=== PATIENT | female | born 1965 | race Two or more races ===

== ENCOUNTER 2021-05-01 21:59 | Inpatient (IN) | payer MEDICARE, OTHER ==
[2021-05-02] MEDS ORDERED: ONDANSETRON 4 MG/2 ML VIAL IVP PRN (03:34)
[2021-05-02] MEDS ORDERED: NALOXONE 0.4 MG/ML 1 ML VIAL IV PRN (03:34)
[2021-05-02] MEDS ORDERED: MELATONIN 3 MG TABLET PO PRN (03:34)
[2021-05-02] MEDS ORDERED: TACROLIMUS 1 MG CAP PO SCH ×2 (04:00→09:00)
[2021-05-02] MEDS: ACETAMINOPHEN TAB 325 MG TAB PO PRN ×2 (04:10→20:48)
[2021-05-02 05:02] LABS: Basophils % (A) 0 %; Eosinophils % (A) 0 %; HGB 12.5 gm/dL (11.4-16.0); Hypochromasia Moderate; Lymphocytes % (A) 9 %; MCH 26.4 pg (25.0-35.0); MCHC 30.4 g/dL (31.0-37.0); MCV 86.9 fL (80.0-100.0); Mean Platelet Volume 8.5; Monocytes # (A) 0.4 k/uL (0-1.0); Monocytes % (A) 4 %; Neutrophils # (A) 9.3 k/uL (1.3-7.7); Neutrophils % (A) 85 %; Platelet Count 132 k/uL (150-450); RBC 4.72 m/uL (3.80-5.40); RDW 14.3 % (11.5-15.5); WBC 10.8 k/uL (3.8-10.6)
[2021-05-02 05:11] LABS: ALT 19 U/L (4-34); AST 31 U/L (14-36); African American GFR (CKD) 78 (>60 ml/min/1.73 sqM); Albumin 3.9 g/dL (3.5-5.0); Albumin/Globulin Ratio 1.3; Alkaline Phosphatase 87 U/L (38-126); Anion Gap 14 mmol/L; Blood Urea Nitrogen 21 mg/dL (7-17); Calcium 8.7 mg/dL (8.4-10.2); Carbon Dioxide 18 mmol/L (22-30); Chloride 104 mmol/L (98-107); Glucose 351 mg/dL (74-99); Magnesium 1.5 mg/dL (1.6-2.3); Non-African American GFR(CKD) 68 (>60 ml/min/1.73 sqM); Potassium 4.4 mmol/L (3.5-5.1); Sodium 136 mmol/L (137-145); Total Bilirubin 0.3 mg/dL (0.2-1.3); Total Protein 6.9 g/dL (6.3-8.2)
[2021-05-02 07:52] LABS: Glucose,Whole Blood 333 mg/dL (75-99)
[2021-05-02] MEDS: HEPARIN SODIUM,PORCINE/PF 5,000 UNIT/0.5 ML SYRINGE SQ SCH ×2 (08:18→20:45)
[2021-05-02] MEDS: ASCORBIC ACID 500 MG TAB PO SCH (08:19)
[2021-05-02] MEDS: LEVOTHYROXINE 75 MCG TAB PO SCH (08:19)
[2021-05-02] MEDS: MAGNESIUM OXIDE 400 MG TAB PO SCH (08:19)
[2021-05-02] MEDS: carvediloL 3.125 MG TAB PO SCH ×3 (08:19→20:49)
[2021-05-02] MEDS: ATORVASTATIN 20 MG TAB PO SCH (08:19)
[2021-05-02] MEDS: amLODIPine 5 MG TAB PO SCH (08:19)
[2021-05-02] MEDS: ZINC SULFATE 220 MG CAP PO SCH (08:19)
[2021-05-02] MEDS: INSULIN ASPART (NovoLOG) 100 UNIT/ML VIAL SQ SCH ×6 (08:19→20:49)
[2021-05-02] MEDS: FERROUS SULFATE 325 MG TAB PO SCH (08:19)
[2021-05-02] MEDS: BENZOCAINE SPRAY 1 CAN TOPICAL PRN (10:02)
--- NOTE | 2021-05-02 11:53 | XR ---
EXAMINATION TYPE: XR chest 1V DATE OF EXAM: 05/02/2021 COMPARISON: NONE HISTORY: Cough TECHNIQUE: Single frontal view of the chest is obtained. FINDINGS: Bilateral lower lobe infiltrate and small effusion. Limited inspiration. Heart size normal . Hypertrophic change of the spine. No pneumothorax. Arthropathy of the shoulders. IMPRESSION: Bilateral lower lobe pneumonia.
[2021-05-02 11:54] LABS: Glucose,Whole Blood 315 mg/dL (75-99)
[2021-05-02 12:00] LABS: Basophils % (A) 0 %; Eosinophils % (A) 0 %; HCT 37.8 % (34.0-46.0); Hypochromasia Slight; Lymphocytes # (A) 1.1 k/uL (1.0-4.8); Lymphocytes % (A) 11 %; MCHC 31.6 g/dL (31.0-37.0); MCV 85.4 fL (80.0-100.0); Mean Platelet Volume 7.8; Monocytes # (A) 0.3 k/uL (0-1.0); Monocytes % (A) 3 %; Neutrophils # (A) 8.5 k/uL (1.3-7.7); Neutrophils % (A) 84 %; Platelet Count 133 k/uL (150-450); RBC 4.43 m/uL (3.80-5.40); RDW 14.4 % (11.5-15.5)
[2021-05-02 12:15] LABS: ALT 18 U/L (4-34); AST 28 U/L (14-36); African American GFR (CKD) 78 (>60 ml/min/1.73 sqM); Albumin 3.7 g/dL (3.5-5.0); Albumin/Globulin Ratio 1.2; Alkaline Phosphatase 78 U/L (38-126); Anion Gap 10 mmol/L; Blood Urea Nitrogen 22 mg/dL (7-17); C Reactive Protein 6.1 mg/dL (<1.0); Calcium 8.6 mg/dL (8.4-10.2); Carbon Dioxide 21 mmol/L (22-30); Chloride 106 mmol/L (98-107); Glucose 332 mg/dL (74-99); LDH 641 U/L (313-618); Non-African American GFR(CKD) 68 (>60 ml/min/1.73 sqM); Sodium 137 mmol/L (137-145); Total Bilirubin 0.3 mg/dL (0.2-1.3); Total Protein 6.7 g/dL (6.3-8.2)
[2021-05-02] MEDS: INSULIN DETEMIR (LEVEMIR) 100 UNIT/ML SYR SQ SCH (12:15)
[2021-05-02] MEDS: MAGNESIUM SULFATE-D5W PMX 1 GM in DEXTROSE/WATER 1 100ML.BAG IVPB SCH ×2 (12:15→13:33)
[2021-05-02 12:42] LABS: Potassium 4.1 mmol/L (3.5-5.1)
[2021-05-02] MEDS: BENZOCAINE/MENTHOL LOZENG 1 EACH LOZENGE MUCOUS MEM PRN ×2 (13:39→20:46)
--- NOTE | 2021-05-02 14:50 | P.HPIM ---
History of Present Illness Patient is pleasant 55-year-old post renal transplant came in with comments of cough or sore throat, odynophagia secondary to sore throat and cough and fever chills. Patient is found to have positive Covid 19. Patient was subsequently transferred here patient was bit hypoxic and was requiring oxygen about 2 L. Patient is still having fevers. Patient the blood sugars are uncontrolled and significantly high because of which I didn't started the patient on any systemic steroids yet my intention is to get a chest x-ray did show significant infiltrate to start her on steroids at that time. Patient does have history of renal transplant kidney function is within normal limits patient is on tacrolimus, mycophenolate with low magnesium which will be replaced. Infectious disease was consulted as well along with nephrology. Patient was comparing of shortness of breath as well REVIEW OF SYSTEMS: CONSTITUTIONAL: No fever, no malaise, no fatigue. HEENT: No recent visual problems or hearing problems. CARDIOVASCULAR: No chest pain, orthopnea, PND, no palpitations, no syncope. PULMONARY:no hemoptysis. GASTROINTESTINAL: No diarrhea, no nausea, no vomiting, no abdominal pain. NEUROLOGICAL: No headaches, no weakness, no numbness. HEMATOLOGICAL: Denies any bleeding or petechiae. GENITOURINARY: Denies any burning micturition, frequency, or urgency. MUSCULOSKELETAL/RHEUMATOLOGICAL: Denies any joint pain, swelling, or any muscle pain. ENDOCRINE: Denies any polyuria or polydipsia. The rest of the 14-point review of systems is negative. PHYSICAL EXAMINATION: GENERAL: The patient is alert and oriented x3, not in any acute distress. Well developed, well nourished. HEENT: Pupils are round and equally reacting to light. EOMI. No scleral icterus. No conjunctival pallor. Normocephalic, atraumatic. No pharyngeal erythema. No thyromegaly. CARDIOVASCULAR: S1 and S2 present. No murmurs, rubs, or gallops. PULMONARY: Chest is clear to auscultation, no wheezing or crackles. ABDOMEN: Soft, nontender, nondistended, normoactive bowel sounds. No palpable organomegaly. MUSCULOSKELETAL: No joint swelling or deformity. EXTREMITIES: No cyanosis, clubbing, or pedal edema. NEUROLOGICAL: Gross neurological examination did not reveal any focal deficits. SKIN: No rashes. Assessment and plan -Sepsis Secondary to possible Covid 19 pneumonia: Considering her highly elevated blood sugars I will leave the decision of starting her on systemic steroids to infectious disease., Patient sore throat and a failure probably related to posterior pharyngeal inflammation. Covid 19 infection. Patient's symptom onset was 3 days ago patient is already feeling better considering her a daily of symptoms probably it's better to hold off on steroids. Continue with oxygen support --Type 2 diabetes mellitus: Uncontrolled elevated blood sugars patient was started on her home regimen titration depending on her blood sugars -Hyperlipidemia -Hypertension -Hyperthyroidism -Post renal transplant renal transplant was in 2011 continue with the immunosuppressive therapy DVT prophylaxis: Lovenox Past Medical History Past Medical History: Diabetes Mellitus, Hyperlipidemia, Hypertension, Thyroid Disorder History of Any Multi-Drug Resistant Organisms: None Reported Additional Past Surgical History / Comment(s): kidney transplant in 2011 Past Anesthesia/Blood Transfusion Reactions: No Reported Reaction Past Psychological History: No Psychological Hx Reported Smoking Status: Never smoker Past Alcohol Use History: None Reported Past Drug Use History: None Reported Medications and Allergies Home Medications Medication Instructions Recorded Confirmed Type Allopurinol [Zyloprim] 100 mg PO Q48H 05/02/21 05/02/21 History Atorvastatin [Lipitor] 20 mg PO DAILY 05/02/21 05/02/21 History Carvedilol [Coreg] 3.125 mg PO BID 05/02/21 05/02/21 History Ferrous Sulfate [Iron (65 MG 325 mg PO DAILY 05/02/21 05/02/21 History Elemental)] Furosemide [Lasix] 20 mg PO Q48H 05/02/21 05/02/21 History Insulin Aspart [NovoLOG Flexpen] 10 units SQ AC-TID 05/02/21 05/02/21 History Insulin Aspart [NovoLOG Flexpen] See Protocol SQ AC-TID 05/02/21 05/02/21 History Insulin Glargine,Hum.rec.anlog 60 units SQ DAILY 05/02/21 05/02/21 History [Toujeo Solostar] Levothyroxine Sodium [Synthroid] 75 mcg PO DAILY 05/02/21 05/02/21 History Magnesium Oxide 400 mg PO DAILY 05/02/21 05/02/21 History Mycophenolate Mofetil [Cellcept] 500 mg PO BID 05/02/21 05/02/21 History Potassium Chloride 10 meq PO DAILY 05/02/21 05/02/21 History Tacrolimus [Prograf] 2 mg PO Q12H 05/02/21 05/02/21 History amLODIPine [Norvasc] 5 mg PO DAILY 05/02/21 05/02/21 History calcitrioL [Calcitriol] 0.25 mcg PO MOWEFRSA 05/02/21 05/02/21 History Allergies Allergy/AdvReac Type Severity Reaction Status Date / Time clindamycin Allergy Rash/Hives Verified 05/02/21 07:02 Physical Exam Vitals: Vital Signs Temp Pulse Resp BP Pulse Ox 05/02/21 14:04 99.1 F 71 17 114/66 97 05/02/21 09:19 98.5 F 83 18 128/63 94 L 05/02/21 05:48 100 F H 05/02/21 03:49 94 L 05/02/21 03:36 103.1 F H 05/02/21 03:20 103.6 F H 85 19 169/84 94 L 05/02/21 02:17 103 F H 87 24 163/78 96 Intake and Output 05/01/21 05/02/21 05/02/21 22:59 06:59 14:59 Other: # Voids 2 # Bowel Movements 1 Weight 103.419 kg Results CBC & Chem 7: 05/02/21 11:38 05/02/21 11:38 Labs: Abnormal Lab Results - Last 24 Hours (Table) 05/02/21 05/02/21 05/02/21 Range/Units 04:35 04:35 07:46 WBC 10.8 H (3.8-10.6) k/uL MCHC 30.4 L (31.0-37.0) g/dL Plt Count 132 L (150-450) k/uL Neutrophils # 9.3 H (1.3-7.7) k/uL D-Dimer (<0.60) mg/L FEU Sodium 136 L (137-145) mmol/L Carbon Dioxide 18 L (22-30) mmol/L BUN 21 H (7-17) mg/dL Glucose 351 H (74-99) mg/dL POC Glucose (mg/dL) 333 H (75-99) mg/dL Magnesium 1.5 L (1.6-2.3) mg/dL Lactate Dehydrogenase (313-618) U/L C-Reactive Protein (<1.0) mg/dL 05/02/21 05/02/21 05/02/21 Range/Units 11:38 11:38 11:38 WBC (3.8-10.6) k/uL MCHC (31.0-37.0) g/dL Plt Count 133 L (150-450) k/uL Neutrophils # 8.5 H (1.3-7.7) k/uL D-Dimer 0.68 H (<0.60) mg/L FEU Sodium (137-145) mmol/L Carbon Dioxide 21 L (22-30) mmol/L BUN 22 H (7-17) mg/dL Glucose 332 H (74-99) mg/dL POC Glucose (mg/dL) (75-99) mg/dL Magnesium (1.6-2.3) mg/dL Lactate Dehydrogenase 641 H (313-618) U/L C-Reactive Protein 6.1 H (<1.0) mg/dL 05/02/21 Range/Units 11:48 WBC (3.8-10.6) k/uL MCHC (31.0-37.0) g/dL Plt Count (150-450) k/uL Neutrophils # (1.3-7.7) k/uL D-Dimer (<0.60) mg/L FEU Sodium (137-145) mmol/L Carbon Dioxide (22-30) mmol/L BUN (7-17) mg/dL Glucose (74-99) mg/dL POC Glucose (mg/dL) 315 H (75-99) mg/dL Magnesium (1.6-2.3) mg/dL Lactate Dehydrogenase (313-618) U/L C-Reactive Protein (<1.0) mg/dL Thrombosis Risk Factor Assmnt - Choose All That Apply Each Factor Represents 1 point: Obesity (BMI >25) Other Risk Factors: No Other congenital or acquired thrombophilia - If yes, enter type in comment: No Thrombosis Risk Factor Assessment Total Risk Factor Score: 1 Thrombosis Risk Factor Assessment Level: Low Risk
[2021-05-02 14:53] LABS: Hemoglobin A1C 9.1 % (4.0-6.0)
[2021-05-02 16:38] LABS: Glucose,Whole Blood 186 mg/dL (75-99)
--- NOTE | 2021-05-02 19:03 | CONS ---
CONSULTATION REASON FOR CONSULT: History of renal transplant. HISTORY OF PRESENT ILLNESS: Patient is a 55-year-old female with history of living related renal transplant from her brother in 2011 in [place]. The patient is currently maintained on CellCept and tacrolimus. Her baseline creatinine is less than 1 and at this time patient is admitted to the hospital with complaints of severe pain in her throat and upper respiratory tract symptoms. Patient tested positive for israel virus. She states that currently she has had good urine output. Patient is maintained on 2 L nasal cannula with O2 sats at about 94%. PAST MEDICAL HISTORY Type 2 DM, HTN, hyperlipidemia, hypothyroidism PAST SURGICAL HISTORY Renal transplant 2011 SOCIAL HISTORY negative for smoking, drug abuse or alcohol abuse. MEDICATIONS Prograf, cellcept, lasix, insulin, magnesium,synthroid, norvasc, calcitriol.potassium ALLERGIES Clindamycin EXAMINATION: On examination today, blood pressure 128/63, heart rate 83 per minute. She is afebrile. Examination of lower extremities shows no evidence of edema. OPTICS ENGINEER exam grossly intact. LABS: Show hemoglobin 12.5, white cell count 10.8, sodium 136, potassium 4.4, BUN 21, creatinine 0.96, CO2 is 18. ASSESSMENT: 1. Status post living-related renal transplant in 2011 in [place]. Currently maintained on CellCept and tacrolimus. I have advised the patient that I will decrease the CellCept and tacrolimus due to her underlying Covid infection, particularly given her respiratory symptoms. Chest x-ray has been ordered. We will monitor the respiratory symptoms and if her respiratory status worsens, all immunosuppressive medications will be on hold. Patient will likely be started on steroids as well. 2. Covid infection with significant sore throat and possible underlying COVID pneumonia. Chest x-ray is currently pending. 3. Mild metabolic acidosis secondary to calcineurin inhibitors. Recheck labs in a.m. 4. Secondary hyperparathyroidism, maintained on calcitriol. PLAN: Decrease Prograf to 1 mg q.12 hours. Decrease CellCept to 500 mg daily add steroids as per ID and if respiratory status worsens, I will discontinue all immunosuppressive medications. Thank you for this consultation. We will continue to follow the patient with you during her hospitalization. MMODL / IJN: [id number] / VONDA
[2021-05-02] MEDS ORDERED: AZITHROMYCIN 500 MG TAB PO STA (19:49)
[2021-05-02 20:29] LABS: Glucose,Whole Blood 97 mg/dL (75-99)
[2021-05-02] MEDS: TACROLIMUS 1 MG CAP PO SCH ×2 (20:47→20:50)
--- NOTE | 2021-05-02 22:27 | P.CONS ---
History of Present Illness - Reason for Consult Consult date: 05/02/21 COVID-19 infection Requesting physician: Liss Horton - Chief Complaint sore throat x few days - History of Present Illness Patient is a 55-year-old female with a past medical history significant for living related renal transplant in 2011 patient is currently maintained on CellCept and tacrolimus for the immunosuppression patient presented to the outside facility for evaluation of cough and sore throat the patient symptom has been going on for a day or 2 before presentation to the hospital patient was evaluated at the outside facility with the patient was noted to have rapid test positive for COVID-19 she was hypoxic for the patient was transferred to [facility] for further management patient did have a 2 shots of moderna vaccine few months ago, patient denies any sick contact did have mild headache and a sore throat been her main symptoms and odynophagia. Denies having any chest pain shortness of breath minimal cough no sputum production no nausea no vomiting no abdominal pain or any diarrhea patient on presentation to this facility did have a fever of 103 F patient was hypoxic with O2 sats of 94% currently 96% on 2 L nasal cannula patient did have mild elevated white count of 10.8 with a left shift no lymphopenia creatinine was normal liver enzymes are normal patient did have a chest x-ray completed shows bilateral lower lobe pneumonia patient was admitted to hospital for she was consulted for further management Review of Systems Positive point has been mentioned in the HPI rest of the systems are negative Past Medical History Past Medical History: Diabetes Mellitus, Hyperlipidemia, Hypertension, Thyroid Disorder History of Any Multi-Drug Resistant Organisms: None Reported Additional Past Surgical History / Comment(s): kidney transplant in 2011 Past Anesthesia/Blood Transfusion Reactions: No Reported Reaction Past Psychological History: No Psychological Hx Reported Smoking Status: Never smoker Past Alcohol Use History: None Reported Past Drug Use History: None Reported Medications and Allergies Home Medications Medication Instructions Recorded Confirmed Type Allopurinol [Zyloprim] 100 mg PO Q48H 05/02/21 05/02/21 History Atorvastatin [Lipitor] 20 mg PO DAILY 05/02/21 05/02/21 History Carvedilol [Coreg] 3.125 mg PO BID 05/02/21 05/02/21 History Ferrous Sulfate [Iron (65 MG 325 mg PO DAILY 05/02/21 05/02/21 History Elemental)] Furosemide [Lasix] 20 mg PO Q48H 05/02/21 05/02/21 History Insulin Aspart [NovoLOG Flexpen] 10 units SQ AC-TID 05/02/21 05/02/21 History Insulin Aspart [NovoLOG Flexpen] See Protocol SQ AC-TID 05/02/21 05/02/21 History Insulin Glargine,Hum.rec.anlog 60 units SQ DAILY 05/02/21 05/02/21 History [Toujeo Solostar] Levothyroxine Sodium [Synthroid] 75 mcg PO DAILY 05/02/21 05/02/21 History Magnesium Oxide 400 mg PO DAILY 05/02/21 05/02/21 History Mycophenolate Mofetil [Cellcept] 500 mg PO BID 05/02/21 05/02/21 History Potassium Chloride 10 meq PO DAILY 05/02/21 05/02/21 History Tacrolimus [Prograf] 2 mg PO Q12H 05/02/21 05/02/21 History amLODIPine [Norvasc] 5 mg PO DAILY 05/02/21 05/02/21 History calcitrioL [Calcitriol] 0.25 mcg PO MOWEFRSA 05/02/21 05/02/21 History Allergies Allergy/AdvReac Type Severity Reaction Status Date / Time clindamycin Allergy Rash/Hives Verified 05/02/21 07:02 Physical Exam Vitals: Vital Signs Temp Pulse Resp BP Pulse Ox 05/02/21 09:19 98.5 F 83 18 128/63 94 L 05/02/21 05:48 100 F H 05/02/21 03:49 94 L 05/02/21 03:36 103.1 F H 05/02/21 03:20 103.6 F H 85 19 169/84 94 L 05/02/21 02:17 103 F H 87 24 163/78 96 Intake and Output 05/01/21 05/02/21 05/02/21 22:59 06:59 14:59 Other: # Voids 2 # Bowel Movements 1 Weight 103.419 kg GENERAL DESCRIPTION: Middle-aged female lying in bed, no distress. No tachypnea or accessory muscle of respiration use. HEENT: Shows Pallor , no scleral icterus. Oral mucous membrane is dry. No pharyngeal erythema or thrush NECK: Trachea central, no thyromegaly. LUNGS: Unlabored breathing. decreased breath sounds at base. No wheeze or crackle. HEART: S1, S2, regular rate and rhythm. No loud murmur ABDOMEN: Soft, no tenderness , guarding or rigidity, no organomegaly EXTREMITIES: No edema of feet. SKIN: No rash, no masses palpable. NEUROLOGICAL: The patient is awake, alert, oriented x3, mood and affect normal. Results CBC & Chem 7: 05/02/21 11:38 05/02/21 11:38 Labs: Abnormal Lab Results - Last 24 Hours (Table) 05/02/21 05/02/21 05/02/21 Range/Units 04:35 04:35 07:46 WBC 10.8 H (3.8-10.6) k/uL MCHC 30.4 L (31.0-37.0) g/dL Plt Count 132 L (150-450) k/uL Neutrophils # 9.3 H (1.3-7.7) k/uL Sodium 136 L (137-145) mmol/L Carbon Dioxide 18 L (22-30) mmol/L BUN 21 H (7-17) mg/dL Glucose 351 H (74-99) mg/dL POC Glucose (mg/dL) 333 H (75-99) mg/dL Magnesium 1.5 L (1.6-2.3) mg/dL Assessment and Plan Assessment: patient presented to hospital with a fever sore throat in this patient who did have a cough no sputum production patient did have a 2 doses of Covid vaccine few months ago currently do not have any lymphopenia or any evidence of blood loss peripheral infiltrate which is usually pathognomonic for COVID-19 pneumonia possible community-acquired pneumonia versus COVID-19 infection (1) Pneumonia Current Visit: Yes Status: Acute Code(s): J18.9 - PNEUMONIA, UNSPECIFIED ORGANISM SNOMED Code(s): 139664075 (2) Fever Current Visit: Yes Status: Acute Code(s): R50.9 - FEVER, UNSPECIFIED SNOMED Code(s): 055309716 Plan: 1-We will obtain a CRP procalcitonin D-dimer levels , check nasopharyngeal swab for israel PCR as well as COVID-19 antibodies 2-obtain sputum for Gram stain culture 3-empirically add Rocephin and Zithromax while waiting for the work-up to finalize We will follow on clinical condition and cultures to further adjust medication if needed Thank you for this consultation we will follow the patient along with you Time with Patient: Greater than 30
[2021-05-03] MEDS: BENZOCAINE SPRAY 1 CAN TOPICAL PRN (05:37)
[2021-05-03] MEDS: LEVOTHYROXINE 75 MCG TAB PO SCH (05:38)
[2021-05-03 07:34] LABS: Glucose,Whole Blood 101 mg/dL (75-99)
[2021-05-03] MEDS: INSULIN ASPART (NovoLOG) 100 UNIT/ML VIAL SQ SCH ×7 (08:39→21:48)
[2021-05-03] MEDS: FERROUS SULFATE 325 MG TAB PO SCH (08:50)
[2021-05-03] MEDS: HEPARIN SODIUM,PORCINE/PF 5,000 UNIT/0.5 ML SYRINGE SQ SCH ×2 (08:50→19:42)
[2021-05-03] MEDS: INSULIN DETEMIR (LEVEMIR) 100 UNIT/ML SYR SQ SCH (08:50)
[2021-05-03] MEDS: carvediloL 3.125 MG TAB PO SCH ×2 (08:50→19:42)
[2021-05-03] MEDS: ATORVASTATIN 20 MG TAB PO SCH (08:50)
[2021-05-03] MEDS: ASCORBIC ACID 500 MG TAB PO SCH (08:50)
[2021-05-03] MEDS: MAGNESIUM OXIDE 400 MG TAB PO SCH (08:50)
[2021-05-03] MEDS: amLODIPine 5 MG TAB PO SCH (08:50)
[2021-05-03] MEDS: ZINC SULFATE 220 MG CAP PO SCH (08:50)
[2021-05-03] MEDS: TACROLIMUS 1 MG CAP PO SCH ×2 (08:51→19:43)
[2021-05-03] MEDS: ACETAMINOPHEN TAB 325 MG TAB PO PRN ×3 (08:53→19:39)
[2021-05-03 12:24] LABS: Glucose,Whole Blood 93 mg/dL (75-99)
[2021-05-03] MEDS: NYSTATIN 100,000 UNIT/ML SUSP 500,000 UNIT/5 ML CUP PO SCH ×3 (13:52→19:45)
--- NOTE | 2021-05-03 14:41 | PN ---
PROGRESS NOTE Patient is seen for followup, status post kidney transplant. The patient was admitted with complaints of sore throat, some shortness of breath and hypoxia. She tested positive for Covid-19. She is being followed by Infectious Disease, maintained on antibiotics. She is not yet on steroids at this point. Her blood sugars had been significantly elevated. Prograf was decreased to 1 mg twice a day and CellCept to 500 mg daily in anticipation of initiation of steroids. Overall, patient states she is feeling better. PHYSICAL EXAMINATION: On examination today, blood pressure is 116/69, heart rate 77 per minute. She is afebrile. EXAMINATION OF THE ABDOMEN: Soft, nontender. LOWER EXTREMITIES: Examination of lower extremities shows no evidence of edema. Heart and lungs are not examined. CALL CENTER SUPERVISOR EXAM: Grossly intact. LABS: Labs show sodium 137, potassium 4.1, serum creatinine 0.96 on 05/02/2021. ASSESSMENT: 1. Status post living-related renal transplant 2011 in [place], maintained on Prograf 2 mg b.i.d. at home along with CellCept 500 mg b.i.d. CellCept and Prograf are decreased slightly on this admission. As long as patient continues to improve, we can resume her usual dose of immunosuppressive medications in 2-3 days post discharge. If her Covid status worsens, patient will need the immunosuppressive medications to be held. 2. Covid-19 pneumonia, being followed by Infectious Disease. Awaiting decision regarding initiation of steroids. 3. Hyperparathyroidism, maintained on calcitriol. 4. Hypertension, currently controlled. MMODL / IJN: [id number] /
[2021-05-03 15:39] VITALS: BMI 41.7
--- NOTE | 2021-05-03 16:48 | P.PN ---
Subjective Progress Note Date: 05/03/21 Patient is pleasant 55-year-old post renal transplant came in with comments of cough or sore throat, odynophagia secondary to sore throat and cough and fever chills. Patient is found to have positive Covid 19. Patient was subsequently transferred here patient was bit hypoxic and was requiring oxygen about 2 L. Patient is still having fevers. Patient the blood sugars are uncontrolled and significantly high because of which I didn't started the patient on any systemic steroids yet my intention is to get a chest x-ray did show significant infiltrate to start her on steroids at that time. Patient does have history of renal transplant kidney function is within normal limits patient is on tacroli mus, mycophenolate with low magnesium which will be replaced. Infectious disease was consulted as well along with nephrology. Patient was comparing of shortness of breath as well 05/03/2021 Patient is seen in follow-up this morning continues to complain of extreme sore throat and irritation and patient is noted to have white patches noted on her upper palate along with tongue and will start nystatin. Hurricaine spray along with Cepacol as needed. Nephrology following and stopping immunotherapies and monitoring closely. Infectious disease is also following for Covid 19 infection prognosis possible bacterial pneumonia. Patient is maintained on IV ceftriaxone and was given a dose of Zithromax. Patient also continues on subcutaneous heparin along with vitamin and zinc supplements and will continue at this time. She and is requiring oxygen at 3-4 L via nasal cannula current oxygen saturation is 89-91%. Patient is also having an intermittent low-grade temp this afternoon of 100.4 and will continue to monitor closely. Patient denies any worsening shortness of breath and mostly complains of mouth pain and extreme sore throat. Patient denies any feelings of throat swelling. Repeat Covid PCR is positive and Covid antibody is nonreactive. Patient is fully vaccinated. Patient states her partner is also experiencing symptoms and currently being tested. Review of systems: Constitutional: reports of fatigue, reports low-grade fever, no reports of chills Cardiovascular: No reports of chest pain or palpitations Respiratory: No reports of worsening shortness of breath, reports mouth pain and sore throat GI: No reports of nausea, vomiting, or diarrhea : No reports of dysuria or retention Neurovascular: Reports generalized weakness and body aches All medications have been reviewed PHYSICAL EXAMINATION: GENERAL: The patient is alert and oriented x3, not in any acute distress. Well developed, well nourished. HEENT: Pupils are round and equally reacting to light. EOMI. No scleral icterus. No conjunctival pallor. Normocephalic, atraumatic. No pharyngeal erythema. No thyromegaly. Upper palate noted with white patches along with patches on the tongue CARDIOVASCULAR: S1 and S2 present. No murmurs, rubs, or gallops. PULMONARY: Chest is clear to auscultation, no wheezing or crackles. ABDOMEN: Soft, nontender, nondistended, normoactive bowel sounds. No palpable organomegaly. MUSCULOSKELETAL: No joint swelling or deformity. EXTREMITIES: No cyanosis, clubbing, or pedal edema. NEUROLOGICAL: Gross neurological examination did not reveal any focal deficits. SKIN: No rashes. Assessment and plan -Sepsis Secondary to possible Covid 19 pneumonia: Considering her highly elevated blood sugars I will leave the decision of starting her on systemic steroids to infectious disease., Patient sore throat and a failure probably related to posterior pharyngeal inflammation. Covid 19 infection. Patient's symptom onset was 3 days ago patient is already feeling better considering her a daily of symptoms probably it's better to hold off on steroids. Continue with oxygen support -Intermittent low-grade temps secondary to above -Odynophagia possibly secondary to fungal esophagitis, starting nystatin and will monitor for improvement in symptoms -Type 2 diabetes mellitus: Uncontrolled elevated blood sugars patient was started on her home regimen titration depending on her blood sugars, better controlled today on current regimen and will continue to monitor -Hyperlipidemia -Hypertension -Hyperthyroidism -Post renal transplant renal transplant was in 2011 continue with the immunosuppressive therapy -DVT prophylaxis: Lovenox Objective - Vital Signs Vital signs: Vital Signs Temp 98.9 F 05/03/21 05:51 Pulse 77 05/03/21 05:51 Resp 16 05/03/21 05:51 BP 116/69 05/03/21 05:51 Pulse Ox 98 05/03/21 09:10 Intake & Output 05/02/21 05/03/21 05/03/21 18:59 06:59 18:59 Output Total 4 Balance -4 Output: Urine 4 Other: Voiding Method Toilet # Voids 3 - Labs CBC & Chem 7: 05/02/21 11:38 05/02/21 11:38 Labs: Abnormal Lab Results - Last 24 Hours (Table) 05/02/21 05/02/21 05/02/21 Range/Units 04:35 11:38 11:38 Plt Count 133 L (150-450) k/uL Neutrophils # 8.5 H (1.3-7.7) k/uL D-Dimer 0.68 H (<0.60) mg/L FEU Carbon Dioxide (22-30) mmol/L BUN (7-17) mg/dL Glucose (74-99) mg/dL POC Glucose (mg/dL) (75-99) mg/dL Hemoglobin A1c 9.1 H (4.0-6.0) % Lactate Dehydrogenase (313-618) U/L C-Reactive Protein (<1.0) mg/dL Procalcitonin (0.02-0.09) ng/mL 05/02/21 05/02/21 05/02/21 Range/Units 11:38 11:38 11:48 Plt Count (150-450) k/uL Neutrophils # (1.3-7.7) k/uL D-Dimer (<0.60) mg/L FEU Carbon Dioxide 21 L (22-30) mmol/L BUN 22 H (7-17) mg/dL Glucose 332 H (74-99) mg/dL POC Glucose (mg/dL) 315 H (75-99) mg/dL Hemoglobin A1c (4.0-6.0) % Lactate Dehydrogenase 641 H (313-618) U/L C-Reactive Protein 6.1 H (<1.0) mg/dL Procalcitonin 5.03 H (0.02-0.09) ng/mL 05/02/21 05/03/21 Range/Units 16:35 07:32 Plt Count (150-450) k/uL Neutrophils # (1.3-7.7) k/uL D-Dimer (<0.60) mg/L FEU Carbon Dioxide (22-30) mmol/L BUN (7-17) mg/dL Glucose (74-99) mg/dL POC Glucose (mg/dL) 186 H 101 H (75-99) mg/dL Hemoglobin A1c (4.0-6.0) % Lactate Dehydrogenase (313-618) U/L C-Reactive Protein (<1.0) mg/dL Procalcitonin (0.02-0.09) ng/mL
[2021-05-03 17:13] LABS: Glucose,Whole Blood 94 mg/dL (75-99)
[2021-05-03] MEDS ORDERED: ENOXAPARIN 40 MG/0.4 ML SYRINGE SQ SCH (20:15)
[2021-05-03 20:51] LABS: Glucose,Whole Blood 126 mg/dL (75-99)
[2021-05-03] MEDS ORDERED: REMDESIVIR 200 MG in SODIUM CHLORIDE 0.9% 250 ML IVPB ONE (21:00)
[2021-05-03] MEDS: DEXAMETHASONE SOD PHOSPHATE 10 MG/ML 1 ML VIAL IV SCH (22:02)
--- NOTE | 2021-05-03 22:37 | PN ---
PROGRESS NOTE DATE OF SERVICE: 05/03/2021 REASON FOR FOLLOW UP: Covid-19 pneumonia. INTERVAL HISTORY: The patient has been running a fever with a temperature of 100.7 this morning. The patient has been complaining of a sore throat; slightly improved, though. No chest pain or shortness of breath. Occasional cough. No abdominal pain or diarrhea. PHYSICAL EXAMINATION: Blood pressure 105/58 with a pulse of 83, temperature . She is 90% on 4 L nasal cannula. GENERAL DESCRIPTION: General description is middle-aged female lying in bed in no distress. RESPIRATORY SYSTEM: Unlabored breathing. Decreased intensity of breath sounds. No wheeze. HEART: S1, S2. Regular rate and rhythm. ABDOMEN: Soft. No tenderness. EXTREMITIES: No edema of the feet. LABS: The [place] PCR came back positive. DIAGNOSTIC IMPRESSION AND PLAN: Patient with acute COVID-19 infection with confirmation on the PCR. has been negative. Patient also has elevated procalcitonin. Will continue Rocephin, and dexamethasone and remdesivir about 3-4 days. Continue with zinc, ascorbic acid and respiratory support and monitor clinical course closely. MMODL / IJN: [id number] /
[2021-05-04] MEDS: ACETAMINOPHEN TAB 325 MG TAB PO PRN ×3 (00:05→21:08)
[2021-05-04] MEDS: LEVOTHYROXINE 75 MCG TAB PO SCH (05:40)
[2021-05-04 07:14] LABS: Glucose,Whole Blood 133 mg/dL (75-99)
[2021-05-04] MEDS: INSULIN ASPART (NovoLOG) 100 UNIT/ML VIAL SQ SCH ×7 (08:08→21:08)
[2021-05-04] MEDS ORDERED: Magnesium Replacement Protocol 1 EACH MISC MISCELLANE PRN (08:19)
--- NOTE | 2021-05-04 10:17 | P.PN ---
Subjective Patient is seen in follow-up for kidney transplant management. Renal function is stable. Remains on 4 L nasal cannula. No chest pain or shortness of breath at this time. Good urine output. Vital signs are stable. General: The patient appeared well nourished and normally developed. HEENT: Head exam is unremarkable. On nasal cannula. LUNGS: Breath sounds decreased. HEART: Rate and Rhythm are regular. ABDOMEN: Soft, no distention. EXTREMITITES: No edema. Objective - Vital Signs Vital signs: Vital Signs Temp 99.6 F 05/04/21 07:35 Pulse 78 05/04/21 08:00 Resp 20 05/04/21 08:00 BP 162/79 05/04/21 07:35 Pulse Ox 93 L 05/04/21 07:35 Intake & Output 05/03/21 05/04/21 05/04/21 18:59 06:59 18:59 Weight 103.419 kg Other: Voiding Method Toilet # Voids 4 3 # Bowel Movements 1 4 - Labs CBC & Chem 7: 05/02/21 11:38 05/02/21 11:38 Labs: Abnormal Lab Results - Last 24 Hours (Table) 05/02/21 05/03/21 05/04/21 Range/Units 13:30 20:50 07:13 POC Glucose (mg/dL) 126 H 133 H (75-99) mg/dL Coronavirus (PCR) Detected A (Not Detected) Assessment and Plan Plan: Assessment: 1. Status post living related renal allograft in 2011. Baseline creatinine near 1. 2. Acute hypoxic respiratory failure secondary to COVID-19 infection. Currently on 4 L nasal cannula. 3. Metabolic acidosis secondary to acute kidney injury. 4. Benign hypertension. Stable. 5. Chronic kidney disease mineral bone disease maintained on calcitriol. 6. Hypomagnesemia from poor intake. Being replaced. Plan: Maintain steroids and immunosuppression medications. Dose has been decreased. If respiratory status worsens, will hold immunosuppression meds completely. Avoid nephrotoxins. Repeat labs in the morning.
--- NOTE | 2021-05-04 10:43 | P.PN ---
Subjective Patient is pleasant 55-year-old post renal transplant came in with comments of cough or sore throat, odynophagia secondary to sore throat and cough and fever chills. Patient is found to have positive Covid 19. Patient was subsequently transferred here patient was bit hypoxic and was requiring oxygen about 2 L. Patient is still having fevers. Patient the blood sugars are uncontrolled and significantly high because of which I didn't started the patient on any systemic steroids yet my intention is to get a chest x-ray did show significant in filtrate to start her on steroids at that time. Patient does have history of renal transplant kidney function is within normal limits patient is on tacrolimus, mycophenolate with low magnesium which will be replaced. Infectious disease was consulted as well along with nephrology. Patient was comparing of shortness of breath as well 05/03/2021 Patient is seen in follow-up this morning continues to complain of extreme sore throat and irritation and patient is noted to have white patches noted on her upper palate along with tongue and will start nystatin. Hurricaine spray along with Cepacol as needed. Nephrology following and stopping immunotherapies and monitoring closely. Infectious disease is also following for Covid 19 infection prognosis possible bacterial pneumonia. Patient is maintained on IV ceftriaxone and was given a dose of Zithromax. Patient also continues on subcutaneous heparin along with vitamin and zinc supplements and will continue at this time. She and is requiring oxygen at 3-4 L via nasal cannula current oxygen saturation is 89-91%. Patient is also having an intermittent low-grade temp this afternoon of 100.4 and will continue to monitor closely. Patient denies any worsening shortness of breath and mostly complains of mouth pain and extreme sore throat. Patient denies any feelings of throat swelling. Repeat Covid PCR is positive and Covid antibody is nonreactive. Patient is fully vaccinated. Patient states her partner is also experiencing symptoms and currently being tested. 05/04/2021 patient was on 4 L of oxygen. We'll continue to monitor. PHYSICAL EXAMINATION: GENERAL: The patient is alert and oriented x3, not in any acute distress. Well developed, well nourished. HEENT: Pupils are round and equally reacting to light. EOMI. No scleral icterus. No conjunctival pallor. Normocephalic, atraumatic. No pharyngeal erythema. No thyromegaly. Upper palate noted with white patches along with patches on the tongue CARDIOVASCULAR: S1 and S2 present. No murmurs, rubs, or gallops. PULMONARY: Chest is clear to auscultation, no wheezing or crackles. ABDOMEN: Soft, nontender, nondistended, normoactive bowel sounds. No palpable organomegaly. MUSCULOSKELETAL: No joint swelling or deformity. EXTREMITIES: No cyanosis, clubbing, or pedal edema. NEUROLOGICAL: Gross neurological examination did not reveal any focal deficits. SKIN: No rashes. Assessment and plan -Sepsis Secondary to possible Covid 19 pneumonia: Patient is presently on Decadron and Covid vitamins. Patient did sugars are well controlled at this time. is presently on 4 L of oxygen -Odynophagia possibly secondary to fungal esophagitis, starting nystatin and will monitor for improvement in symptoms -Type 2 diabetes mellitus: Uncontrolled elevated blood sugars patient was started on her home regimen titration depending on her blood sugars, better controlled today on current regimen and will continue to monitor -Hyperlipidemia -Hypertension -Hyperthyroidism -Post renal transplant renal transplant was in 2011 continue with the immunosuppressive therapy -DVT prophylaxis: Lovenox Objective - Vital Signs Vital signs: Vital Signs Temp 99.6 F 05/04/21 07:35 Pulse 78 05/04/21 08:00 Resp 20 05/04/21 08:00 BP 162/79 05/04/21 07:35 Pulse Ox 93 L 05/04/21 07:35 Intake & Output 05/03/21 05/04/21 05/04/21 18:59 06:59 18:59 Weight 103.419 kg Other: Voiding Method Toilet # Voids 4 3 # Bowel Movements 1 4 - Labs CBC & Chem 7: 05/02/21 11:38 05/02/21 11:38 Labs: Abnormal Lab Results - Last 24 Hours (Table) 05/02/21 05/03/21 05/04/21 Range/Units 13:30 20:50 07:13 POC Glucose (mg/dL) 126 H 133 H (75-99) mg/dL Coronavirus (PCR) Detected A (Not Detected)
[2021-05-04] MEDS: MAGNESIUM SULFATE-D5W PMX 1 GM in DEXTROSE/WATER 1 100ML.BAG IVPB SCH ×2 (10:48→13:21)
[2021-05-04] MEDS: MAGNESIUM OXIDE 400 MG TAB PO SCH (10:49)
[2021-05-04] MEDS: NYSTATIN 100,000 UNIT/ML SUSP 500,000 UNIT/5 ML CUP PO SCH ×4 (10:49→21:08)
[2021-05-04] MEDS: TACROLIMUS 1 MG CAP PO SCH ×2 (10:49→21:09)
[2021-05-04] MEDS: ASCORBIC ACID 500 MG TAB PO SCH (10:49)
[2021-05-04] MEDS: carvediloL 3.125 MG TAB PO SCH ×2 (10:49→21:08)
[2021-05-04] MEDS: FERROUS SULFATE 325 MG TAB PO SCH (10:49)
[2021-05-04] MEDS: DEXAMETHASONE SOD PHOSPHATE 10 MG/ML 1 ML VIAL IV SCH (10:49)
[2021-05-04] MEDS: ZINC SULFATE 220 MG CAP PO SCH (10:50)
[2021-05-04] MEDS: ATORVASTATIN 20 MG TAB PO SCH (10:50)
[2021-05-04] MEDS: amLODIPine 5 MG TAB PO SCH (10:50)
[2021-05-04] MEDS: INSULIN DETEMIR (LEVEMIR) 100 UNIT/ML SYR SQ SCH (10:51)
[2021-05-04] MEDS: ENOXAPARIN 40 MG/0.4 ML SYRINGE SQ SCH (10:51)
[2021-05-04 11:34] LABS: Glucose,Whole Blood 264 mg/dL (75-99)
[2021-05-04 16:55] LABS: Glucose,Whole Blood 258 mg/dL (75-99)
[2021-05-04] MEDS: BENZOCAINE SPRAY 1 CAN TOPICAL PRN (17:31)
--- NOTE | 2021-05-04 19:23 | PN ---
PROGRESS NOTE DATE OF SERVICE: 05/04/2021. REASON FOR FOLLOWUP: Covid-19 pneumonia. INTERVAL HISTORY: The patient is afebrile. The patient is feeling better today. She is breathing comfortably. Cough has decreased in intensity; however, she is bringing up some sputum, mostly yellowish green. No hemoptysis, though. No nausea, no vomiting, no abdominal pain or any worsening diarrhea. PHYSICAL EXAMINATION: On examination, her blood pressure is 108/70 with a pulse of 73, temperature 97.8. She is 91% on 4 L nasal cannula. GENERAL DESCRIPTION: General description is a middle-aged female lying in bed in no distress. RESPIRATORY SYSTEM: Unlabored breathing. Decreased intensity of breath sounds. HEART: S1, S2. Regular rate and rhythm. ABDOMEN: Soft. No tenderness. LABS: No new labs have been obtained today. DIAGNOSTIC IMPRESSION AND PLAN: Patient with acute COVID-19 pneumonia. Patient clinically responded to the dexamethasone and remdesivir; to continue along with the ascorbic acid and monitor clinical course closely. MMODL / IJN: [id number] /
[2021-05-04 20:33] LABS: Glucose,Whole Blood 209 mg/dL (75-99)
[2021-05-04] MEDS: BENZOCAINE/MENTHOL LOZENG 1 EACH LOZENGE MUCOUS MEM PRN (21:07)
[2021-05-04] MEDS: REMDESIVIR 100 MG in SODIUM CHLORIDE 0.9% 250 ML IVPB SCH (21:09)
[2021-05-05] MEDS: guaiFENesin SYRUP 100MG/5ML 200 MG/10 ML CUP PO PRN ×3 (02:58→21:04)
[2021-05-05] MEDS: ACETAMINOPHEN TAB 325 MG TAB PO PRN (05:43)
[2021-05-05] MEDS: LEVOTHYROXINE 75 MCG TAB PO SCH (05:44)
[2021-05-05 07:03] LABS: Glucose,Whole Blood 140 mg/dL (75-99)
[2021-05-05] MEDS: INSULIN ASPART (NovoLOG) 100 UNIT/ML VIAL SQ SCH ×7 (07:09→21:00)
[2021-05-05] MEDS: NYSTATIN 100,000 UNIT/ML SUSP 500,000 UNIT/5 ML CUP PO SCH ×4 (08:37→21:00)
[2021-05-05] MEDS: MAGNESIUM OXIDE 400 MG TAB PO SCH (08:38)
[2021-05-05] MEDS: ENOXAPARIN 40 MG/0.4 ML SYRINGE SQ SCH (08:38)
[2021-05-05] MEDS: DEXAMETHASONE SOD PHOSPHATE 10 MG/ML 1 ML VIAL IV SCH (08:38)
[2021-05-05] MEDS: ZINC SULFATE 220 MG CAP PO SCH (08:38)
[2021-05-05] MEDS: amLODIPine 5 MG TAB PO SCH (08:38)
[2021-05-05] MEDS: ASCORBIC ACID 500 MG TAB PO SCH (08:38)
[2021-05-05] MEDS: carvediloL 3.125 MG TAB PO SCH ×2 (08:38→21:00)
[2021-05-05] MEDS: TACROLIMUS 1 MG CAP PO SCH ×2 (08:38→20:59)
[2021-05-05] MEDS: ATORVASTATIN 20 MG TAB PO SCH (08:38)
--- NOTE | 2021-05-05 09:27 | P.PN ---
Subjective Patient is seen in follow-up for kidney transplant management. Renal function is stable - creatinine 0.96 as of May 02. Remains on 4 L nasal cannula. No chest pain or shortness of breath at this time. Good urine output. Having loose bowel movements. Hemodynamically stable. Vital signs are stable. General: The patient appeared well nourished and normally developed. HEENT: Head exam is unremarkable. On nasal cannula. LUNGS: Breath sounds decreased. HEART: Rate and Rhythm are regular. ABDOMEN: Soft, no distention. EXTREMITITES: No edema. Objective - Vital Signs Vital signs: Vital Signs Temp 100.8 F H 05/05/21 05:55 Pulse 60 05/05/21 05:55 Resp 17 05/05/21 05:55 BP 129/73 05/05/21 05:55 Pulse Ox 94 L 05/05/21 07:24 Intake & Output 05/04/21 05/05/21 05/05/21 18:59 06:59 18:59 Other: Voiding Method Toilet # Voids 3 3 # Bowel Movements 2 - Labs CBC & Chem 7: 05/02/21 11:38 05/02/21 11:38 Labs: Abnormal Lab Results - Last 24 Hours (Table) 05/04/21 05/04/21 05/04/21 Range/Units 11:33 16:54 20:31 POC Glucose (mg/dL) 264 H 258 H 209 H (75-99) mg/dL 05/05/21 Range/Units 07:01 POC Glucose (mg/dL) 140 H (75-99) mg/dL Assessment and Plan Plan: Assessment: 1. Status post living related renal allograft in 2011. Baseline creatinine near 1. 2. Acute hypoxic respiratory failure secondary to COVID-19 infection. Currently on 4 L nasal cannula. 3. Metabolic acidosis secondary to acute kidney injury. 4. Benign hypertension. Stable. 5. Chronic kidney disease mineral bone disease maintained on calcitriol. 6. Hypomagnesemia from poor intake. Replace. Plan: Maintain steroids and immunosuppression medications. Dose has been decreased. If respiratory status worsens, will hold immunosuppression meds completely. Avoid nephrotoxins. Encouraged oral intake. Follow-up morning labs.
--- NOTE | 2021-05-05 09:29 | P.PN ---
Subjective Patient is pleasant 55-year-old post renal transplant came in with comments of cough or sore throat, odynophagia secondary to sore throat and cough and fever chills. Patient is found to have positive Covid 19. Patient was subsequently transferred here patient was bit hypoxic and was requiring oxygen about 2 L. Patient is still having fevers. Patient the blood sugars are uncontrolled and significantly high because of which I didn't started the patient on any systemic steroids yet my intention is to get a chest x-ray did show significant in filtrate to start her on steroids at that time. Patient does have history of renal transplant kidney function is within normal limits patient is on tacrolimus, mycophenolate with low magnesium which will be replaced. Infectious disease was consulted as well along with nephrology. Patient was comparing of shortness of breath as well 05/03/2021 Patient is seen in follow-up this morning continues to complain of extreme sore throat and irritation and patient is noted to have white patches noted on her upper palate along with tongue and will start nystatin. Hurricaine spray along with Cepacol as needed. Nephrology following and stopping immunotherapies and monitoring closely. Infectious disease is also following for Covid 19 infection prognosis possible bacterial pneumonia. Patient is maintained on IV ceftriaxone and was given a dose of Zithromax. Patient also continues on subcutaneous heparin along with vitamin and zinc supplements and will continue at this time. She and is requiring oxygen at 3-4 L via nasal cannula current oxygen saturation is 89-91%. Patient is also having an intermittent low-grade temp this afternoon of 100.4 and will continue to monitor closely. Patient denies any worsening shortness of breath and mostly complains of mouth pain and extreme sore throat. Patient denies any feelings of throat swelling. Repeat Covid PCR is positive and Covid antibody is nonreactive. Patient is fully vaccinated. Patient states her partner is also experiencing symptoms and currently being tested. 05/04/2021 patient was on 4 L of oxygen. We'll continue to monitor. 05/05/2021 Patient is comparing of the odynophagia probably because of fungal esophagitis patient was started on for, so patient is already on Rocephin, Remdesivir, systemic steroids for Covid. 's blood sugars are well controlled will hold off on amlodipine because of low normal blood pressures will continue to monitor the blood pressure off amlodipine. Patient may need a low-dose of amlodipine. PHYSICAL EXAMINATION: GENERAL: The patient is alert and oriented x3, not in any acute distress. Well developed, well nourished. HEENT: Pupils are round and equally reacting to light. EOMI. No scleral icterus. No conjunctival pallor. Normocephalic, atraumatic. No pharyngeal erythema. No thyromegaly. Upper palate noted with white patches along with patches on the tongue CARDIOVASCULAR: S1 and S2 present. No murmurs, rubs, or gallops. PULMONARY: Chest is clear to auscultation, no wheezing or crackles. ABDOMEN: Soft, nontender, nondistended, normoactive bowel sounds. No palpable organomegaly. MUSCULOSKELETAL: No joint swelling or deformity. EXTREMITIES: No cyanosis, clubbing, or pedal edema. NEUROLOGICAL: Gross neurological examination did not reveal any focal deficits. SKIN: No rashes. Assessment and plan -Sepsis Secondary to possible Covid 19 pneumonia: Patient is presently on Decadron and Covid vitamins. Patient did sugars are well controlled at this time. is presently on 4 L of oxygen she is also being treated for secondary bacterial pneumonia -Odynophagia possibly secondary to fungal esophagitis, and will be started on flucanazole -Type 2 diabetes mellitus: Uncontrolled elevated blood sugars patient was started on her home regimen titration depending on her blood sugars, better controlled today on current regimen and will continue to monitor -Hyperlipidemia -Hypertension well and holding of amlodipine -Hyperthyroidism -Post renal transplant renal transplant was in 2011 continue with the immunosuppressive therapy -DVT prophylaxis: Lovenox Objective - Vital Signs Vital signs: Vital Signs Temp 100.8 F H 05/05/21 05:55 Pulse 60 05/05/21 05:55 Resp 17 05/05/21 05:55 BP 129/73 05/05/21 05:55 Pulse Ox 94 L 05/05/21 07:24 Intake & Output 05/04/21 05/05/21 05/05/21 18:59 06:59 18:59 Other: Voiding Method Toilet # Voids 3 3 # Bowel Movements 2 - Labs CBC & Chem 7: 05/02/21 11:38 05/02/21 11:38 Labs: Abnormal Lab Results - Last 24 Hours (Table) 08/14/21 08/14/21 08/14/21 Range/Units 11:33 16:54 20:31 POC Glucose (mg/dL) 264 H 258 H 209 H (75-99) mg/dL 05/05/21 Range/Units 07:01 POC Glucose (mg/dL) 140 H (75-99) mg/dL
[2021-05-05 11:45] LABS: Glucose,Whole Blood 207 mg/dL (75-99)
[2021-05-05 11:46] LABS: African American GFR (CKD) 59.8 (60.0-200.0); Anion Gap 10.1 mmol/L (4.00-12.00); Carbon Dioxide 20.9 mmol/L (21.6-31.8); Magnesium 2.6 mg/dL (1.5-2.4); Non-African American GFR(CKD) 51.6 (60.0-200.0); Potassium 3.5 mmol/L (3.5-5.5)
[2021-05-05] MEDS: FAMOTIDINE 20 MG TAB PO SCH ×2 (12:37→20:59)
[2021-05-05] MEDS: FLUCONAZOLE 100 MG TAB PO SCH (12:37)
[2021-05-05] MEDS: INSULIN DETEMIR (LEVEMIR) 100 UNIT/ML SYR SQ SCH (12:38)
[2021-05-05] MEDS: FERROUS SULFATE 325 MG TAB PO SCH (12:38)
[2021-05-05 16:53] LABS: Glucose,Whole Blood 216 mg/dL (75-99)
--- NOTE | 2021-05-05 18:45 | PN ---
PROGRESS NOTE DATE OF SERVICE: 05/05/2021 REASON FOR FOLLOWUP: Covid 19 infection. INTERVAL HISTORY: Patient is afebrile. The patient is feeling better. She is breathing comfortably. Denies having any chest pain or shortness of breath. Occasional cough. No abdominal pain. No diarrhea. PHYSICAL EXAMINATION: Her blood pressure is 129/73 with a pulse of 62, temperature 98.8. She is 94% on 4 L nasal cannula. General description is a middle-aged female up in the chair in no distress. Respiratory system: Unlabored breathing with diminished breath sounds. No wheeze. Heart S1, S2. Regular rate and rhythm. Abdomen: Soft, no tenderness. LABS: BUN of 36, creatinine 1.2. DIAGNOSTIC IMPRESSION AND PLAN: Patient with acute COVID-19 pneumonia in this patient who seems to have shown clinical response to the current treatment of dexamethasone, Lovenox, zinc, ascorbic acid, and Remdesivir. We will check inflammatory markers tomorrow and monitor clinical course closely. MMODL / IJN: [id number] /
[2021-05-05 20:28] LABS: Glucose,Whole Blood 199 mg/dL (75-99)
[2021-05-05] MEDS: REMDESIVIR 100 MG in SODIUM CHLORIDE 0.9% 250 ML IVPB SCH (21:00)
[2021-05-06] MEDS: LEVOTHYROXINE 75 MCG TAB PO SCH (05:47)
[2021-05-06] MEDS: REMDESIVIR 100 MG in SODIUM CHLORIDE 0.9% 250 ML IVPB SCH (06:01)
[2021-05-06 07:12] LABS: Glucose,Whole Blood 73 mg/dL (75-99)
[2021-05-06] MEDS: INSULIN ASPART (NovoLOG) 100 UNIT/ML VIAL SQ SCH ×7 (08:07→20:52)
[2021-05-06] MEDS: INSULIN DETEMIR (LEVEMIR) 100 UNIT/ML SYR SQ SCH (08:08)
[2021-05-06] MEDS: NYSTATIN 100,000 UNIT/ML SUSP 500,000 UNIT/5 ML CUP PO SCH ×4 (08:12→20:52)
[2021-05-06] MEDS: DEXAMETHASONE SOD PHOSPHATE 10 MG/ML 1 ML VIAL IV SCH (08:12)
[2021-05-06] MEDS: ENOXAPARIN 40 MG/0.4 ML SYRINGE SQ SCH (08:12)
[2021-05-06] MEDS: FLUCONAZOLE 100 MG TAB PO SCH (08:13)
[2021-05-06] MEDS: FERROUS SULFATE 325 MG TAB PO SCH (08:13)
[2021-05-06] MEDS: FAMOTIDINE 20 MG TAB PO SCH ×2 (08:13→20:15)
[2021-05-06] MEDS: MAGNESIUM OXIDE 400 MG TAB PO SCH (08:13)
[2021-05-06] MEDS: ZINC SULFATE 220 MG CAP PO SCH (08:13)
[2021-05-06] MEDS: carvediloL 3.125 MG TAB PO SCH ×2 (08:13→20:15)
[2021-05-06] MEDS: ATORVASTATIN 20 MG TAB PO SCH (08:13)
[2021-05-06] MEDS: ASCORBIC ACID 500 MG TAB PO SCH (08:13)
[2021-05-06] MEDS: TACROLIMUS 1 MG CAP PO SCH ×2 (08:13→20:15)
[2021-05-06] MEDS: guaiFENesin SYRUP 100MG/5ML 200 MG/10 ML CUP PO PRN ×2 (08:23→20:15)
--- NOTE | 2021-05-06 09:24 | P.PN ---
Subjective Patient is seen in follow-up for kidney transplant management. Renal function is fairly stable - creatinine 1.2 yesterday. Remains on 4 L nasal cannula. No chest pain or shortness of breath at this time. Good urine output. No vomiting or diarrhea. Overall feels better today. Hemodynamically stable. Vital signs are stable. General: The patient appeared well nourished and normally developed. HEENT: Head exam is unremarkable. On nasal cannula. LUNGS: Breath sounds decreased. HEART: Rate and Rhythm are regular. ABDOMEN: Soft, no distention. EXTREMITITES: No edema. Objective - Vital Signs Vital signs: Vital Signs Temp 98.2 F 05/06/21 05:36 Pulse 67 05/06/21 07:41 Resp 14 05/06/21 07:41 BP 129/70 05/06/21 05:36 Pulse Ox 94 L 05/06/21 05:36 Intake & Output 05/05/21 05/06/21 05/06/21 18:59 06:59 18:59 Output Total 5 Balance -5 Output: Urine 5 Other: Voiding Method Toilet Toilet - Labs CBC & Chem 7: 05/02/21 11:38 05/05/21 06:28 Labs: Abnormal Lab Results - Last 24 Hours (Table) 05/05/21 05/05/21 05/05/21 Range/Units 06:28 11:43 16:52 Carbon Dioxide 20.9 L (21.6-31.8) mmol/L BUN 36.0 H (9.0-27.0) mg/dL Est GFR (CKD-EPI)AfAm 59.8 L (60.0-200.0) Est GFR (CKD-EPI)NonAf 51.6 L (60.0-200.0) BUN/Creatinine Ratio 30.00 H (12.00-20.00) Ratio Glucose 127 H (70-110) mg/dL POC Glucose (mg/dL) 207 H 216 H (75-99) mg/dL Calcium 8.0 L (8.7-10.3) mg/dL Magnesium 2.6 H (1.5-2.4) mg/dL 05/05/21 05/06/21 Range/Units 20:26 07:11 Carbon Dioxide (21.6-31.8) mmol/L BUN (9.0-27.0) mg/dL Est GFR (CKD-EPI)AfAm (60.0-200.0) Est GFR (CKD-EPI)NonAf (60.0-200.0) BUN/Creatinine Ratio (12.00-20.00) Ratio Glucose (70-110) mg/dL POC Glucose (mg/dL) 199 H 73 L (75-99) mg/dL Calcium (8.7-10.3) mg/dL Magnesium (1.5-2.4) mg/dL Microbiology - Last 24 Hours (Table) 05/04/21 03:05 Gram Stain - Preliminary Sputum Sputum Culture - Preliminary Assessment and Plan Plan: Assessment: 1. Status post living related renal allograft in 2011. Baseline creatinine near 1. 2. Acute hypoxic respiratory failure secondary to COVID-19 infection. Currently on 4 L nasal cannula. 3. Metabolic acidosis secondary to acute kidney injury and GI losses. 4. Benign hypertension. Stable. 5. Chronic kidney disease mineral bone disease maintained on calcitriol. 6. Hypomagnesemia from poor intake. Replace. Plan: Maintain steroids and immunosuppression medications. Dose has been decreased. If respiratory status worsens, will hold immunosuppression meds completely. Avoid nephrotoxins. Encouraged oral intake. Follow up morning labs.
[2021-05-06 10:13] LABS: African American GFR (CKD) >90 (>60 ml/min/1.73 sqM); Anion Gap 8 mmol/L; Blood Urea Nitrogen 34 mg/dL (7-17); Calcium 8.3 mg/dL (8.4-10.2); Carbon Dioxide 20 mmol/L (22-30); Chloride 110 mmol/L (98-107); Glucose 111 mg/dL (74-99); Magnesium 2.5 mg/dL (1.6-2.3); Non-African American GFR(CKD) 87 (>60 ml/min/1.73 sqM); Potassium 3.3 mmol/L (3.5-5.1); Sodium 138 mmol/L (137-145)
[2021-05-06] MEDS ORDERED: POTASSIUM CHLORIDE ER 20 MEQ TAB.ER PO STA (10:42)
--- NOTE | 2021-05-06 15:31 | P.PN ---
Subjective Progress Note Date: 05/06/21 Patient is pleasant 55-year-old post renal transplant came in with comments of cough or sore throat, odynophagia secondary to sore throat and cough and fever chills. Patient is found to have positive Covid 19. Patient was subsequently transferred here patient was bit hypoxic and was requiring oxygen about 2 L. Patient is still having fevers. Patient the blood sugars are uncontrolled and significantly high because of which I didn't started the patient on any systemic steroids yet my intention is to get a chest x-ray did show significant infiltrate to start her on steroids at that time. Patient does have history of renal transplant kidney function is within normal limits patient is on tacroli mus, mycophenolate with low magnesium which will be replaced. Infectious disease was consulted as well along with nephrology. Patient was comparing of shortness of breath as well 05/03/2021 Patient is seen in follow-up this morning continues to complain of extreme sore throat and irritation and patient is noted to have white patches noted on her upper palate along with tongue and will start nystatin. Hurricaine spray along with Cepacol as needed. Nephrology following and stopping immunotherapies and monitoring closely. Infectious disease is also following for Covid 19 infection prognosis possible bacterial pneumonia. Patient is maintained on IV ceftriaxone and was given a dose of Zithromax. Patient also continues on subcutaneous heparin along with vitamin and zinc supplements and will continue at this time. She and is requiring oxygen at 3-4 L via nasal cannula current oxygen saturation is 89-91%. Patient is also having an intermittent low-grade temp this afternoon of 100.4 and will continue to monitor closely. Patient denies any worsening shortness of breath and mostly complains of mouth pain and extreme sore throat. Patient denies any feelings of throat swelling. Repeat Covid PCR is positive and Covid antibody is nonreactive. Patient is fully vaccinated. Patient states her partner is also experiencing symptoms and currently being tested. 05/04/2021 patient was on 4 L of oxygen. We'll continue to monitor. 05/05/2021 Patient is comparing of the odynophagia probably because of fungal esophagitis patient was started on for, so patient is already on Rocephin, Remdesivir, systemic steroids for Covid. 's blood sugars are well controlled will hold off on amlodipine because of low normal blood pressures will continue to monitor the blood pressure off amlodipine. Patient may need a low-dose of amlodipine. 05/06/2021 Patient is seen in follow-up this morning stating she is feeling much better. Assessment of oral cavity appears much improved and will continue on Diflucan along with nystatin. Patient states her sore throat has markedly improved. Patient continues on 4 L of oxygen via nasal cannula and we'll continue to wean as tolerated. Patient continues on Remdesivir along with dexamethasone and vitamin and zinc supplements and Lovenox and will continue. Infectious disease is following. Review of systems: Constitutional: reports of fatigue, reports low-grade fever, no reports of chills Cardiovascular: No reports of chest pain or palpitations Respiratory: No reports of worsening shortness of breath, reports mouth pain and sore throat GI: No reports of nausea, vomiting, or diarrhea : No reports of dysuria or retention Neurovascular: Reports generalized weakness and body aches All medications have been reviewed PHYSICAL EXAMINATION: GENERAL: The patient is alert and oriented x3, not in any acute distress. Well developed, well nourished. HEENT: Pupils are round and equally reacting to light. EOMI. No scleral icterus. No conjunctival pallor. Normocephalic, atraumatic. No pharyngeal erythema. No thyromegaly. Upper palate noted with white patches along with patches on the tongue CARDIOVASCULAR: S1 and S2 present. No murmurs, rubs, or gallops. PULMONARY: Chest is clear to auscultation, no wheezing or crackles. ABDOMEN: Soft, nontender, nondistended, normoactive bowel sounds. No palpable organomegaly. MUSCULOSKELETAL: No joint swelling or deformity. EXTREMITIES: No cyanosis, clubbing, or pedal edema. NEUROLOGICAL: Gross neurological examination did not reveal any focal deficits. SKIN: No rashes. Assessment and plan -Sepsis Secondary to possible Covid 19 pneumonia: Patient is presently on Decadron and Covid vitamins. Patient blood sugars are well controlled at this time. Patient is presently on 4 L of oxygen she is also being treated for secondary bacterial pneumonia and discussed with nursing staff about weaning FiO2 as tolerated. Will do home O2 assessment and patient may possibly need luis a e oxygen secondary to Covid 19 on discharge -Hypokalemia, currently 3.3 and will replace and repeat labs -Odynophagia possibly secondary to fungal esophagitis, improving. Patient is maintained on nystatin swish along with Diflucan and markedly improved -Type 2 diabetes mellitus: Uncontrolled elevated blood sugars patient was started on her home regimen titration depending on her blood sugars, better controlled today on current regimen and will continue to monitor -Hyperlipidemia -Hypertension, holding amlodipine for now -Hyperthyroidism -Post renal transplant renal transplant was in 2011 continue with the immunosuppressive therapy -DVT prophylaxis: Lovenox -Full code Plan: Continue with close monitoring and weaning FiO2 as tolerated. Patient is on 4 L via nasal cannula with oxygen saturations of 93-94% and will do home O2 eval and may require possible home oxygen secondary to Covid 19. Infectious disease following and patient is continuing on Remdesivir along with dexamethasone, L ovenox, and vitamin and zinc supplements and will continue. Encourage the patient increase activity as tolerated and continue to increase oral intake as well. Nephrology also following. Potassium slightly low at 3.3 and will replace per protocol and repeat labs. Objective - Vital Signs Vital signs: Vital Signs Temp 98.2 F 05/06/21 10:32 Pulse 68 05/06/21 10:32 Resp 18 05/06/21 10:32 BP 144/80 05/06/21 10:32 Pulse Ox 93 L 05/06/21 10:32 Intake & Output 05/05/21 05/06/21 05/06/21 18:59 06:59 18:59 Output Total 5 Balance -5 Output: Urine 5 Other: Voiding Method Toilet Toilet - Labs CBC & Chem 7: 05/02/21 11:38 05/06/21 09:36 Labs: Abnormal Lab Results - Last 24 Hours (Table) 05/05/21 05/05/21 05/05/21 Range/Units 06:28 11:43 16:52 Potassium (3.5-5.1) mmol/L Chloride (98-107) mmol/L Carbon Dioxide 20.9 L (21.6-31.8) mmol/L BUN 36.0 H (9.0-27.0) mg/dL Est GFR (CKD-EPI)AfAm 59.8 L (60.0-200.0) Est GFR (CKD-EPI)NonAf 51.6 L (60.0-200.0) BUN/Creatinine Ratio 30.00 H (12.00-20.00) Ratio Glucose 127 H (70-110) mg/dL POC Glucose (mg/dL) 207 H 216 H (75-99) mg/dL Calcium 8.0 L (8.7-10.3) mg/dL Magnesium 2.6 H (1.5-2.4) mg/dL 05/05/21 05/06/21 05/06/21 Range/Units 20:26 07:11 09:36 Potassium 3.3 L (3.5-5.1) mmol/L Chloride 110 H (98-107) mmol/L Carbon Dioxide 20 L (21.6-31.8) mmol/L BUN 34 H (9.0-27.0) mg/dL Est GFR (CKD-EPI)AfAm (60.0-200.0) Est GFR (CKD-EPI)NonAf (60.0-200.0) BUN/Creatinine Ratio (12.00-20.00) Ratio Glucose 111 H (70-110) mg/dL POC Glucose (mg/dL) 199 H 73 L (75-99) mg/dL Calcium 8.3 L (8.7-10.3) mg/dL Magnesium 2.5 H (1.5-2.4) mg/dL Microbiology - Last 24 Hours (Table) 05/04/21 03:05 Gram Stain - Preliminary Sputum Sputum Culture - Preliminary
[2021-05-06 15:59] LABS: Glucose,Whole Blood 136 mg/dL (75-99)
[2021-05-06 16:35] LABS: Glucose,Whole Blood 319 mg/dL (75-99)
--- NOTE | 2021-05-06 19:34 | PN ---
PROGRESS NOTE DATE OF SERVICE: 05/06/2021 REASON FOR FOLLOWUP: Covid-19 pneumonia. INTERVAL HISTORY: The patient is afebrile. The patient is feeling better. The patient's sore throat has improved. No chest pain or shortness of breath. She did have a cough, though decreased in intensity. No vomiting. No abdominal pain or diarrhea. PHYSICAL EXAMINATION: On examination, blood pressure 143/74 with a pulse of 71, temperature 97.7. She is 94% on 4 L nasal cannula. GENERAL DESCRIPTION: General description is a middle-aged female up in the bed in no distress. RESPIRATORY SYSTEM: Unlabored breathing. Decreased intensity of breath sounds. No wheeze. HEART: S1, S2. Regular rate and rhythm. ABDOMEN: Soft. No tenderness. LABS: BUN of 34, creatinine 0.79. Sputum culture is pending. DIAGNOSTIC IMPRESSION AND PLAN: 1. Patient with acute Covid-19 infection in this patient who has shown overall improvement with the dexamethasone, Lovenox and ascorbic acid and remdesivir. To finish a 5-day course of therapy. 2. Patient did have an elevated procalcitonin with concern for possible secondary bacterial pneumonia; has received about 5 days of Rocephin. Sputum culture is currently pending. Continue supportive care. MMODL / IJN: [id number] /
[2021-05-06 20:24] LABS: Glucose,Whole Blood 277 mg/dL (75-99)
[2021-05-07] MEDS: LEVOTHYROXINE 75 MCG TAB PO SCH (05:37)
[2021-05-07] MEDS: REMDESIVIR 100 MG in SODIUM CHLORIDE 0.9% 250 ML IVPB SCH (05:37)
[2021-05-07 06:54] LABS: Glucose,Whole Blood 165 mg/dL (75-99)
[2021-05-07] MEDS: INSULIN ASPART (NovoLOG) 100 UNIT/ML VIAL SQ SCH ×6 (07:45→18:02)
[2021-05-07] MEDS: FERROUS SULFATE 325 MG TAB PO SCH (07:46)
[2021-05-07] MEDS: ACETAMINOPHEN TAB 325 MG TAB PO PRN (07:46)
[2021-05-07] MEDS: carvediloL 3.125 MG TAB PO SCH (07:46)
[2021-05-07] MEDS: ENOXAPARIN 40 MG/0.4 ML SYRINGE SQ SCH (07:46)
[2021-05-07] MEDS: DEXAMETHASONE SOD PHOSPHATE 10 MG/ML 1 ML VIAL IV SCH (07:46)
[2021-05-07] MEDS: MAGNESIUM OXIDE 400 MG TAB PO SCH (07:46)
[2021-05-07] MEDS: FLUCONAZOLE 100 MG TAB PO SCH (07:46)
[2021-05-07] MEDS: ZINC SULFATE 220 MG CAP PO SCH (07:46)
[2021-05-07] MEDS: ATORVASTATIN 20 MG TAB PO SCH (07:47)
[2021-05-07] MEDS: FAMOTIDINE 20 MG TAB PO SCH (07:47)
[2021-05-07] MEDS: ASCORBIC ACID 500 MG TAB PO SCH (07:47)
[2021-05-07] MEDS: TACROLIMUS 1 MG CAP PO SCH (07:48)
[2021-05-07] MEDS: INSULIN DETEMIR (LEVEMIR) 100 UNIT/ML SYR SQ SCH (07:48)
[2021-05-07] MEDS: NYSTATIN 100,000 UNIT/ML SUSP 500,000 UNIT/5 ML CUP PO SCH ×3 (07:49→18:02)
[2021-05-07] MEDS: guaiFENesin SYRUP 100MG/5ML 200 MG/10 ML CUP PO PRN (08:01)
--- NOTE | 2021-05-07 09:33 | XR ---
EXAMINATION TYPE: XR chest 1V portable DATE OF EXAM: 05/07/2021 Comparison: 05/02/2021 Clinical History: 55-year-old female shortness of breath Findings: Low lung volumes with crowded vascular markings. Heart upper limits of normal in size. Increased bila teral interstitial opacities and left basilar opacity. Impression: 1. Continued hypoventilatory changes. 2. Increased interstitial opacities and focal left basilar opacity. Further clinical correlation need ed as to etiology such as developing CHF, atypical pneumonia, aspiration, interstitial pneumonitis, h ypersensitivity pneumonitis, etc.
--- NOTE | 2021-05-07 09:40 | P.PN ---
Subjective Patient is seen in follow-up for kidney transplant management. Renal function is at baseline. Remains on 4 L nasal cannula. No chest pain or shortness of breath at this time. Good urine output. No vomiting or diarrhea. Hemodynamically stable. No active complaints. Vital signs are stable. General: The patient appeared well nourished and normally developed. HEENT: Head exam is unremarkable. On nasal cannula. LUNGS: Breath sounds decreased. HEART: Rate and Rhythm are regular. ABDOMEN: Soft, no distention. EXTREMITITES: No edema. Objective - Vital Signs Vital signs: Vital Signs Temp 98.2 F 05/07/21 05:50 Pulse 74 05/07/21 05:50 Resp 15 05/07/21 05:50 BP 135/76 05/07/21 05:50 Pulse Ox 95 05/07/21 05:50 Intake & Output 05/06/21 05/07/21 05/07/21 18:59 06:59 18:59 Intake Total 450 890 Balance 450 890 Weight 103.419 kg Intake: Intake, IV Titration 50 250 Amount Remdesivir 100 mg In 250 Sodium Chloride 0.9% 250 ml @ 250 mls/hr IVPB DAILY@0600 WILL[facility] Rx#: [id number] cefTRIAXone 2 gm In 50 Sodium Chloride 0.9% 50 ml @ 100 mls/hr IVPB Q24HR WILL[facility] Rx#:[id number] Oral 400 640 Other: Voiding Method Toilet # Voids 3 - Labs CBC & Chem 7: 05/02/21 11:38 05/06/21 09:36 Labs: Abnormal Lab Results - Last 24 Hours (Table) 05/06/21 05/06/21 05/06/21 Range/Units 09:36 11:38 16:34 Potassium 3.3 L (3.5-5.1) mmol/L Chloride 110 H (98-107) mmol/L Carbon Dioxide 20 L (22-30) mmol/L BUN 34 H (7-17) mg/dL Glucose 111 H (74-99) mg/dL POC Glucose (mg/dL) 136 H 319 H (75-99) mg/dL Calcium 8.3 L (8.4-10.2) mg/dL Magnesium 2.5 H (1.6-2.3) mg/dL 05/06/21 05/07/21 Range/Units 20:22 06:52 Potassium (3.5-5.1) mmol/L Chloride (98-107) mmol/L Carbon Dioxide (22-30) mmol/L BUN (7-17) mg/dL Glucose (74-99) mg/dL POC Glucose (mg/dL) 277 H 165 H (75-99) mg/dL Calcium (8.4-10.2) mg/dL Magnesium (1.6-2.3) mg/dL Microbiology - Last 24 Hours (Table) 05/04/21 03:05 Gram Stain - Preliminary Sputum Sputum Culture - Preliminary Assessment and Plan Plan: Assessment: 1. Status post living related renal allograft in 2011. Baseline creatinine near 1. 2. Acute hypoxic respiratory failure secondary to COVID-19 infection. Currently on 4 L nasal cannula. 3. Metabolic acidosis secondary to acute kidney injury and GI losses. 4. Benign hypertension. Stable. 5. Chronic kidney disease mineral bone disease maintained on calcitriol. 6. Hypomagnesemia from poor intake. Replaced. Resolved. 7. Hypokalemia from poor intake. Replaced. Plan: Maintain steroids and immunosuppression medications. Dose has been decreased. If respiratory status worsens, will hold immunosuppression meds completely. Avoid nephrotoxins. Encouraged oral intake. Follow up morning labs. Decrease oxygen requirements as able to tolerate.
[2021-05-07 11:30] LABS: Glucose,Whole Blood 173 mg/dL (75-99)
[2021-05-07 12:16] LABS: African American GFR (CKD) 97.6 (60.0-200.0); Anion Gap 11.8 mmol/L (4.00-12.00); BUN/Creat Ratio 36.25 Ratio (12.00-20.00); Calcium 8.4 mg/dL (8.7-10.3); Carbon Dioxide 19.2 mmol/L (21.6-31.8); Magnesium 2.1 mg/dL (1.5-2.4); Non-African American GFR(CKD) 84.2 (60.0-200.0); Potassium 4.1 mmol/L (3.5-5.5)
[2021-05-07 17:02] LABS: Glucose,Whole Blood 168 mg/dL (75-99)
[2021-05-07] MEDS: CEFEPIME 2 GM in SODIUM CHLORIDE 0.9% 100 ML IVPB SCH (18:01)
--- NOTE | 2021-05-07 19:46 | PN ---
PROGRESS NOTE DATE OF SERVICE: 05/07/2021 REASON FOR FOLLOWUP: COVID-19 pneumonia. INTERVAL HISTORY: The patient is afebrile. The patient is feeling better. She is breathing slightly comfortably. Denies any chest pain. Cough has decreased intensity. No nausea, no vomiting. No abdominal pain, no diarrhea. PHYSICAL EXAMINATION: Blood pressure 121/60 with a pulse of 62, temperature 98. She is 96% on 2 L nasal cannula. General description is a middle-aged female lying in bed in no distress. Respiratory system: Unlabored breathing, decreased breath sounds at the base, no wheeze. Heart S1, S2. Regular rate and rhythm. Abdomen soft, no tenderness. LABS: BUN of 29, creatinine 0.8. Sputum showing gram-negative. DIAGNOSTIC IMPRESSION AND PLAN: 1. Patient with acute COVID-19 pneumonia. The patient has shown overall improvement. She is on Remdesivir, to continue for five day course of therapy. Slowly wean off her oxygen. 2. Sputum showing a Gram negative. Will wait for the ID sensitivity, cefepime has been added. Continue supportive care. MMODL / IJN: [id number] /
[2021-05-07 20:27] LABS: Glucose,Whole Blood 191 mg/dL (75-99)
[2021-05-08] MEDS: carvediloL 3.125 MG TAB PO SCH ×2 (00:10→08:09)
[2021-05-08] MEDS: FAMOTIDINE 20 MG TAB PO SCH ×2 (00:11→08:08)
[2021-05-08] MEDS: INSULIN ASPART (NovoLOG) 100 UNIT/ML VIAL SQ SCH ×5 (00:11→13:07)
[2021-05-08] MEDS: TACROLIMUS 1 MG CAP PO SCH ×2 (00:12→08:08)
[2021-05-08] MEDS: NYSTATIN 100,000 UNIT/ML SUSP 500,000 UNIT/5 ML CUP PO SCH ×3 (00:13→13:07)
[2021-05-08] MEDS: CEFEPIME 2 GM in SODIUM CHLORIDE 0.9% 100 ML IVPB SCH ×3 (00:13→17:43)
[2021-05-08] MEDS: guaiFENesin SYRUP 100MG/5ML 200 MG/10 ML CUP PO PRN ×2 (00:16→06:17)
--- NOTE | 2021-05-08 03:34 | P.PN ---
Subjective Progress Note Date: 05/07/21 Patient is pleasant 55-year-old post renal transplant came in with comments of cough or sore throat, odynophagia secondary to sore throat and cough and fever chills. Patient is found to have positive Covid 19. Patient was subsequently transferred here patient was bit hypoxic and was requiring oxygen about 2 L. Patient is still having fevers. Patient the blood sugars are uncontrolled and significantly high because of which I didn't started the patient on any systemic steroids yet my intention is to get a chest x-ray did show significant infiltrate to start her on steroids at that time. Patient does have history of renal transplant kidney function is within normal limits patient is on tacroli mus, mycophenolate with low magnesium which will be replaced. Infectious disease was consulted as well along with nephrology. Patient was comparing of shortness of breath as well 05/03/2021 Patient is seen in follow-up this morning continues to complain of extreme sore throat and irritation and patient is noted to have white patches noted on her upper palate along with tongue and will start nystatin. Hurricaine spray along with Cepacol as needed. Nephrology following and stopping immunotherapies and monitoring closely. Infectious disease is also following for Covid 19 infection prognosis possible bacterial pneumonia. Patient is maintained on IV ceftriaxone and was given a dose of Zithromax. Patient also continues on subcutaneous heparin along with vitamin and zinc supplements and will continue at this time. She and is requiring oxygen at 3-4 L via nasal cannula current oxygen saturation is 89-91%. Patient is also having an intermittent low-grade temp this afternoon of 100.4 and will continue to monitor closely. Patient denies any worsening shortness of breath and mostly complains of mouth pain and extreme sore throat. Patient denies any feelings of throat swelling. Repeat Covid PCR is positive and Covid antibody is nonreactive. Patient is fully vaccinated. Patient states her partner is also experiencing symptoms and currently being tested. 05/04/2021 patient was on 4 L of oxygen. We'll continue to monitor. 05/05/2021 Patient is comparing of the odynophagia probably because of fungal esophagitis patient was started on for, so patient is already on Rocephin, Remdesivir, systemic steroids for Covid. 's blood sugars are well controlled will hold off on amlodipine because of low normal blood pressures will continue to monitor the blood pressure off amlodipine. Patient may need a low-dose of amlodipine. 05/06/2021 Patient is seen in follow-up this morning stating she is feeling much better. Assessment of oral cavity appears much improved and will continue on Diflucan along with nystatin. Patient states her sore throat has markedly improved. Patient continues on 4 L of oxygen via nasal cannula and we'll continue to wean as tolerated. Patient continues on Remdesivir along with dexamethasone and vitamin and zinc supplements and Lovenox and will continue. Infectious disease is following. 05/07/2021 Patient is seen and examined in follow up today and continues on 4L via NC and slowly weaning as tolerated. Patient titrated down to 2L and maintaining 95% oxygen saturation. Patient has been increasing activity as tolerated. Patient also being closely monitored by infectious disease. Patient continues on Remdesivir to complete a 5 day course along with dexamethasone, lovenox, vitamin, and zinc supplements. sputum culture preliminary showing gram negative bacilli and will await finalization. Cefepime added. Patient continues with a cough with some phlegm production. Review of systems: Constitutional: reports of fatigue, no reports of fever, no reports of chills Cardiovascular: No reports of chest pain or palpitations Respiratory: No reports of worsening shortness of breath, reports mouth pain and sore throat have improved GI: No reports of nausea, vomiting, or diarrhea : No reports of dysuria or retention Neurovascular: Reports generalized weakness and body aches All medications have been reviewed Active Medications Acetaminophen (Acetaminophen Tab 325 Mg Tab) 650 mg PO Q4HR PRN PRN Reason: Mild Pain or Fever > 100.5 Last Admin: 05/07/21 07:46 Dose: 650 mg Documented by: Ascorbic Acid (Ascorbic Acid 500 Mg Tab) 1,000 mg PO DAILY [facility] Last Admin: 05/07/21 07:47 Dose: 1,000 mg Documented by: Atorvastatin Calcium (Atorvastatin 20 Mg Tab) 20 mg PO DAILY [facility] Last Admin: 05/07/21 07:47 Dose: 20 mg Documented by: Benzocaine (Benzocaine [place] 1 Can) 1 spray TOPICAL QID PRN; Protocol PRN Reason: Skin Irritation Last Admin: 05/04/21 17:31 Dose: 1 spray Documented by: Benzocaine/Menthol (Benzocaine/Menthol Lozeng 1 Each Lozenge) 1 each MUCOUS MEM Q4HR PRN PRN Reason: Sore Throat Last Admin: 05/04/21 21:07 Dose: 1 each Documented by: Calcitriol (Calcitriol 0.25 Mcg Cap) 0.25 mcg PO MOWEFRSA [facility] Last Admin: 05/06/21 08:13 Dose: 0.25 mcg Documented by: Carvedilol (Carvedilol 3.125 Mg Tab) 3.125 mg PO BID [facility] Last Admin: 05/07/21 07:46 Dose: 3.125 mg Documented by: Dexamethasone Sodium Phosphate (Dexamethasone Sod Phosphate 10 Mg/Ml 1 Ml Vial) 6 mg IV DAILY [facility] Last Admin: 05/07/21 07:46 Dose: 6 mg Documented by: Enoxaparin Sodium (Enoxaparin 40 Mg/0.4 Ml Syringe) 40 mg SQ DAILY [facility] Last Admin: 05/07/21 07:46 Dose: 40 mg Documented by: Famotidine (Famotidine 20 Mg Tab) 20 mg PO BID [facility] Last Admin: 05/07/21 07:47 Dose: 20 mg Documented by: Ferrous Sulfate (Ferrous Sulfate 325 Mg Tab) 325 mg PO DAILY [facility] Last Admin: 05/07/21 07:46 Dose: 325 mg Documented by: Fluconazole (Fluconazole 100 Mg Tab) 100 mg PO DAILY [facility] Last Admin: 05/07/21 07:46 Dose: 100 mg Documented by: Guaifenesin (Guaifenesin Syrup 100mg/5ml 200 Mg/10 Ml Cup) 200 mg PO Q6H PRN PRN Reason: Cough Last Admin: 05/07/21 08:01 Dose: 200 mg Documented by: Cefepime HCl 2 gm/ Sodium (Chloride) 100 mls @ 25 mls/hr IVPB Q8HR [facility] Insulin Aspart (Insulin Aspart (Novolog) 100 Unit/Ml Vial) 0 unit SQ ACHS [facility]; Protocol Last Admin: 05/07/21 11:56 Dose: 2 unit Documented by: Insulin Aspart (Insulin Aspart (Novolog) 100 Unit/Ml Vial) 10 unit SQ AC-TID [facility] Last Admin: 05/07/21 11:56 Dose: 10 unit Documented by: Insulin Detemir (Insulin Detemir (Levemir) 100 Unit/Ml Syr) 60 unit SQ DAILY [facility] Last Admin: 05/07/21 07:48 Dose: 60 unit Documented by: Levothyroxine Sodium (Levothyroxine 75 Mcg Tab) 75 mcg PO DAILY@0630 [facility] Last Admin: 05/07/21 05:37 Dose: 75 mcg Documented by: Magnesium Oxide (Magnesium Oxide 400 Mg Tab) 400 mg PO DAILY [facility] Last Admin: 05/07/21 07:46 Dose: 400 mg Documented by: Melatonin (Melatonin 3 Mg Tablet) 3 mg PO HS PRN PRN Reason: Insomnia Miscellaneous Information (Magnesium Replacement Protocol 1 Each Misc) 1 each MISCELLANE DAILY PRN; Protocol PRN Reason: Per Protocol Mycophenolate Mofetil (Mycophenolate Mofetil 500 Mg Tab) 500 mg PO DAILY [facility] Last Admin: 05/07/21 07:49 Dose: 500 mg Documented by: Naloxone HCl (Naloxone 0.4 Mg/Ml 1 Ml Vial) 0.2 mg IV Q2M PRN PRN Reason: Opioid Reversal Nystatin (Nystatin 100,000 Unit/Ml Susp 500,000 Unit/5 Ml Cup) 500,000 unit PO QID [facility] Last Admin: 05/07/21 11:56 Dose: 500,000 unit Documented by: Ondansetron HCl (Ondansetron 4 Mg/2 Ml Vial) 4 mg IVP Q8HR PRN PRN Reason: Nausea And Vomiting Tacrolimus (Tacrolimus 1 Mg Cap) 1 mg PO Q12HR [facility] Last Admin: 05/07/21 07:48 Dose: 1 mg Documented by: Zinc Sulfate (Zinc Sulfate 220 Mg Cap) 220 mg PO DAILY [facility] Last Admin: 05/07/21 07:46 Dose: 220 mg Documented by: PHYSICAL EXAMINATION: GENERAL: The patient is alert and oriented x3, Well developed, well nourished. Temp is 97.7F, pulse is 73, respirations are 20, blood pressure is 154/78, oxygen saturation is 91% on 2 L via nasal cannula. HEENT: Pupils are round and equally reacting to light. EOMI. No scleral icterus. No conjunctival pallor. Normocephalic, atraumatic. No pharyngeal erythema. No thyromegaly. Upper palate noted with white patches along with patches on the tongue have improved CARDIOVASCULAR: S1 and S2 muffled. PULMONARY: diminished breath sounds with some scattered rhonchi noted. cough on exam ABDOMEN: Soft, nontender, nondistended, normoactive bowel sounds. No palpable organomegaly. MUSCULOSKELETAL: No joint swelling or deformity. EXTREMITIES: No cyanosis, clubbing, or pedal edema. NEUROLOGICAL: Gross neurological examination did not reveal any focal deficits. SKIN: No rashes. Assessment and plan -Sepsis, present on admission secondary to Covid 19 pneumonia -possible secondary bacterial pneumonia with sputum cultures showing gram negative bacilli -Hypokalemia -Odynophagia possibly secondary to fungal esophagitis, improving -Type 2 diabetes mellitus: Uncontrolled elevated blood sugars -Hyperlipidemia -Hypertension -Hyperthyroidism -Post renal transplant renal transplant was in 2011 continue with the immunosuppressive therapy -DVT prophylaxis: Lovenox -Full code Plan: Continue with close monitoring and weaning FiO2 as tolerated. Patient is on 2 L via nasal cannula with oxygen saturations of 93-94% and did home O2 eval and will require home oxygen secondary to Covid 19 as oxygen saturation dropped to low 80's with minimal exertion. Infectious disease following and patient is continuing on Remdesivir along with dexamethasone, Lovenox, and vitamin and zinc supplements and will continue. Patient to complete a 5 day course of Remdesivir. Encourage the patient increase activity as tolerated and continue to increase oral intake as well. Nephrology also following. Will repeat am labs and continue to monitor closely. Sputum cultures preliminary showing gram negative bacilli and cefepime added and will await finalized cultures. Prognosis is guarded. Objective - Vital Signs Vital signs: Vital Signs Temp 98.2 F 05/07/21 05:50 Pulse 74 05/07/21 05:50 Resp 15 05/07/21 05:50 BP 135/76 05/07/21 05:50 Pulse Ox 95 05/07/21 05:50 Intake & Output 05/06/21 05/07/21 05/07/21 18:59 06:59 18:59 Intake Total 450 890 Balance 450 890 Weight 103.419 kg Intake: Intake, IV Titration 50 250 Amount Remdesivir 100 mg In 250 Sodium Chloride 0.9% 250 ml @ 250 mls/hr IVPB DAILY@0600 [facility] Rx#: [id number] cefTRIAXone 2 gm In 50 Sodium Chloride 0.9% 50 ml @ 100 mls/hr IVPB Q24HR [facility] Rx#:[id number] Oral 400 640 Other: Voiding Method Toilet # Voids 3 - Labs CBC & Chem 7: 05/02/21 11:38 05/07/21 07:55 Labs: Abnormal Lab Results - Last 24 Hours (Table) 05/06/21 05/06/21 05/06/21 Range/Units 09:36 11:38 16:34 Potassium 3.3 L (3.5-5.1) mmol/L Chloride 110 H (98-107) mmol/L Carbon Dioxide 20 L (22-30) mmol/L BUN 34 H (7-17) mg/dL Glucose 111 H (74-99) mg/dL POC Glucose (mg/dL) 136 H 319 H (75-99) mg/dL Calcium 8.3 L (8.4-10.2) mg/dL Magnesium 2.5 H (1.6-2.3) mg/dL 05/06/21 05/07/21 Range/Units 20:22 06:52 Potassium (3.5-5.1) mmol/L Chloride (98-107) mmol/L Carbon Dioxide (22-30) mmol/L BUN (7-17) mg/dL Glucose (74-99) mg/dL POC Glucose (mg/dL) 277 H 165 H (75-99) mg/dL Calcium (8.4-10.2) mg/dL Magnesium (1.6-2.3) mg/dL Microbiology - Last 24 Hours (Table) 05/04/21 03:05 Gram Stain - Preliminary Sputum Sputum Culture - Preliminary
[2021-05-08] MEDS: LEVOTHYROXINE 75 MCG TAB PO SCH (06:16)
[2021-05-08 07:03] LABS: Glucose,Whole Blood 209 mg/dL (75-99)
[2021-05-08] MEDS: FLUCONAZOLE 100 MG TAB PO SCH (08:08)
[2021-05-08] MEDS: DEXAMETHASONE SOD PHOSPHATE 10 MG/ML 1 ML VIAL IV SCH (08:08)
[2021-05-08] MEDS: ATORVASTATIN 20 MG TAB PO SCH (08:09)
[2021-05-08] MEDS: MAGNESIUM OXIDE 400 MG TAB PO SCH (08:09)
[2021-05-08] MEDS: ACETAMINOPHEN TAB 325 MG TAB PO PRN (08:09)
[2021-05-08] MEDS: ASCORBIC ACID 500 MG TAB PO SCH (08:09)
[2021-05-08] MEDS: ZINC SULFATE 220 MG CAP PO SCH (08:09)
[2021-05-08] MEDS: FERROUS SULFATE 325 MG TAB PO SCH (08:09)
[2021-05-08] MEDS: ENOXAPARIN 40 MG/0.4 ML SYRINGE SQ SCH (08:10)
[2021-05-08] MEDS: INSULIN DETEMIR (LEVEMIR) 100 UNIT/ML SYR SQ SCH (08:21)
[2021-05-08 08:46] LABS: Basophils % (A) 0 %; Eosinophils % (A) 0 %; HCT 41.8 % (34.0-46.0); Hypochromasia Slight; Lymphocytes # (A) 0.7 k/uL (1.0-4.8); Lymphocytes % (A) 10 %; MCH 26.4 pg (25.0-35.0); MCV 85.1 fL (80.0-100.0); Monocytes # (A) 0.4 k/uL (0-1.0); Monocytes % (A) 6 %; Neutrophils # (A) 5.9 k/uL (1.3-7.7); Neutrophils % (A) 81 %; Platelet Count 234 k/uL (150-450); RBC 4.92 m/uL (3.80-5.40); RDW 14.7 % (11.5-15.5); WBC 7.3 k/uL (3.8-10.6)
[2021-05-08 09:01] LABS: African American GFR (CKD) >90 (>60 ml/min/1.73 sqM); Anion Gap 10 mmol/L; Blood Urea Nitrogen 28 mg/dL (7-17); Calcium 8.4 mg/dL (8.4-10.2); Carbon Dioxide 20 mmol/L (22-30); Chloride 107 mmol/L (98-107); Glucose 229 mg/dL (74-99); Non-African American GFR(CKD) >90 (>60 ml/min/1.73 sqM); Potassium 4.1 mmol/L (3.5-5.1); Sodium 137 mmol/L (137-145)
[2021-05-08 10:29] LABS: C Reactive Protein 3.6 mg/dL (<1.0)
[2021-05-08 11:56] LABS: Glucose,Whole Blood 167 mg/dL (75-99)
[2021-05-08 15:24] VITALS: BP 156/75; PULSE 69; RESP 18; TEMP 97.9
--- NOTE | 2021-05-08 16:42 | PN ---
PROGRESS NOTE DATE OF SERVICE: 05/08/2021 REASON FOR FOLLOWUP: COVID-19 pneumonia and concern for secondary bacterial pneumonia. INTERVAL HISTORY: The patient is afebrile. The patient is breathing comfortably. The patient denies having any chest pain or shortness of breath. Cough has decreased in intensity. No abdominal pain or diarrhea. PHYSICAL EXAMINATION: On examination, blood pressure 135/74 with a pulse of 72, temperature 98.2. She is 99% on 2 L nasal cannula. GENERAL DESCRIPTION: General description is middle-aged female lying in bed in no distress. RESPIRATORY SYSTEM: Unlabored breathing. Decreased breath sounds at the bases. No wheeze. HEART: S1, S2. Regular rate and rhythm. ABDOMEN: Soft. No tenderness. LABS: Hemoglobin is , white count , BUN of 28, creatinine 0.66. DIAGNOSTIC IMPRESSION AND PLAN: 1. Patient with acute Covid-19 infection. Patient has completed her remdesivir therapy . 2. Patient bacterial pneumonia. Sputum klebsiella oral Ceftin on discharge with close outpatient followup. MMODL / IJN: [id number] /
[2021-05-08 16:50] LABS: Glucose,Whole Blood 163 mg/dL (75-99)
--- NOTE | 2021-05-09 09:26 | P.DS ---
Providers Date of admission: 05/02/21 14:22 Expected date of discharge: 05/08/21 Attending physician: Judy Manjarrez Consults: 05/02/21 03:37 Consult Physician Routine Consulting Provider: Renetta Koenig Consult Reason/Comments: renal transplant patient Do you want consulting provider notified?: Yes 05/02/21 06:39 Consult Physician Urgent Consulting Provider: Anneliese Ni Consult Reason/Comments: covid + Do you want consulting provider notified?: Yes Primary care physician: Stated None Hospital Course: Final diagnosis -Sepsis, present on admission secondary to Covid 19 pneumonia -possible secondary bacterial pneumonia with sputum cultures showing Klebsiella pneumonia and E. coli -Hypokalemia -Odynophagia possibly secondary to fungal esophagitis, improving -Type 2 diabetes mellitus: Uncontrolled elevated blood sugars -Hyperlipidemia -Hypertension -Hyperthyroidism -Post renal transplant renal transplant was in 2011 continue with the immunosuppressive therapy -DVT prophylaxis -Full code Discharge disposition Patient is being discharged in a stable condition with guarded prognosis to home. Patient will follow-up with Xenia Rich in [place] in the [facility] setting upon discharge. Patient is to also follow-up with Dr. Da Silva nephrology in one week in the outpatient setting. Total time taken is greater than 35 minutes. Hospital course This is a 55-year-old female who was recently admitted with cough, shortness of breath, sore throat along with fever and chills and is being closely monitored. and was found to be COVID-19 positive with possible bacterial pneumonia as well. Patient was given Remdesivir five-day treatment along with dexamethasone, Lovenox, vitamin and zinc supplements and will continue with dexamethasone 6 mg for the next 5 days along with vitamin and zinc supplements to complete the course. Patient's sputum culture finalized showing Klebsiella pneumonia along with E. coli and will continue on oral Ceftin 500 mg twice daily for the next one week to complete the course. Patient also being followed closely by nephrology as she is a renal transplant patient and immunotherapies have been decreased and patient will follow closely with Dr. Da Silva in the outpatient setting in 1 week. Patient requiring oxygen secondary to COVID-19 and maintained on 2 L via nasal cannula. Oxygen saturation dipped down to 86% on room air at rest and was set up with oxygen for discharge. Patient states she was seeing Dr. Almeida in [place] and then his PA Karime Stewart and is now new to [facility] in [place]. Currently no reports of chest pain, worsening shortness of breath, or palpitations. Patient is afebrile. No reports of nausea or vomiting and patient is tolerating diet. Patient will be discharged home today. On exam vital signs are stable. Cardio S1, S2 are muffled. Respiratory system shows diminished breath sounds at the bases with no wheezing or rhonchi noted. Abdomen is soft and nontender. Nervous system shows no focal deficits. Please refer to medication reconciliation sheet for a list of medications. Patient Condition at Discharge: Stable Plan - Discharge Summary Discharge Rx Participant: No New Discharge Prescriptions: New Cefuroxime Axetil [Ceftin] 500 mg PO BID 7 Days #14 tab Dexamethasone 6 mg PO DAILY 5 Days #5 tablet Fluconazole [Diflucan] 100 mg PO DAILY 5 Days #5 tab Zinc Sulfate [Orazinc] 220 mg PO DAILY #30 cap Famotidine [Pepcid] 20 mg PO BID #60 tab Acetaminophen Tab [Tylenol] 650 mg PO Q4HR PRN #30 tab PRN Reason: Mild Pain Or Fever > 100.5 Ascorbic Acid [Vitamin C] 1,000 mg PO DAILY 30 Days #60 tab Nystatin 100,000 Unit/ml Susp [Mycostatin Oral Susp] 500,000 unit PO QID 5 Days #100 ml guaiFENesin SYRUP 100MG/5ML [Robitussin] 200 mg PO Q6H PRN #100 ml PRN Reason: Cough Continue Levothyroxine Sodium [Synthroid] 75 mcg PO DAILY Ferrous Sulfate [Iron (65 MG Elemental)] 325 mg PO DAILY Allopurinol [Zyloprim] 100 mg PO Q48H calcitrioL [Calcitriol] 0.25 mcg PO MOWEFRSA Carvedilol [Coreg] 3.125 mg PO BID Magnesium Oxide 400 mg PO DAILY Insulin Glargine,Hum.rec.anlog [Toujeo Solostar] 60 units SQ DAILY Insulin Aspart [NovoLOG Flexpen] 10 units SQ AC-TID Atorvastatin [Lipitor] 20 mg PO DAILY Potassium Chloride 10 meq PO DAILY Furosemide [Lasix] 20 mg PO Q48H Insulin Aspart [NovoLOG Flexpen] See Protocol SQ AC-TID Changed Mycophenolate Mofetil [Cellcept] 500 mg PO DAILY #0 Tacrolimus [Prograf] 1 mg PO Q12H #0 Discontinued amLODIPine [Norvasc] 5 mg PO DAILY Discharge Medication List Allopurinol [Zyloprim] 100 mg PO Q48H 05/02/21 [History] Atorvastatin [Lipitor] 20 mg PO DAILY 05/02/21 [History] Carvedilol [Coreg] 3.125 mg PO BID 05/02/21 [History] Ferrous Sulfate [Iron (65 MG Elemental)] 325 mg PO DAILY 05/02/21 [History] Furosemide [Lasix] 20 mg PO Q48H 05/02/21 [History] Insulin Aspart [NovoLOG Flexpen] 10 units SQ AC-TID 05/02/21 [History] Insulin Aspart [NovoLOG Flexpen] See Protocol SQ AC-TID 05/02/21 [History] Insulin Glargine,Hum.rec.anlog [Toujeo Solostar] 60 units SQ DAILY 05/02/21 [History] Levothyroxine Sodium [Synthroid] 75 mcg PO DAILY 05/02/21 [History] Magnesium Oxide 400 mg PO DAILY 05/02/21 [History] Potassium Chloride 10 meq PO DAILY 05/02/21 [History] calcitrioL [Calcitriol] 0.25 mcg PO MOWEFRSA 05/02/21 [History] Acetaminophen Tab [Tylenol] 650 mg PO Q4HR PRN #30 tab 05/08/21 [Rx] Ascorbic Acid [Vitamin C] 1,000 mg PO DAILY 30 Days #60 tab 05/08/21 [Rx] Cefuroxime Axetil [Ceftin] 500 mg PO BID 7 Days #14 tab 05/08/21 [Rx] Dexamethasone 6 mg PO DAILY 5 Days #5 tablet 05/08/21 [Rx] Famotidine [Pepcid] 20 mg PO BID #60 tab 05/08/21 [Rx] Fluconazole [Diflucan] 100 mg PO DAILY 5 Days #5 tab 05/08/21 [Rx] Mycophenolate Mofetil [Cellcept] 500 mg PO DAILY #0 05/08/21 [Rx] Nystatin 100,000 Unit/ml Susp [Mycostatin Oral Susp] 500,000 unit PO QID 5 Days #100 ml 05/08/21 [Rx] Tacrolimus [Prograf] 1 mg PO Q12H #0 05/08/21 [Rx] Zinc Sulfate [Orazinc] 220 mg PO DAILY #30 cap 05/08/21 [Rx] guaiFENesin SYRUP 100MG/5ML [Robitussin] 200 mg PO Q6H PRN #100 ml 05/08/21 [Rx] Follow up Appointment(s)/Referral(s): [facility] [NON-STAFF] - As Needed [facility] [NON-STAFF] - As Needed (oxygen) Aaron Da Silva DO [STAFF PHYSICIAN] - 1 Week Patient Instructions/Handouts: Coronavirus Disease 2019 (COVID-19) Activity/Diet/Wound Care/Special Instructions: Activity Limited until follow-up Follow-up with primary care provider Xenia Rich in [place] Follow-up with nephrology Dr. Da Silva in one week Continue to monitor blood sugars closely and keep a diary for primary care follow-up Continue with medications as prescribed Continue antibiotics and dexamethasone until finished Continue to monitor for fever and treat with Tylenol Encourage fluids and rest Continue to wear your mask Continue to isolate 14 days from symptom onset date Continue with oxygen and wean as tolerated Continue renal diet Discharge Disposition: HOME WITH HOME HEALTH SERVICES
== END 2021-05-08 18:36 | disposition home health service (06) | DRG 871 ==
LOC: 4SSUR 05-02 02:10 → OBSVTOIN 05-02 14:22
PROVIDERS: ADMIT Hospitalist; ATTEND Hospitalist
PROC: XW033E5 Introduction of Remdesivir Anti-infective into Peripheral Vein, Percutaneous Approach, New Technology Group 5 (ICD-10-PCS; principal; 2021-05-02)
PROC: 05HA33Z Insertion of Infusion Device into Left Brachial Vein, Percutaneous Approach (ICD-10-PCS; 2021-05-02)
DX: A41.89 Other specified sepsis (principal); U07.1 COVID-19; J12.82 Pneumonia due to coronavirus disease 2019; J15.0 Pneumonia due to Klebsiella pneumoniae; J96.01 Acute respiratory failure with hypoxia; J15.5 Pneumonia due to Escherichia coli; N25.81 Secondary hyperparathyroidism of renal origin; D84.9 Immunodeficiency, unspecified; Z68.41 Body mass index [BMI] 40.0-44.9, adult; Z94.0 Kidney transplant status; E87.2 Acidosis; N17.9 Acute kidney failure, unspecified; E11.65 Type 2 diabetes mellitus with hyperglycemia; R13.10 Dysphagia, unspecified; E66.9 Obesity, unspecified; I10 Essential (primary) hypertension; E05.90 Thyrotoxicosis, unspecified without thyrotoxic crisis or storm; E11.22 Type 2 diabetes mellitus with diabetic chronic kidney disease; E83.42 Hypomagnesemia; E87.6 Hypokalemia; I12.9 Hypertensive chronic kidney disease with stage 1 through stage 4 chronic kidney disease, or unspecified chronic kidney disease; K20.80 Other esophagitis without bleeding; M89.8X9 Other specified disorders of bone, unspecified site; E78.5 Hyperlipidemia, unspecified; E03.9 Hypothyroidism, unspecified; Z88.1 Allergy status to other antibiotic agents; Z79.899 Other long term (current) drug therapy; Z79.890 Hormone replacement therapy; Z79.4 Long term (current) use of insulin
CPT/HCPCS: 36410; 71045; 76937; 80048; 80053; 83036; 83615; 83735; 84145; 85025; 85379; 86140; 86769; 87070; 87077; 87186; 87205; 93005; 94760

== ENCOUNTER 2022-09-24 12:35 | Observation (INO) | payer MEDICARE ==
[2022-09-24] MEDS ORDERED: PROCHLORPERAZINE INJ 10 MG/2 ML VIAL IVP STA (12:42)
--- NOTE | 2022-09-24 12:55 | ED ---
Abdominal Pain HPI - General Stated Complaint: acute cholecystitis Time Seen by Provider: 09/24/22 12:35 Source: patient, EMS, RN notes reviewed, old records reviewed Mode of arrival: EMS - History of Present Illness Initial Comments: 57-year-old female transferred from [facility] with the diagnosis of acute cholecystitis. Patient states she had the onset at 4 AM this morning of severe right upper quadrant pain with nausea. She was worked up at that facility including ultrasound a CAT scan but did show evidence of dilated gallbladder with evidence of calcification in the neck or proximal duct. Also evidence of stranding. White blood cell count was within normal limits she denies any fevers chills or sweats just severe pain and intractable nausea in spite of 3 rounds of Zofran. She had a similar episode approximately 3 weeks ago. This did resolve she was at that time placed on a low-fat type diet. No other current complaints. She does have a history of hypertension chronic renal insufficiency and anemia. MD Complaint: abdominal pain - Related Data Home Medications Medication Instructions Recorded Confirmed Atorvastatin [Lipitor] 20 mg PO DAILY 05/02/21 09/24/22 Furosemide [Lasix] 20 mg PO DAILY 05/02/21 09/24/22 Insulin Aspart [NovoLOG Flexpen] See Protocol SQ AC-TID 05/02/21 09/24/22 Levothyroxine Sodium [Synthroid] 75 mcg PO DAILY 05/02/21 09/24/22 Magnesium Oxide 400 mg PO DAILY 05/02/21 09/24/22 Potassium Chloride [Potassium 10 meq PO DAILY 05/02/21 09/24/22 Chloride ER] Albuterol Sulfate [Albuterol 2 puff PO RT-Q6H PRN 09/24/22 09/24/22 Sulfate Hfa] Apixaban [Eliquis] 5 mg PO BID 09/24/22 09/24/22 Aspirin EC [Ecotrin Low Dose] 81 mg PO DAILY 09/24/22 09/24/22 Insulin Detemir [Levemir Flextouch 20 units SQ HS 09/24/22 09/24/22 Pen] Ondansetron [Zofran] 4 mg PO Q8HR PRN 09/24/22 09/24/22 Tacrolimus [Prograf] 2 mg PO BID 09/24/22 09/24/22 carvediloL [Coreg] 6.25 mg PO BID 09/24/22 09/24/22 mycophenolate mofetiL [Cellcept] 1,500 mg PO BID 09/24/22 09/24/22 predniSONE 5 mg PO DAILY 09/24/22 09/24/22 Allergies Allergy/AdvReac Type Severity Reaction Status Date / Time clindamycin Allergy Rash/Hives Verified 09/24/22 15:47 Review of Systems ROS Statement: Those systems with pertinent positive or pertinent negative responses have been documented in the HPI. ROS Other: All systems not noted in ROS Statement are negative. Past Medical History Past Medical History: Diabetes Mellitus, Hyperlipidemia, Hypertension, Thyroid Disorder History of Any Multi-Drug Resistant Organisms: None Reported Additional Past Surgical History / Comment(s): kidney transplant in 2011 Past Anesthesia/Blood Transfusion Reactions: No Reported Reaction Past Psychological History: No Psychological Hx Reported Smoking Status: Never smoker Past Alcohol Use History: None Reported Past Drug Use History: None Reported General Exam - General Exam Comments Initial Comments: This is a well-developed well-nourished awake alert oriented 4 female she is actively retching General appearance: anxious, in distress Head exam: Present: atraumatic, normocephalic, normal inspection Eye exam: Present: normal appearance, PERRL, EOMI. Absent: scleral icterus, conjunctival injection, periorbital swelling ENT exam: Present: mucous membranes dry Neck exam: Present: normal inspection, full ROM. Absent: tenderness, meningismus, lymphadenopathy Respiratory exam: Present: normal lung sounds bilaterally. Absent: respiratory distress, wheezes, rales, rhonchi, stridor Cardiovascular Exam: Present: regular rate, normal rhythm, normal heart sounds. Absent: systolic murmur, diastolic murmur, rubs, gallop, clicks GI/Abdominal exam: Present: soft, tenderness, normal bowel sounds. Absent: distended, guarding, rebound, rigid, bruit Rectal exam: Present: deferred Extremities exam: Present: normal inspection, full ROM, normal capillary refill. Absent: tenderness, pedal edema, joint swelling, calf tenderness Back exam: Present: normal inspection Neurological exam: Present: alert, oriented X3, CN II-XII intact Psychiatric exam: Present: normal affect, normal mood Skin exam: Present: warm, dry, intact, normal color. Absent: rash Course Vital Signs 09/24/22 09/24/22 12:48 13:01 Temperature 98.0 F Pulse Rate 66 61 Respiratory 22 22 Rate Blood Pressure 148/100 157/69 O2 Sat by Pulse 95 95 Oximetry Medical Decision Making - Medical Decision Making I did review all the materials from the sending facility I did discuss case with Dr. Cope and with Dr. Russell patient will be admitted for medicine and surgery auscultation Was pt. sent in by a medical professional or institution? @ Patient was sent from [facility] [by , [place], ASSISTANT SCIENTIST, urgent care, hospital, or retirement] Did you speak to anyone other than the patient for history? @ Doctor at [facility]-[EMS, parent, family, police, friend?] Did you review nursing and triage notes? @ Yes I agree-[agree or disagree, why?] Were old charts reviewed? @ -Those sent from the other facility [outside hosp., previous admissions, EMS record, old EKG, old radiological studies, urgent care reports/EKGs, retirement records?] Differential Diagnosis? @ Abdominal pain cholecystitis other etiologies considered-[chest pain, altered mental status abdominal pain women, abdominal pain men, vaginal bleeding, weakness, fever, dyspnea, syncope, headache, dizziness, GI bleed, back pain, seizure] EKG interpreted by me (3pts min.)? @ Yes as above -[none] X-rays interpreted by me (1pt min.)? @ Did review the images simply other facility occluding CT -[none] CT interpreted by me (1pt min.)? @ -[none] U/S interpreted by me (1pt. min.)? @ -[none] What testing was considered but not performed? (CT, X-rays, U/S, labs)? Why? @ Already done [CT, X-rays, U/S, labs? Why?] What meds were considered but not given? Why? @ -[none] Did you discuss the management of the patient with other professionals? @ Dr. Cope and Dr. Russell-[professionals i.e. , PA, ASSISTANT SCIENTIST, Lab, RT, Psych Nurse, Computer Numerical Control Programmer, Assembler Cards And Announcements, Teacher, Puttying And Calking Supervisor, counseling case manager? Give summary] Did you reconcile home meds? @ -[none] Was smoking cessation discussed for >3mins.? @ -[none] Was critical care preformed (if so, how long)? @ -[none] Were there social determinants of health that impacted care today? How? (Homelessness, low income, unemployed, alcoholism, drug addiction, transportati on, low edu. Level, literacy, decrease access to med. care, halfway, rehab)? @ Not applicable-[Homelessness, low income, unemployed, alcoholism, drug addiction, transportation, low edu. Level, literacy, decrease access to med. care, halfway, rehab?] Was there de-escalation of care discussed even if they declined? (Discuss DNR or withdrawal of care, Hospice)? @ No-[Discuss DNR or withdrawal of care, Hospice?] What co-morbidities impacted this encounter? (DM, HTN, Smoking, COPD, CAD, Cancer, CVA, Hep., AIDS, mental health diagnosis, sleep apnea, morbid obesity)? @ -[DM, HTN, Smoking, COPD, CAD, Cancer, CVA, Hep., AIDS, mental health diagnosis, sleep apnea, morbid obesity?] Was patient admitted / discharged? @ Patient was admitted to medical service for surgical consultation-[hospital course] Undiagnosed new problem with uncertain prognosis? @ -[none] Drug Therapy requiring intensive monitoring for toxicity (Heparin, Nitro, Insulin, Cardizem)? @ -[none] Were any procedures done? @ -[none] Diagnosis/symptom? @ Acute cholecystitis, abdominal pain-[default] Acute, or Chronic, or Acute on Chronic? @ Acute-[default] Uncomplicated (without systemic symptoms) or Complicated (systemic symptoms)? @ -[default] Side effects of treatment? @ -[none] Exacerbation, Progression, or Severe Exacerbation] @ -[no] Poses a threat to life or bodily function? @ Potential of left untreated [no] - Lab Data Result diagrams: 09/24/22 16:56 09/24/22 16:56 Lab Results 09/24/22 09/24/22 09/24/22 Range/Units 13:12 16:56 16:56 WBC (3.8-10.6) k/uL RBC (3.80-5.40) m/uL Hgb (11.4-16.0) gm/dL Hct (34.0-46.0) % MCV (80.0-100.0) fL MCH (25.0-35.0) pg MCHC (31.0-37.0) g/dL RDW (11.5-15.5) % Plt Count (150-450) k/uL MPV Neutrophils % % Lymphocytes % % Monocytes % % Eosinophils % % Basophils % % Neutrophils # (1.3-7.7) k/uL Lymphocytes # (1.0-4.8) k/uL Monocytes # (0-1.0) k/uL Eosinophils # (0-0.7) k/uL Basophils # (0-0.2) k/uL Hypochromasia Microcytosis Sodium 142 (137-145) mmol/L Potassium 5.2 H (3.5-5.1) mmol/L Chloride 107 (98-107) mmol/L Carbon Dioxide 25 (22-30) mmol/L Anion Gap 10 mmol/L BUN 28 H (7-17) mg/dL Creatinine 1.04 (0.52-1.04) mg/dL Est GFR (CKD-EPI)AfAm 70 (>60 ml/min/1.73 sqM) Est GFR (CKD-EPI)NonAf 61 (>60 ml/min/1.73 sqM) Glucose 111 H (74-99) mg/dL POC Glucose (mg/dL) 101 (70-110) mg/dL POC Glu Drug Clerk ID Iman Chiang Calcium 9.1 (8.4-10.2) mg/dL Magnesium 2.0 (1.6-2.3) mg/dL Total Bilirubin 0.6 (0.2-1.3) mg/dL AST 27 (14-36) U/L ALT 16 (4-34) U/L Alkaline Phosphatase 99 (38-126) U/L Total Protein 7.4 (6.3-8.2) g/dL Albumin 4.2 (3.5-5.0) g/dL Urine Color Yellow Urine Appearance Clear (Clear) Urine pH 5.0 (5.0-8.0) Ur Specific Lorenzo 1.021 (1.001-1.035) Urine Protein Negative (Negative) Urine Glucose (UA) Negative (Negative) Urine Ketones Negative (Negative) Urine Blood Trace H (Negative) Urine Nitrite Negative (Negative) Urine Bilirubin Negative (Negative) Urine Urobilinogen <2.0 (<2.0) mg/dL Ur Leukocyte Esterase Small H (Negative) Urine RBC 3 (0-5) /hpf Urine WBC 2 (0-5) /hpf Ur Squamous Epith Cells 2 (0-4) /hpf Calcium Oxalate Crystal Occasional H (None) /hpf Urine Bacteria Moderate H (None) /hpf Urine Mucus Rare H (None) /hpf 09/24/22 09/24/22 Range/Units 16:56 17:09 WBC 10.0 (3.8-10.6) k/uL RBC 4.58 (3.80-5.40) m/uL Hgb 10.6 L (11.4-16.0) gm/dL Hct 35.9 (34.0-46.0) % MCV 78.4 L (80.0-100.0) fL MCH 23.2 L (25.0-35.0) pg MCHC 29.6 L (31.0-37.0) g/dL RDW 15.9 H (11.5-15.5) % Plt Count 218 (150-450) k/uL MPV 8.0 Neutrophils % 84 % Lymphocytes % 10 % Monocytes % 4 % Eosinophils % 1 % Basophils % 0 % Neutrophils # 8.4 H (1.3-7.7) k/uL Lymphocytes # 1.0 (1.0-4.8) k/uL Monocytes # 0.4 (0-1.0) k/uL Eosinophils # 0.1 (0-0.7) k/uL Basophils # 0.0 (0-0.2) k/uL Hypochromasia Marked Microcytosis Slight Sodium (137-145) mmol/L Potassium (3.5-5.1) mmol/L Chloride (98-107) mmol/L Carbon Dioxide (22-30) mmol/L Anion Gap mmol/L BUN (7-17) mg/dL Creatinine (0.52-1.04) mg/dL Est GFR (CKD-EPI)AfAm (>60 ml/min/1.73 sqM) Est GFR (CKD-EPI)NonAf (>60 ml/min/1.73 sqM) Glucose (74-99) mg/dL POC Glucose (mg/dL) 108 (70-110) mg/dL POC Glu Drug Clerk ID Wagester, Iman Calcium (8.4-10.2) mg/dL Magnesium (1.6-2.3) mg/dL Total Bilirubin (0.2-1.3) mg/dL AST (14-36) U/L ALT (4-34) U/L Alkaline Phosphatase (38-126) U/L Total Protein (6.3-8.2) g/dL Albumin (3.5-5.0) g/dL Urine Color Urine Appearance (Clear) Urine pH (5.0-8.0) Ur Specific Lorenzo (1.001-1.035) Urine Protein (Negative) Urine Glucose (UA) (Negative) Urine Ketones (Negative) Urine Blood (Negative) Urine Nitrite (Negative) Urine Bilirubin (Negative) Urine Urobilinogen (<2.0) mg/dL Ur Leukocyte Esterase (Negative) Urine RBC (0-5) /hpf Urine WBC (0-5) /hpf Ur Squamous Epith Cells (0-4) /hpf Calcium Oxalate Crystal (None) /hpf Urine Bacteria (None) /hpf Urine Mucus (None) /hpf - EKG Data -: EKG Interpreted by Me EKG Comments: EKG done at the time of arrival to the sinus rhythm a 65 appear interval 153 QRS duration 8070 QT since QTC 407/419 low-voltage minimal voltage criteria for LVH poor R-wave progression this correlates with EKG done at the other facility done earlier today. Disposition Clinical Impression: Acute cholecystitis, Abdominal pain, Nausea & vomiting Disposition: ADMITTED IP TO THIS [facility] Condition: Fair Referrals: Nonstaff,Physician [REFERRING] - 1-2 days Decision Date: 09/24/22 Decision Time: 16:00
[2022-09-24 13:14] LABS: Glucose,Whole Blood 101 mg/dL (70-110)
[2022-09-24] MEDS ORDERED: LEVOFLOXACIN 500MG-D5W PMX 500 MG in DEXTROSE/WATER 1 100ML.BAG IVPB STA (15:51)
[2022-09-24] MEDS ORDERED: MORPHINE SULFATE 2 MG/ML SYRINGE IVP PRN (15:57)
[2022-09-24] MEDS ORDERED: HEPARIN SODIUM 1,000 UN/ML (10ML VL) MISCELLANE ONE (16:18)
[2022-09-24] MEDS ORDERED: SODIUM CHLORIDE 0.9% 1,000 ML IV STA (16:22)
[2022-09-24] MEDS ORDERED: hydrALAZINE HCL 20 MG/ML 1 ML VIAL IVP PRN (16:24)
[2022-09-24] MEDS ORDERED: ALBUTEROL NEBULIZED 2.5 MG/3 ML INHALATION PRN (16:25)
[2022-09-24] MEDS ORDERED: DEXTROSE 50% SYRINGE 50 ML IVP PRN ×2 (16:31)
[2022-09-24] MEDS ORDERED: IPRATROPIUM-ALBUTEROL 3 ML NEB INHALATION PRN (16:32)
--- NOTE | 2022-09-24 16:54 | P.HPIM ---
History of Present Illness H&P Date: 09/24/22 Chief Complaint: Abdominal pain This is a pleasant 57-year-old female presents to [facility] with abdominal pain. Patient was transferred from the [facility] area. Patient states that she woke up this morning, around 4 AM, with intractable epigastric and right upper quadrant pain. Patient states that she felt very bloated and nauseated. Patient tried to have a bowel movement so it would improve her pain however it did not. After an hour so of unresolving pain, patient decided to go to the hospital for further assessment. At the hospital patient had a CT of the abdomen ordered and revealed cholecystitis. Patient was transferred to [facility] for surgery assessment. 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 At this time, patient continues to have abdominal pain and nausea. Patient describes the abdominal pain as a strong pressure 8 out of 10. Pain does not radiate. Patient denies chest pain short ness of breath. Patient further denies fever or chills. Review of Systems A 14 point review systems was assessed patient was only positive for those discussed HPI Past Medical History Past Medical History: Diabetes Mellitus, Hyperlipidemia, Hypertension, Thyroid Disorder History of Any Multi-Drug Resistant Organisms: None Reported Additional Past Surgical History / Comment(s): kidney transplant in 2011 Past Anesthesia/Blood Transfusion Reactions: No Reported Reaction Past Psychological History: No Psychological Hx Reported Smoking Status: Never smoker Past Alcohol Use History: None Reported Past Drug Use History: None Reported Medications and Allergies Home Medications Medication Instructions Recorded Confirmed Type Atorvastatin [Lipitor] 20 mg PO DAILY 05/02/21 09/24/22 History Furosemide [Lasix] 20 mg PO DAILY 05/02/21 09/24/22 History Insulin Aspart [NovoLOG Flexpen] See Protocol SQ AC-TID 05/02/21 09/24/22 History Levothyroxine Sodium [Synthroid] 75 mcg PO DAILY 05/02/21 09/24/22 History Magnesium Oxide 400 mg PO DAILY 05/02/21 09/24/22 History Potassium Chloride [Potassium 10 meq PO DAILY 05/02/21 09/24/22 History Chloride ER] Albuterol Sulfate [Albuterol 2 puff PO RT-Q6H PRN 09/24/22 09/24/22 History Sulfate Hfa] Apixaban [Eliquis] 5 mg PO BID 09/24/22 09/24/22 History Aspirin EC [Ecotrin Low Dose] 81 mg PO DAILY 09/24/22 09/24/22 History Insulin Detemir [Levemir Flextouch 20 units SQ HS 09/24/22 09/24/22 History Pen] Ondansetron [Zofran] 4 mg PO Q8HR PRN 09/24/22 09/24/22 History Tacrolimus [Prograf] 2 mg PO BID 09/24/22 09/24/22 History carvediloL [Coreg] 6.25 mg PO BID 09/24/22 09/24/22 History mycophenolate mofetiL [Cellcept] 1,500 mg PO BID 09/24/22 09/24/22 History predniSONE 5 mg PO DAILY 09/24/22 09/24/22 History Allergies Allergy/AdvReac Type Severity Reaction Status Date / Time clindamycin Allergy Rash/Hives Verified 09/24/22 15:47 Physical Exam Osteopathic Statement: *. No significant issues noted on an osteopathic structural exam other than those noted in the History and Physical/Consult. Vitals: Vital Signs Temp Pulse Resp BP Pulse Ox 09/24/22 13:01 61 22 157/69 95 09/24/22 12:48 98.0 F 66 22 148/100 95 Intake and Output 09/24/22 09/24/22 09/24/22 06:59 14:59 22:59 Other: Weight 102.058 kg General: [non toxic], [no distress], [appears at stated age] Derm: [warm], [dry] Head: [atraumatic], [normocephalic], [symmetric] Eyes: [EOMI], [no lid lag], [anicteric sclera] Mouth: [no lip lesion], [mucus membranes moist] Cardiovascular: [S1S2 reg], [no murmur], [positive posterior tibial pulse bilateral], Lungs: [CTA bilateral], [no rhonchi, no rales] , [no accessory muscle use] Abdominal: [soft], [ tender to palpation with rebound], [no guarding], [no appreciable organomegaly] Ext: [no gross muscle atrophy], [no edema], [no contractures] Neuro: [ CN II-XI grossly intact], [no focal neuro deficits] Psych: [Alert], [oriented], [appropriate affect] Thrombosis Risk Factor Assmnt - DVT/VTE Prophylaxis DVT/VTE Prophylaxis: Pharmacologic Prophylaxis ordered Assessment and Plan Assessment: 1. Abdominal pain secondary to cholecystitis Consult general surgery IV fluids IV antibiotics Levaquin and Flagyl Obtain cultures Pain control morphine when necessary Vitals every 4 hours antiemetic Zofran when necessary admit to telemetry 2. History of atrial fibrillation with DVT Discontinue Eliquis and add IV heparin with pharmacy to dose Patient may require surgery in the near future Resume beta driss with parameters 3. History of renal transplant due to ESRD From diabetes Resume home medications 4. Insulin-dependent diabetes mellitus Check blood sugars every 4 hours since patient is nothing by mouth Insulin sliding scale Resume home insulin 5. Hypertension, hyperlipidemia, and hypothyroid Resume home medications 6. Debility Fall precautions 7. GI DVT prophylaxis 8. A.m. labs Disposition: Patient clean need rehab versus home with home care Patient will require greater than 2 midnight hospital stay Patient is a full code Greater than 45 minutes spent coordinating care documenting and counseling patient Time with Patient: Greater than 30
[2022-09-24 17:04] LABS: Basophils % (A) 0 %; Eosinophils # (A) 0.1 k/uL (0-0.7); Eosinophils % (A) 1 %; HCT 35.9 % (34.0-46.0); HGB 10.6 gm/dL (11.4-16.0); Hypochromasia Marked; Lymphocytes % (A) 10 %; MCH 23.2 pg (25.0-35.0); MCHC 29.6 g/dL (31.0-37.0); MCV 78.4 fL (80.0-100.0); Microcytosis Slight; Monocytes # (A) 0.4 k/uL (0-1.0); Monocytes % (A) 4 %; Neutrophils # (A) 8.4 k/uL (1.3-7.7); Neutrophils % (A) 84 %; Platelet Count 218 k/uL (150-450); RBC 4.58 m/uL (3.80-5.40); RDW 15.9 % (11.5-15.5)
[2022-09-24] MEDS: INSULIN ASPART (NovoLOG) 100 UNIT/ML VIAL SQ SCH (17:09)
[2022-09-24 17:11] LABS: Glucose,Whole Blood 108 mg/dL (70-110)
[2022-09-24 17:14] LABS: Albumin 4.2 g/dL (3.5-5.0); Calcium 9.1 mg/dL (8.4-10.2); Potassium 5.2 mmol/L (3.5-5.1); Total Bilirubin 0.6 mg/dL (0.2-1.3); Total Protein 7.4 g/dL (6.3-8.2)
[2022-09-24 17:15] LABS: Appearance,Urine Clear (Clear); Bacteria,Urine Moderate /hpf; Bilirubin,Urine Negative (Negative); Blood,Urine Trace (Negative); Calcium Oxalate Crystals,Urine Occasional /hpf; Color,Urine Yellow; Glucose,Urine (UA) Negative (Negative); Ketones,Urine Negative (Negative); Leukocyte Esterase,Urine Small (Negative); Mucus,Urine Rare /hpf; Nitrite,Urine Negative (Negative); Protein,Urine Negative (Negative); RBC,Urine 3 /hpf (0-5); Specific Gravity,Urine 1.021 (1.001-1.035); Squamous Epithelial Cell,Urine 2 /hpf (0-4); Urobilinogen,Urine <2.0 mg/dL (<2.0); WBC,Urine 2 /hpf (0-5)
[2022-09-24] MEDS ORDERED: NALOXONE 0.4 MG/ML 1 ML VIAL IV PRN (17:27)
[2022-09-24] MEDS: PANTOPRAZOLE 40 MG/10 ML VIAL IVP SCH (17:33)
[2022-09-24] MEDS: carvediloL 6.25 MG TAB PO SCH (17:38)
[2022-09-24] MEDS: LEVOFLOXACIN 500MG-D5W PMX 500 MG in DEXTROSE/WATER 1 100ML.BAG IVPB SCH (17:41)
[2022-09-24] MEDS: metroNIDAZOLE-NS PMX 500 MG in SALINE 1 100ML.BAG IVPB SCH ×2 (17:49→23:05)
[2022-09-24] MEDS: INSULIN DETEMIR (LEVEMIR) 100 UNIT/ML SYR SQ SCH (20:48)
[2022-09-24] MEDS: TACROLIMUS 1 MG CAP PO SCH (20:48)
[2022-09-25 06:03] LABS: Glucose,Whole Blood 86 mg/dL (70-110)
[2022-09-25] MEDS: INSULIN ASPART (NovoLOG) 100 UNIT/ML VIAL SQ SCH ×3 (06:07→17:57)
[2022-09-25] MEDS: LEVOTHYROXINE 75 MCG TAB PO SCH (06:19)
[2022-09-25] MEDS: carvediloL 6.25 MG TAB PO SCH (06:19)
[2022-09-25] MEDS ORDERED: SODIUM POLYSTYRENE SULFONATE 15 GM/60 ML BOTTLE PO STA (07:27)
[2022-09-25] MEDS: MAGNESIUM OXIDE 400 MG TAB PO SCH (08:43)
[2022-09-25] MEDS: metroNIDAZOLE-NS PMX 500 MG in SALINE 1 100ML.BAG IVPB SCH ×3 (08:43→23:08)
[2022-09-25] MEDS: TACROLIMUS 1 MG CAP PO SCH ×2 (08:43→21:29)
[2022-09-25] MEDS: ATORVASTATIN 20 MG TAB PO SCH (08:43)
[2022-09-25] MEDS: predniSONE 5 MG TAB PO SCH (08:44)
[2022-09-25] MEDS: ACETAMINOPHEN TAB 325 MG TAB PO PRN (08:44)
[2022-09-25] MEDS: PANTOPRAZOLE 40 MG/10 ML VIAL IVP SCH (08:44)
[2022-09-25 09:44] LABS: Anisocytosis Slight; Basophils % (A) 0 %; Eosinophils # (A) 0.1 k/uL (0-0.7); Eosinophils % (A) 1 %; HCT 34.3 % (34.0-46.0); HGB 9.7 gm/dL (11.4-16.0); Hypochromasia Marked; Lymphocytes # (A) 0.9 k/uL (1.0-4.8); Lymphocytes % (A) 17 %; MCH 22.7 pg (25.0-35.0); MCHC 28.4 g/dL (31.0-37.0); MCV 79.8 fL (80.0-100.0); Mean Platelet Volume 8.1; Monocytes # (A) 0.4 k/uL (0-1.0); Monocytes % (A) 6 %; Neutrophils # (A) 4.1 k/uL (1.3-7.7); Neutrophils % (A) 73 %; Platelet Count 131 k/uL (150-450); RDW 16.1 % (11.5-15.5); WBC 5.6 k/uL (3.8-10.6)
[2022-09-25 09:52] LABS: ALT 13 U/L (4-34); African American GFR (CKD) 57 (>60 ml/min/1.73 sqM); Albumin 3.3 g/dL (3.5-5.0); Albumin/Globulin Ratio 1.1; Anion Gap 7 mmol/L; Blood Urea Nitrogen 24 mg/dL (7-17); Calcium 8.3 mg/dL (8.4-10.2); Carbon Dioxide 20 mmol/L (22-30); Chloride 112 mmol/L (98-107); Globulin 2.9 g/dL; Glucose 73 mg/dL (74-99); Non-African American GFR(CKD) 50 (>60 ml/min/1.73 sqM); Sodium 139 mmol/L (137-145); Total Bilirubin 0.6 mg/dL (0.2-1.3); Total Protein 6.2 g/dL (6.3-8.2)
[2022-09-25 09:59] LABS: AST 24 U/L (14-36); Alkaline Phosphatase 62 U/L (38-126); Potassium 5.2 mmol/L (3.5-5.1)
--- NOTE | 2022-09-25 10:44 | P.CRDCN ---
History of Present Illness History of present illness: HISTORY OF PRESENT ILLNESS: This is a 57-year-old female with a past medical history significant for DVT on Eliquis, kidney transplant approximately 10 years ago, diabetes, and congestive heart failure. The patient also believe she may have cardiomyopathy. She den ies ever having a heart attack or stents in the heart. Patient follows with a printed circuit boards inspector in [place]. We have been asked to see the patient in consultation for cardiac risk assessment. Patient examined at the bedside. Patient presented to the hospital with abdominal pain. Patient was diagnosed with acute cholecystitis and is scheduled for surgical intervention tomorrow. The patient currently denies any chest pain or pressure. She denies shortness of breath. She is able to lay flat in bed without any shortness of breath. She believes that she would be able to walk up a flight of stairs without feeling short of breath. However she does report using a cane to help her ambulate. She reports having a stress test about 2 years ago which she states was normal to her knowledge. * EKG reveals sinus mechanism with no signs of acute ischemia * Laboratory data: WBC 5.6. Hemoglobin 9.7. Platelet count 131. Sodium 139. Potassium 5.2. BUN 24. Creatinine 1.23. TSH 1.510. * Current home cardiac medications include Lipitor 20 mg daily, Coreg 6.25 mg twice a day, Lasix 20 mg daily, aspirin 81 mg daily, and Eliquis 5mg BID REVIEW OF SYSTEMS: At the time of my exam: CONSTITUTIONAL: Denies fever or chills. HEENT: Denies blurred vision, vision changes, or eye pain. Denies hemoptysis CARDIOVASCULAR: Denies chest pain. Denies orthopnea. Denies PND. Denies palpitations RESPIRATORY: Denies shortness of breath. GASTROINTESTINAL: Denies abdominal pain. Denies nausea or vomiting. HEMATOLOGIC: Denies bleeding disorders. GENITOURINARY: Denies any blood in urine. SKIN: Denies pruitis. Denies rash. PHYSICAL EXAM: VITAL SIGNS: Reviewed. GENERAL: Well-developed in no acute distress. HEENT: Head is normocephalic. Pupils are equal, round. Sclerae anicteric. Mucous membranes of the mouth are moist. Neck supple. No JVD or thyromegaly LUNGS: Respirations even and unlabored. Lungs essentially clear to auscultation bilaterally. HEART: Regular rate and rhythm. S1 and S2 heard. ABDOMEN: Soft. Nondistended. Nontender. EXTREMITIES: Normal range of motion. No clubbing or cyanosis. Peripheral pulses intact. Trace lower extremity edema NEUROLOGIC: Awake and alert. Oriented x 3. ASSESSMENT: Acute cholecystitis, surgery following History of DVT on Eliquis, patient denies hx of atrial fibrillation History of kidney transplant Hypertension Hyperlipidemia Diabetes Chronic congestive heart failure, type unknown, echo pending Questionable history of cardiomyopathy, patient unsure PLAN: Obtain 2D echo to assess cardiac structure and function Resume home cardiac medications Hold Eliquis for surgical intervention Patient is high risk for surgery from a cardiac standpoint. However, no absolute contraindications. Further recommendations pending patient's course Nurse practitioner note has been reviewed by physician. Signing provider agrees with the documented findings, assessment, and plan of care. Past Medical History Past Medical History: Diabetes Mellitus, Hyperlipidemia, Hypertension, Thyroid Disorder History of Any Multi-Drug Resistant Organisms: None Reported Additional Past Surgical History / Comment(s): kidney transplant in 2011 Past Anesthesia/Blood Transfusion Reactions: No Reported Reaction Past Psychological History: No Psychological Hx Reported Smoking Status: Never smoker Past Alcohol Use History: None Reported Past Drug Use History: None Reported Medications and Allergies Home Medications Medication Instructions Recorded Confirmed Type Atorvastatin [Lipitor] 20 mg PO DAILY 05/02/21 09/24/22 History Furosemide [Lasix] 20 mg PO DAILY 05/02/21 09/24/22 History Insulin Aspart [NovoLOG Flexpen] See Protocol SQ AC-TID 05/02/21 09/24/22 History Levothyroxine Sodium [Synthroid] 75 mcg PO DAILY 05/02/21 09/24/22 History Magnesium Oxide 400 mg PO DAILY 05/02/21 09/24/22 History Potassium Chloride [Potassium 10 meq PO DAILY 05/02/21 09/24/22 History Chloride ER] Albuterol Sulfate [Albuterol 2 puff PO RT-Q6H PRN 09/24/22 09/24/22 History Sulfate Hfa] Apixaban [Eliquis] 5 mg PO BID 09/24/22 09/24/22 History Aspirin EC [Ecotrin Low Dose] 81 mg PO DAILY 09/24/22 09/24/22 History Insulin Detemir [Levemir Flextouch 20 units SQ HS 09/24/22 09/24/22 History Pen] Ondansetron [Zofran] 4 mg PO Q8HR PRN 09/24/22 09/24/22 History Tacrolimus [Prograf] 2 mg PO BID 09/24/22 09/24/22 History carvediloL [Coreg] 6.25 mg PO BID 09/24/22 09/24/22 History mycophenolate mofetiL [Cellcept] 1,500 mg PO BID 09/24/22 09/24/22 History predniSONE 5 mg PO DAILY 09/24/22 09/24/22 History Allergies Allergy/AdvReac Type Severity Reaction Status Date / Time clindamycin Allergy Rash/Hives Verified 09/24/22 15:47 Physical Exam Vitals: Vital Signs Temp Pulse Pulse Resp BP BP Pulse Ox 09/25/22 03:37 98.7 F 66 17 136/69 93 L 09/24/22 21:57 98.8 F 74 17 166/67 96 09/24/22 20:00 64 16 127/72 09/24/22 19:25 64 16 104/55 98 09/24/22 18:00 65 20 156/71 96 09/24/22 17:00 68 20 128/80 96 09/24/22 16:00 65 18 141/87 09/24/22 15:00 65 18 144/80 96 09/24/22 14:00 62 18 157/80 95 09/24/22 13:01 61 22 157/69 95 09/24/22 12:48 98.0 F 66 22 148/100 95 Intake and Output 09/24/22 09/25/22 09/25/22 22:59 06:59 14:59 Other: Voiding Method Toilet Toilet # Voids 1 Weight 102.058 kg Results 09/25/22 09:17 09/25/22 09:17 Cardiac Enzymes 09/24/22 Range/Units 16:56 AST 27 (14-36) U/L CBC 09/24/22 Range/Units 16:56 WBC 10.0 (3.8-10.6) k/uL RBC 4.58 (3.80-5.40) m/uL Hgb 10.6 L (11.4-16.0) gm/dL Hct 35.9 (34.0-46.0) % Plt Count 218 (150-450) k/uL Comprehensive Metabolic Panel 09/24/22 Range/Units 16:56 Sodium 142 (137-145) mmol/L Potassium 5.2 H (3.5-5.1) mmol/L Chloride 107 (98-107) mmol/L Carbon Dioxide 25 (22-30) mmol/L BUN 28 H (7-17) mg/dL Creatinine 1.04 (0.52-1.04) mg/dL Glucose 111 H (74-99) mg/dL Calcium 9.1 (8.4-10.2) mg/dL AST 27 (14-36) U/L ALT 16 (4-34) U/L Alkaline Phosphatase 99 (38-126) U/L Total Protein 7.4 (6.3-8.2) g/dL Albumin 4.2 (3.5-5.0) g/dL Current Medications Generic Name Dose Route Start Last Admin Trade Name Freq PRN Reason Stop Dose Admin Albuterol/Ipratropium 3 ml 09/24/22 16:32 Ipratropium-Albuterol 3 Ml Neb INHALATION Q4H PRN Shortness Of Breath Atorvastatin Calcium 20 mg 09/25/22 09:00 Atorvastatin 20 Mg Tab PO DAILY WILLIAM Carvedilol 6.25 mg 09/24/22 17:30 09/25/22 06:19 Carvedilol 6.25 Mg Tab PO 6.25 mg AC-BID WILLIAM Administration Dextrose/Water 25 ml 09/24/22 16:31 Dextrose 50% Syringe 50 Ml IVP PER PROTOCOL PRN Hypoglycemia Protocol Dextrose/Water 50 ml 09/24/22 16:31 Dextrose 50% Syringe 50 Ml IVP PER PROTOCOL PRN Hypoglycemia Protocol Hydralazine HCl 10 mg 09/24/22 16:24 Hydralazine Hcl 20 Mg/Ml 1 Ml Vial IVP Q6H PRN Hypertension Metronidazole 500 mg/ IV 100 mls @ 100 mls/hr 09/24/22 16:00 09/24/22 23:05 Solution IVPB 100 mls/hr Q8H WILLIAM Administration Protocol Levofloxacin 500 mg/ IV 100 mls @ 100 mls/hr 09/24/22 16:00 09/24/22 17:41 Solution IVPB 100 mls/hr DAILY WILLIAM Administration Protocol Insulin Aspart 0 unit 09/24/22 17:30 09/25/22 06:07 Insulin Aspart (Novolog) 100 Unit/Ml Vial SQ Not Given AC-TID [facility] Protocol Insulin Detemir 20 unit 09/24/22 21:00 09/24/22 20:48 Insulin Detemir (Levemir) 100 Unit/Ml Syr SQ 20 unit HS WILLIAM Administration Levothyroxine Sodium 75 mcg 09/25/22 06:30 09/25/22 06:19 Levothyroxine 75 Mcg Tab PO 75 mcg DAILY@0630 WILLIAM Administration Magnesium Oxide 400 mg 09/25/22 09:00 Magnesium Oxide 400 Mg Tab PO DAILY WILLIAM Morphine Sulfate 2 mg 09/24/22 15:57 Morphine Sulfate 2 Mg/Ml Syringe IVP Q6HR PRN Pain/Discomfort Mycophenolate Mofetil 1,500 mg 09/24/22 21:00 09/24/22 20:48 Mycophenolate Mofetil 500 Mg Tab PO 1,500 mg BID WILLIAM Administration Naloxone HCl 0.2 mg 09/24/22 17:27 Naloxone 0.4 Mg/Ml 1 Ml Vial IV Q2M PRN Opioid Reversal Ondansetron HCl 4 mg 09/24/22 15:56 Ondansetron 4 Mg/2 Ml Vial IVP Q4H PRN Nausea Pantoprazole Sodium 40 mg 09/24/22 16:00 09/24/22 17:33 Pantoprazole 40 Mg/10 Ml Vial IVP 40 mg DAILY WILLIAM Administration Prednisone 5 mg 09/25/22 09:00 Prednisone 5 Mg Tab PO DAILY WILLIAM Tacrolimus 2 mg 09/24/22 21:00 09/24/22 20:48 Tacrolimus 1 Mg Cap PO 2 mg BID WILLIAM Administration Intake and Output 09/24/22 09/25/22 09/25/22 22:59 06:59 14:59 Other: Voiding Method Toilet Toilet # Voids 1 Weight 102.058 kg 09/24/22 16:56 09/24/22 16:56
[2022-09-25] MEDS: LEVOFLOXACIN 500MG-D5W PMX 500 MG in DEXTROSE/WATER 1 100ML.BAG IVPB SCH (10:57)
[2022-09-25 11:36] VITALS: BMI 41.1
[2022-09-25 12:17] LABS: Glucose,Whole Blood 123 mg/dL (70-110)
--- NOTE | 2022-09-25 13:05 | P.GSCN ---
History of Present Illness Consult date: 09/25/22 History of present illness: CHIEF COMPLAINT: Right upper quadrant abdominal pain HISTORY OF PRESENT ILLNESS: This is a 57-year-old female who presented to the hospital for complaints of right upper quadrant abdominal pain that started at 4 AM. Patient reports that she woke up due to this pain. She has been having nausea and vomiting. She reports that pain and nausea increase after eating greasy or fatty foods. She had similar symptoms that occurred 3 weeks ago. She did have a low-grade temp on admission. Patient initially presented to [facility] where she had a computed tomography scan of the abdomen and an ultrasound the abdomen with concerns of acute cholecystitis. She was then transferred to [facility] for surgical evaluation. Patient has a history of DVT and she is on Eliquis for anticoagulation. Her last dose of Eliquis was Thursday morning. She does have a surgical history of kidney transplant. Patient does have cardiac history with CHF. Surgical service consulted in regards to acute cholecystitis. Patient is on antibiotics. Patient reports that her pain is better this morning PAST MEDICAL HISTORY: See list. PAST SURGICAL HISTORY: See list. MEDICATIONS: See list. ALLERGIES: See list. SOCIAL HISTORY: No illicit drug use. REVIEW OF SYSTEMS: CONSTITUTIONAL: Denies fever or chills. HEENT: Denies blurred vision, vision changes, or eye pain. Denies hemoptysis ENDOCRINE: Denies heat or cold intolerance. CARDIOVASCULAR: Denies chest pain or pressure. RESPIRATORY: No shortness of breath. GASTROINTESTINAL: Denies abdominal pain. Denies nausea or vomiting. NEURO: Denies history of seizures. PSYCH: No depression or suicidal ideation HEMATOLOGIC: Denies bleeding disorders. LYMPHATIC: The patient denies any lumps and bumps around the neck. GENITOURINARY: Denies any blood in urine or increased urinary frequency. MUSCULOSKELETAL: Denies myalgias. Denies joint swelling. Denies decreased range of motion beyond patients baseline. SKIN: Denies pruitis. Denies rash. PHYSICAL EXAM: VITAL SIGNS: Reviewed GENERAL: Well-developed in no acute distress. HEENT: No sclera icterus. Extraocular movements grossly intact. Moist buccal mucosa. Head is atraumatic, normocephalic. Hears conversational speech. No nasal drainage. NECK: Supple without lymphadenopathy. CHEST: Non-labored respirations and equal bilateral excursions. CARDIOVASCULAR: Palpable 2+ radial pulses. ABDOMEN: Soft. Nondistended. Nontender MUSCULOSKELETAL: No clubbing or cyanosis. NEUROLOGIC: No focal or lateralizing signs. Cranial nerves II through XII grossly intact. PSYCH: Appropriate affect. Alert and oriented to person, place and time. SKIN: Well perfused. Good skin turgor. LABORATORY DATA: WBC 5.6 Hgb 9.7 platelets 131 Sodium is 139 potassium is 5.2 creatinine 1.23 Hemoglobin A1c 9.0 AST 24 ALT 13 alk phos 62 IMAGING: Computed tomography scan abdomen and pelvis shows distended gallbladder contains calculi in the neck or proximal cystic duct. There is mild stranding of the pericholecystic fat. Acute cholecystitis is suspected. Abdominal ultrasound distended gallbladder without other specific signs of acute cholecystitis. Steatosis. ASSESSMENT: 1. Acute cholecystitis 2. History of DVT left leg on Eliquis 3. History of kidney transplant 4. Diabetes mellitus 5. Hyperlipidemia 6. Hypertension 7. Chronic congestive heart failure 8. Hyperkalemia being corrected PLAN: -Patient scheduled for Robotic Cholecystectomy with Dr. Foreman -Continue antibiotics -Continue IV fluid -Cardiology consulted for cardiac risk assessment -Echo ordered -Continue supportive care Thank you for this consultation Physician Manufacturing Software Engineer note has been reviewed by physician. Signing provider agrees with the documented findings, assessment, and plan of care. Past Medical History Past Medical History: Diabetes Mellitus, Hyperlipidemia, Hypertension, Thyroid D isorder History of Any Multi-Drug Resistant Organisms: None Reported Additional Past Surgical History / Comment(s): kidney transplant in 2011 Past Anesthesia/Blood Transfusion Reactions: No Reported Reaction Past Psychological History: No Psychological Hx Reported Smoking Status: Never smoker Past Alcohol Use History: None Reported Past Drug Use History: None Reported Medications and Allergies Home Medications Medication Instructions Recorded Confirmed Type Atorvastatin [Lipitor] 20 mg PO DAILY 05/02/21 09/24/22 History Furosemide [Lasix] 20 mg PO DAILY 05/02/21 09/24/22 History Insulin Aspart [NovoLOG Flexpen] See Protocol SQ AC-TID 05/02/21 09/24/22 History Levothyroxine Sodium [Synthroid] 75 mcg PO DAILY 05/02/21 09/24/22 History Magnesium Oxide 400 mg PO DAILY 05/02/21 09/24/22 History Potassium Chloride [Potassium 10 meq PO DAILY 05/02/21 09/24/22 History Chloride ER] Albuterol Sulfate [Albuterol 2 puff PO RT-Q6H PRN 09/24/22 09/24/22 History Sulfate Hfa] Apixaban [Eliquis] 5 mg PO BID 09/24/22 09/24/22 History Aspirin EC [Ecotrin Low Dose] 81 mg PO DAILY 09/24/22 09/24/22 History Insulin Detemir [Levemir Flextouch 20 units SQ HS 09/24/22 09/24/22 History Pen] Ondansetron [Zofran] 4 mg PO Q8HR PRN 09/24/22 09/24/22 History Tacrolimus [Prograf] 2 mg PO BID 09/24/22 09/24/22 History carvediloL [Coreg] 6.25 mg PO BID 09/24/22 09/24/22 History mycophenolate mofetiL [Cellcept] 1,500 mg PO BID 09/24/22 09/24/22 History predniSONE 5 mg PO DAILY 09/24/22 09/24/22 History Allergies Allergy/AdvReac Type Severity Reaction Status Date / Time clindamycin Allergy Rash/Hives Verified 09/24/22 15:47 Surgical - Exam Vital Signs Temp Pulse Resp BP Pulse Ox 98.0 F 66 22 148/100 95 09/24/22 12:48 09/24/22 12:48 09/24/22 12:48 09/24/22 12:48 09/24/22 12:48 Results - Labs 09/25/22 09:17 09/25/22 09:17 Abnormal Lab Results - Last 24 Hours (Table) 09/24/22 09/24/22 09/24/22 Range/Units 16:56 16:56 16:56 Hgb 10.6 L (11.4-16.0) gm/dL MCV 78.4 L (80.0-100.0) fL MCH 23.2 L (25.0-35.0) pg MCHC 29.6 L (31.0-37.0) g/dL RDW 15.9 H (11.5-15.5) % Neutrophils # 8.4 H (1.3-7.7) k/uL Potassium 5.2 H (3.5-5.1) mmol/L BUN 28 H (7-17) mg/dL Glucose 111 H (74-99) mg/dL Hemoglobin A1c (0.0-6.0) % Urine Blood Trace H (Negative) Ur Leukocyte Esterase Small H (Negative) Calcium Oxalate Crystal Occasional H (None) /hpf Urine Bacteria Moderate H (None) /hpf Urine Mucus Rare H (None) /hpf 09/24/22 Range/Units 16:56 Hgb (11.4-16.0) gm/dL MCV (80.0-100.0) fL MCH (25.0-35.0) pg MCHC (31.0-37.0) g/dL RDW (11.5-15.5) % Neutrophils # (1.3-7.7) k/uL Potassium (3.5-5.1) mmol/L BUN (7-17) mg/dL Glucose (74-99) mg/dL Hemoglobin A1c 9.0 H (0.0-6.0) % Urine Blood (Negative) Ur Leukocyte Esterase (Negative) Calcium Oxalate Crystal (None) /hpf Urine Bacteria (None) /hpf Urine Mucus (None) /hpf Diabetes panel 09/24/22 09/24/22 Range/Units 16:56 16:56 Sodium 142 (137-145) mmol/L Potassium 5.2 H (3.5-5.1) mmol/L Chloride 107 (98-107) mmol/L Carbon Dioxide 25 (22-30) mmol/L BUN 28 H (7-17) mg/dL Creatinine 1.04 (0.52-1.04) mg/dL Glucose 111 H (74-99) mg/dL Hemoglobin A1c 9.0 H (0.0-6.0) % Calcium 9.1 (8.4-10.2) mg/dL AST 27 (14-36) U/L ALT 16 (4-34) U/L Alkaline Phosphatase 99 (38-126) U/L Total Protein 7.4 (6.3-8.2) g/dL Albumin 4.2 (3.5-5.0) g/dL Calcium panel 09/24/22 Range/Units 16:56 Calcium 9.1 (8.4-10.2) mg/dL Albumin 4.2 (3.5-5.0) g/dL Pituitary panel 09/24/22 Range/Units 16:56 Sodium 142 (137-145) mmol/L Potassium 5.2 H (3.5-5.1) mmol/L Chloride 107 (98-107) mmol/L Carbon Dioxide 25 (22-30) mmol/L BUN 28 H (7-17) mg/dL Creatinine 1.04 (0.52-1.04) mg/dL Glucose 111 H (74-99) mg/dL Calcium 9.1 (8.4-10.2) mg/dL Adrenal panel 09/24/22 Range/Units 16:56 Sodium 142 (137-145) mmol/L Potassium 5.2 H (3.5-5.1) mmol/L Chloride 107 (98-107) mmol/L Carbon Dioxide 25 (22-30) mmol/L BUN 28 H (7-17) mg/dL Creatinine 1.04 (0.52-1.04) mg/dL Glucose 111 H (74-99) mg/dL Calcium 9.1 (8.4-10.2) mg/dL Total Bilirubin 0.6 (0.2-1.3) mg/dL AST 27 (14-36) U/L ALT 16 (4-34) U/L Alkaline Phosphatase 99 (38-126) U/L Total Protein 7.4 (6.3-8.2) g/dL Albumin 4.2 (3.5-5.0) g/dL
--- NOTE | 2022-09-25 14:58 | P.PN ---
Subjective Progress Note Date: 09/25/22 Patient seen and examined at bedside. Patient states her abdominal pain has improved. Patient states that her chest feels full. Patient denies fever chills nausea vomiting diarrhea or constipation. Objective - Vital Signs Vital signs: Vital Signs Temp 98.2 F 09/25/22 10:39 Pulse 66 09/25/22 10:39 Resp 16 09/25/22 10:39 BP 93/57 09/25/22 10:39 Pulse Ox 93 L 09/25/22 10:39 FiO2 Intake & Output 09/24/22 09/25/22 09/25/22 18:59 06:59 18:59 Weight 102.058 kg 102.058 kg Other: Voiding Method Toilet # Voids 1 2 - Exam General: [non toxic], [no distress], [appears at stated age] Derm: [warm], [dry] Head: [atraumatic], [normocephalic], [symmetric] Eyes: [EOMI], [no lid lag], [anicteric sclera] Mouth: [no lip lesion], [mucus membranes moist] Cardiovascular: [S1S2 reg], [no murmur], [positive posterior tibial pulse bilateral], Lungs: [CTA bilateral], [no rhonchi, no rales] , [no accessory muscle use] Abdominal: [soft], [ epigastric tenderness to palpation], [no guarding], [no appreciable organomegaly] Ext: [no gross muscle atrophy], [no edema], [no contractures] Neuro: [ CN II-XI grossly intact], [no focal neuro deficits] Psych: [Alert], [oriented], [appropriate affect] - Labs CBC & Chem 7: 09/25/22 09:17 09/25/22 09:17 Labs: Abnormal Lab Results - Last 24 Hours (Table) 09/24/22 09/24/22 09/24/22 Range/Units 16:56 16:56 16:56 Hgb 10.6 L (11.4-16.0) gm/dL MCV 78.4 L (80.0-100.0) fL MCH 23.2 L (25.0-35.0) pg MCHC 29.6 L (31.0-37.0) g/dL RDW 15.9 H (11.5-15.5) % Plt Count (150-450) k/uL Neutrophils # 8.4 H (1.3-7.7) k/uL Lymphocytes # (1.0-4.8) k/uL Potassium 5.2 H (3.5-5.1) mmol/L Chloride (98-107) mmol/L Carbon Dioxide (22-30) mmol/L BUN 28 H (7-17) mg/dL Creatinine (0.52-1.04) mg/dL Glucose 111 H (74-99) mg/dL POC Glucose (mg/dL) (70-110) mg/dL Hemoglobin A1c (0.0-6.0) % Calcium (8.4-10.2) mg/dL Total Protein (6.3-8.2) g/dL Albumin (3.5-5.0) g/dL Urine Blood Trace H (Negative) Ur Leukocyte Esterase Small H (Negative) Calcium Oxalate Crystal Occasional H (None) /hpf Urine Bacteria Moderate H (None) /hpf Urine Mucus Rare H (None) /hpf 09/24/22 09/25/22 09/25/22 Range/Units 16:56 09:17 09:17 Hgb 9.7 L (11.4-16.0) gm/dL MCV 79.8 L (80.0-100.0) fL MCH 22.7 L (25.0-35.0) pg MCHC 28.4 L (31.0-37.0) g/dL RDW 16.1 H (11.5-15.5) % Plt Count 131 L (150-450) k/uL Neutrophils # (1.3-7.7) k/uL Lymphocytes # 0.9 L (1.0-4.8) k/uL Potassium 5.2 H (3.5-5.1) mmol/L Chloride 112 H (98-107) mmol/L Carbon Dioxide 20 L (22-30) mmol/L BUN 24 H (7-17) mg/dL Creatinine 1.23 H (0.52-1.04) mg/dL Glucose 73 L (74-99) mg/dL POC Glucose (mg/dL) (70-110) mg/dL Hemoglobin A1c 9.0 H (0.0-6.0) % Calcium 8.3 L (8.4-10.2) mg/dL Total Protein 6.2 L (6.3-8.2) g/dL Albumin 3.3 L (3.5-5.0) g/dL Urine Blood (Negative) Ur Leukocyte Esterase (Negative) Calcium Oxalate Crystal (None) /hpf Urine Bacteria (None) /hpf Urine Mucus (None) /hpf 09/25/22 Range/Units 12:15 Hgb (11.4-16.0) gm/dL MCV (80.0-100.0) fL MCH (25.0-35.0) pg MCHC (31.0-37.0) g/dL RDW (11.5-15.5) % Plt Count (150-450) k/uL Neutrophils # (1.3-7.7) k/uL Lymphocytes # (1.0-4.8) k/uL Potassium (3.5-5.1) mmol/L Chloride (98-107) mmol/L Carbon Dioxide (22-30) mmol/L BUN (7-17) mg/dL Creatinine (0.52-1.04) mg/dL Glucose (74-99) mg/dL POC Glucose (mg/dL) 123 H (70-110) mg/dL Hemoglobin A1c (0.0-6.0) % Calcium (8.4-10.2) mg/dL Total Protein (6.3-8.2) g/dL Albumin (3.5-5.0) g/dL Urine Blood (Negative) Ur Leukocyte Esterase (Negative) Calcium Oxalate Crystal (None) /hpf Urine Bacteria (None) /hpf Urine Mucus (None) /hpf Assessment and Plan Assessment: 1. Abdominal pain secondary to cholecystitis Patient was scheduled for robotic cholecystectomy General surgery recommendations appreciated Continue IV fluids Continue IV antibiotics Levaquin and Flagyl Obtain cultures Pain control morphine when necessary Vitals every 4 hours antiemetic Zofran when necessary admit to telemetry 2. History of DVT due to Covid with questionable history of A. fib due to Covid Cardiology recommendations appreciated Eliquis held Resume beta driss with parameters 3. History of renal transplant due to ESRD From diabetes Resume home medications 4. Insulin-dependent diabetes mellitus Check blood sugars every 4 hours since patient is nothing by mouth Insulin sliding scale Resume home insulin 5. Hypertension, hyperlipidemia, and hypothyroid Resume home medications 6. Debility Fall precautions 7. GI DVT prophylaxis 8. A.m. labs Disposition: Patient needs rehab versus home with home care Patient will require greater than 2 midnight hospital stay Patient is a full code
[2022-09-25 17:34] LABS: Glucose,Whole Blood 186 mg/dL (70-110)
[2022-09-25] MEDS: carvediloL 3.125 MG TAB PO SCH (17:57)
[2022-09-25 21:07] LABS: Glucose,Whole Blood 209 mg/dL (70-110)
[2022-09-25] MEDS: INSULIN DETEMIR (LEVEMIR) 100 UNIT/ML SYR SQ SCH (21:29)
--- NOTE | 2022-09-25 21:46 | P.PN ---
Progress Note - Text Progress Note Date: 09/25/22 Patient has complicated medical history including renal allograft transplant, recent DVT in his thrombosis with thrombectomy, current anticoagulant to use, multiple comorbidities. EKG changes noted in the past 2 years hence cardiology consultation was requested. Patient does report improvement of her abdominal pain since admission while on antibiotics. This patient is extremely high surgical risk for surgical morbidity and mortality from recent thrombosis and procedures, we'll recommend HIDA scan. Otherwise do recommend conservative management due to multiple comorbidities and recent anticoagulant use with Eliquis.
[2022-09-26] MEDS: ACETAMINOPHEN TAB 325 MG TAB PO PRN (02:12)
[2022-09-26 06:32] LABS: Glucose,Whole Blood 181 mg/dL (70-110)
[2022-09-26] MEDS: LEVOTHYROXINE 75 MCG TAB PO SCH (06:36)
[2022-09-26] MEDS: carvediloL 3.125 MG TAB PO SCH ×3 (06:36→18:05)
[2022-09-26] MEDS: INSULIN ASPART (NovoLOG) 100 UNIT/ML VIAL SQ SCH ×3 (06:36→18:01)
[2022-09-26 08:00] LABS: ALT 99 U/L (4-34); AST 349 U/L (14-36); African American GFR (CKD) 48 (>60 ml/min/1.73 sqM); Albumin 2.8 g/dL (3.5-5.0); Albumin/Globulin Ratio 1.1; Alkaline Phosphatase 350 U/L (38-126); Anion Gap 5 mmol/L; Blood Urea Nitrogen 25 mg/dL (7-17); Calcium 8.1 mg/dL (8.4-10.2); Carbon Dioxide 22 mmol/L (22-30); Chloride 112 mmol/L (98-107); Globulin 2.5 g/dL; Glucose 169 mg/dL (74-99); Non-African American GFR(CKD) 41 (>60 ml/min/1.73 sqM); Potassium 4.5 mmol/L (3.5-5.1); Sodium 139 mmol/L (137-145); Total Protein 5.3 g/dL (6.3-8.2)
[2022-09-26 08:11] LABS: Basophils % (A) 0 %; Eosinophils # (A) 0.1 k/uL (0-0.7); Eosinophils % (A) 1 %; HCT 29.1 % (34.0-46.0); HGB 8.3 gm/dL (11.4-16.0); Hypochromasia Marked; Lymphocytes # (A) 0.7 k/uL (1.0-4.8); Lymphocytes % (A) 12 %; MCH 22.4 pg (25.0-35.0); MCHC 28.4 g/dL (31.0-37.0); MCV 78.8 fL (80.0-100.0); Mean Platelet Volume 8.4; Microcytosis Slight; Monocytes # (A) 0.3 k/uL (0-1.0); Monocytes % (A) 6 %; Neutrophils # (A) 4.6 k/uL (1.3-7.7); Neutrophils % (A) 79 %; Platelet Count 158 k/uL (150-450); RDW 15.9 % (11.5-15.5); WBC 5.8 k/uL (3.8-10.6)
[2022-09-26] MEDS: metroNIDAZOLE-NS PMX 500 MG in SALINE 1 100ML.BAG IVPB SCH ×2 (10:14→16:40)
[2022-09-26] MEDS: ATORVASTATIN 20 MG TAB PO SCH (10:16)
[2022-09-26] MEDS: PANTOPRAZOLE 40 MG/10 ML VIAL IVP SCH (10:17)
[2022-09-26] MEDS: MAGNESIUM OXIDE 400 MG TAB PO SCH (10:17)
[2022-09-26] MEDS: predniSONE 5 MG TAB PO SCH (10:17)
[2022-09-26] MEDS: TACROLIMUS 1 MG CAP PO SCH ×2 (10:17→20:10)
[2022-09-26 10:34] LABS: Glucose,Whole Blood 126 mg/dL (70-110)
[2022-09-26] MEDS: LEVOFLOXACIN 500MG-D5W PMX 500 MG in DEXTROSE/WATER 1 100ML.BAG IVPB SCH (11:32)
--- NOTE | 2022-09-26 12:06 | P.PN ---
Subjective Progress Note Date: 09/26/22 HISTORY OF PRESENT ILLNESS: This is a 57-year-old female with a past medical history significant for DVT on Eliquis, kidney transplant approximately 10 years ago, diabetes, and congestive heart failure. The patient also believe she may have cardiomyopathy. She denies ever having a heart attack or stents in the heart. Patient follows with a licensed optical dispenser in [place]. We have been asked to see the patient in consultation for cardiac risk assessment. Patient examined at the bedside. Patient presented to the hospital with abdominal pain. Patient was diagnosed with acute cholecystitis and is scheduled for surgical intervention tomorrow. The patient currently denies any chest pain or pressure. She denies shortness of breath. She is able to lay flat in bed without any shortness of breath. She believes that she would be able to walk up a flight of stairs without feeling short of breath. However she does report using a cane to help her ambulate. She reports having a stress test about 2 years ago which she states was normal to her knowledge. * EKG reveals sinus mechanism with no signs of acute ischemia * Laboratory data: WBC 5.6. Hemoglobin 9.7. Platelet count 131. Sodium 139. Potassium 5.2. BUN 24. Creatinine 1.23. TSH 1.510. * Current home cardiac medications include Lipitor 20 mg daily, Coreg 6.25 mg twice a day, Lasix 20 mg daily, aspirin 81 mg daily, and Eliquis 5mg BID 09/26/2022 Patient examined at the bedside. Patient denies chest pain or pressure. Denies SOB. Reports improvement in abdominal pain. Echo reviewed by Dr. Jennings revealing preserved LV systolic function. PHYSICAL EXAM: VITAL SIGNS: Reviewed. GENERAL: Well-developed in no acute distress. HEENT: Head is normocephalic. Pupils are equal, round. Sclerae anicteric. Mucous membranes of the mouth are moist. Neck supple. No JVD or thyromegaly LUNGS: Respirations even and unlabored. Lungs essentially clear to auscultation bilaterally. HEART: Regular rate and rhythm. S1 and S2 heard. ABDOMEN: Soft. Nondistended. Nontender. EXTREMITIES: Normal range of motion. No clubbing or cyanosis. Peripheral pulses intact. Trace lower extremity edema NEUROLOGIC: Awake and alert. Oriented x 3. ASSESSMENT: Acute cholecystitis, surgery following History of DVT on Eliquis, patient denies hx of atrial fibrillation History of kidney transplant Hypertension Hyperlipidemia Diabetes Chronic congestive heart failure, type unknown, echo pending Questionable history of cardiomyopathy, patient unsure, echo reveals preserved e jection fraction PLAN: Continue current cardiac medications Patient underwent HIDA scan this morning. Await further recommendations from general surgery. If conservative management is recommended, resume Eliquis Patient is high risk for surgery from a cardiac standpoint. However, no absolute contraindications. We will sign off. Please reconsult if needed. Nurse practitioner note has been reviewed by physician. Signing provider agrees with the documented findings, assessment, and plan of care. Objective - Vital Signs Vital signs: Vital Signs Temp 97.9 F 09/26/22 10:39 Pulse 67 09/26/22 10:39 Resp 16 09/26/22 10:39 BP 131/72 09/26/22 10:39 Pulse Ox 98 09/26/22 10:39 FiO2 Intake & Output 09/25/22 09/26/22 09/26/22 18:59 06:59 18:59 Intake Total 240 Balance 240 Weight 102.058 kg Intake: Oral 240 Other: Voiding Method Toilet # Voids 2 1 - Labs CBC & Chem 7: 09/26/22 07:08 09/26/22 07:08 Labs: Abnormal Lab Results - Last 24 Hours (Table) 09/25/22 09/25/22 09/25/22 Range/Units 12:15 17:32 21:06 RBC (3.80-5.40) m/uL Hgb (11.4-16.0) gm/dL Hct (34.0-46.0) % MCV (80.0-100.0) fL MCH (25.0-35.0) pg MCHC (31.0-37.0) g/dL RDW (11.5-15.5) % Lymphocytes # (1.0-4.8) k/uL Chloride (98-107) mmol/L BUN (7-17) mg/dL Creatinine (0.52-1.04) mg/dL Glucose (74-99) mg/dL POC Glucose (mg/dL) 123 H 186 H 209 H (70-110) mg/dL Calcium (8.4-10.2) mg/dL AST (14-36) U/L ALT (4-34) U/L Alkaline Phosphatase (38-126) U/L Total Protein (6.3-8.2) g/dL Albumin (3.5-5.0) g/dL 09/26/22 09/26/22 09/26/22 Range/Units 06:31 07:08 07:08 RBC 3.70 L (3.80-5.40) m/uL Hgb 8.3 L (11.4-16.0) gm/dL Hct 29.1 L (34.0-46.0) % MCV 78.8 L (80.0-100.0) fL MCH 22.4 L (25.0-35.0) pg MCHC 28.4 L (31.0-37.0) g/dL RDW 15.9 H (11.5-15.5) % Lymphocytes # 0.7 L (1.0-4.8) k/uL Chloride 112 H (98-107) mmol/L BUN 25 H (7-17) mg/dL Creatinine 1.43 H (0.52-1.04) mg/dL Glucose 169 H (74-99) mg/dL POC Glucose (mg/dL) 181 H (70-110) mg/dL Calcium 8.1 L (8.4-10.2) mg/dL AST 349 H (14-36) U/L ALT 99 H (4-34) U/L Alkaline Phosphatase 350 H (38-126) U/L Total Protein 5.3 L (6.3-8.2) g/dL Albumin 2.8 L (3.5-5.0) g/dL 09/26/22 Range/Units 10:32 RBC (3.80-5.40) m/uL Hgb (11.4-16.0) gm/dL Hct (34.0-46.0) % MCV (80.0-100.0) fL MCH (25.0-35.0) pg MCHC (31.0-37.0) g/dL RDW (11.5-15.5) % Lymphocytes # (1.0-4.8) k/uL Chloride (98-107) mmol/L BUN (7-17) mg/dL Creatinine (0.52-1.04) mg/dL Glucose (74-99) mg/dL POC Glucose (mg/dL) 126 H (70-110) mg/dL Calcium (8.4-10.2) mg/dL AST (14-36) U/L ALT (4-34) U/L Alkaline Phosphatase (38-126) U/L Total Protein (6.3-8.2) g/dL Albumin (3.5-5.0) g/dL Microbiology - Last 24 Hours (Table) 09/24/22 16:56 Blood Culture - Preliminary Blood No Growth after 24 hours 09/24/22 16:56 Blood Culture - Preliminary Blood No Growth after 24 hours
--- NOTE | 2022-09-26 12:07 | P.PN ---
Subjective Progress Note Date: 09/26/22 CHIEF COMPLAINT: Abdominal pain HISTORY OF PRESENT ILLNESS: Patient reports that her right upper quadrant abdominal pain has resolved. She tolerated lunch and dinner last night with no pain. She is undergoing a HIDA scan this morning. She denies any nausea or vomiting. Afebrile. WBC is 5.8 Hgb is down from 9.7 8.3 platelets 150 [id number] potassium 4.5 creatinine is up at 1.43 total bilirubin is 1 LFTs are elevated compared to yesterday. AST is 349 ALT 99 alk phos 350. Echo pending PHYSICAL EXAM: VITAL SIGNS: Reviewed GENERAL: Well-developed in no acute distress. HEENT: No sclera icterus. Extraocular movements grossly intact. Moist buccal mucosa. Head is atraumatic, normocephalic. Hears conversational speech. No nasal drainage. NECK: Supple without lymphadenopathy. CHEST: Non-labored respirations and equal bilateral excursions. CARDIOVASCULAR: Palpable 2+ radial pulses. ABDOMEN: Soft. Nondistended. Nontender. MUSCULOSKELETAL: No clubbing or cyanosis. NEUROLOGIC: No focal or lateralizing signs. Cranial nerves II through XII grossly intact. PSYCH: Appropriate affect. Alert and oriented to person, place and time. SKIN: Well perfused. Good skin turgor. ASSESSMENT: 1. Right upper quadrant abdominal pain with imaging showing evidence of a distended gallbladder and gallstone 2. History of DVT left leg on Eliquis 3. History of kidney transplant 4. Diabetes mellitus 5. Hyperlipidemia 6. Hypertension 7. Chronic congestive heart failure 8. Hyperkalemia resolved 9. Acute kidney injury PLAN: -Follow up on HIDA scan results -Continue antibiotics -Appreciate information services consultant recommendations -Patient is extremely high surgical risk -Recommend conservative management Physician Salon Manager note has been reviewed by physician. Signing provider agrees with the documented findings, assessment, and plan of care. Objective - Vital Signs Vital signs: Vital Signs Temp 97.9 F 09/26/22 10:39 Pulse 67 09/26/22 10:39 Resp 16 09/26/22 10:39 BP 131/72 09/26/22 10:39 Pulse Ox 98 09/26/22 10:39 FiO2 Intake & Output 09/25/22 09/26/22 09/26/22 18:59 06:59 18:59 Intake Total 240 Balance 240 Weight 102.058 kg Intake: Oral 240 Other: Voiding Method Toilet # Voids 2 1 - Labs CBC & Chem 7: 09/26/22 07:08 09/26/22 07:08 Labs: Abnormal Lab Results - Last 24 Hours (Table) 09/25/22 09/25/22 09/25/22 Range/Units 12:15 17:32 21:06 RBC (3.80-5.40) m/uL Hgb (11.4-16.0) gm/dL Hct (34.0-46.0) % MCV (80.0-100.0) fL MCH (25.0-35.0) pg MCHC (31.0-37.0) g/dL RDW (11.5-15.5) % Lymphocytes # (1.0-4.8) k/uL Chloride (98-107) mmol/L BUN (7-17) mg/dL Creatinine (0.52-1.04) mg/dL Glucose (74-99) mg/dL POC Glucose (mg/dL) 123 H 186 H 209 H (70-110) mg/dL Calcium (8.4-10.2) mg/dL AST (14-36) U/L ALT (4-34) U/L Alkaline Phosphatase (38-126) U/L Total Protein (6.3-8.2) g/dL Albumin (3.5-5.0) g/dL 09/26/22 09/26/22 09/26/22 Range/Units 06:31 07:08 07:08 RBC 3.70 L (3.80-5.40) m/uL Hgb 8.3 L (11.4-16.0) gm/dL Hct 29.1 L (34.0-46.0) % MCV 78.8 L (80.0-100.0) fL MCH 22.4 L (25.0-35.0) pg MCHC 28.4 L (31.0-37.0) g/dL RDW 15.9 H (11.5-15.5) % Lymphocytes # 0.7 L (1.0-4.8) k/uL Chloride 112 H (98-107) mmol/L BUN 25 H (7-17) mg/dL Creatinine 1.43 H (0.52-1.04) mg/dL Glucose 169 H (74-99) mg/dL POC Glucose (mg/dL) 181 H (70-110) mg/dL Calcium 8.1 L (8.4-10.2) mg/dL AST 349 H (14-36) U/L ALT 99 H (4-34) U/L Alkaline Phosphatase 350 H (38-126) U/L Total Protein 5.3 L (6.3-8.2) g/dL Albumin 2.8 L (3.5-5.0) g/dL 09/26/22 Range/Units 10:32 RBC (3.80-5.40) m/uL Hgb (11.4-16.0) gm/dL Hct (34.0-46.0) % MCV (80.0-100.0) fL MCH (25.0-35.0) pg MCHC (31.0-37.0) g/dL RDW (11.5-15.5) % Lymphocytes # (1.0-4.8) k/uL Chloride (98-107) mmol/L BUN (7-17) mg/dL Creatinine (0.52-1.04) mg/dL Glucose (74-99) mg/dL POC Glucose (mg/dL) 126 H (70-110) mg/dL Calcium (8.4-10.2) mg/dL AST (14-36) U/L ALT (4-34) U/L Alkaline Phosphatase (38-126) U/L Total Protein (6.3-8.2) g/dL Albumin (3.5-5.0) g/dL Microbiology - Last 24 Hours (Table) 09/24/22 16:56 Blood Culture - Preliminary Blood No Growth after 24 hours 09/24/22 16:56 Blood Culture - Preliminary Blood No Growth after 24 hours
[2022-09-26 12:24] LABS: Glucose,Whole Blood 126 mg/dL (70-110)
--- NOTE | 2022-09-26 12:28 | CA ---
Transthoracic Echo Report Name: Ratna Yang Age: 57 Gender: F : 1965 Exam Date: 09/25/2022 11:35 Exam Location: [facility] Ht (in): 62 Wt (lb): 225 Ordering Physician: Natalia Foreman MD Attending/Referring Phys: Kellen WHITMAN Editor Managing Director Yana Ortiz RDCS Procedure CPT: Indications: abnormal ekg, chest pain Cardiac Hx: Technical Quality: Contrast 1: Total Dose (mL): Contrast 2: Total Dose (mL): MEASUREMENTS (Male / Female) Normal Values 2D ECHO LV Diastolic Diameter PLAX 3.6 cm 4.2 - 5.9 / 3.9 - 5.3 cm LV Systolic Diameter PLAX 1.4 cm IVS Diastolic Thickness 1.5 cm 0.6 - 1.0 / 0.6 - 0.9 cm LVPW Diastolic Thickness 1.1 cm 0.6 - 1.0 / 0.6 - 0.9 cm LV Relative Wall Thickness 0.7 RV Internal Dim ED PLAX 3.1 cm LA Volume 48.2 cm??? 18 - 58 / 22 - 52 cm??? M-MODE Aortic Root Diameter MM 2.9 cm LA Systolic Diameter MM 3.5 cm LA Ao Ratio MM 1.2 AV Cusp Separation MM 1.9 cm DOPPLER AV Peak Velocity 149.2 cm/s AV Peak Gradient 8.9 mmHg AV Mean Velocity 107.0 cm/s AV Mean Gradient 5.1 mmHg AV Velocity Time Integral 33.8 cm LVOT Peak Velocity 104.4 cm/s LVOT Peak Gradient 4.4 mmHg MV Area PHT 3.5 cm??? Mitral E Point Velocity 119.5 cm/s Mitral A Point Velocity 88.7 cm/s Mitral E to A Ratio 1.3 MV Deceleration Time 217.4 ms MV E' Velocity 5.9 cm/s Mitral E to MV E' Ratio 20.3 TR Peak Velocity 286.2 cm/s TR Peak Gradient 32.8 mmHg Right Ventricular Systolic Press 37.8 mmHg FINDINGS Left Ventricle Mild increased left ventricular wall thickness. Left ventricular ejection fraction 55-60%. Right Ventricle Normal right ventricular function and size. Right Atrium Normal right atrial size. Left Atrium Mildly dilated left atrium. Mitral Valve Mild mitral annular calcification mainly of the posterior annulus. No mitral regurgitation. Aortic Valve Mild aortic sclerosis. No aortic stenosis. Tricuspid Valve Trace tricuspid regurgitation. RVSP 37. Pulmonic Valve Trace pulmonic regurgitation. Pericardium No pericardial effusion. Aorta CONCLUSIONS Mild increased left ventricular wall thickness. Left ventricular ejection fraction 55-60% Mildly dilated left atrium Mild mitral calcification Mild aortic sclerosis without aortic stenosis Trace tricuspid regurgitation RVSP 37 Previewed by: Dr. Arvind Jennings DO (Electronically Signed) Final Date: 26 September 2022 12:28
--- NOTE | 2022-09-26 12:36 | NM ---
Nuclear medicine hepatobiliary scan. HISTORY: Pain. DOSAGE: The patient received 4.6 mCi of Technetium 99m Choletec. FINDINGS: There is venous hepatic extraction. The gallbladder is not seen at 4 hour delayed images. The biliary tree also not identified. IMPRESSION: 1. Absence of gallbladder filling at 4 hours suggests cholecystitis. 2. Heterogeneous pattern of the liver correlate with liver function studies.
[2022-09-26] MEDS: SODIUM CHLORIDE 0.9% 1,000 ML IV SCH ×2 (12:50→18:01)
[2022-09-26] MEDS: LEVOFLOXACIN 750MG-D5W PMX 750 MG in DEXTROSE/WATER 1 150ML.BAG IVPB SCH (12:50)
--- NOTE | 2022-09-26 14:11 | P.PN ---
Progress Note - Text Progress Note Date: 09/26/22 HIDA scan independent review confirming cystic duct obstruction, acute cholecystitis. Echocardiogram report reviewed demonstrating ejection fraction over 55% without wall motion abnormality. Patient very high surgical risk due to pre-existing heart disease, thrombosis, renal transplant status. Robotic cholecystectomy described
--- NOTE | 2022-09-26 14:41 | P.HPADDEND ---
H&P Addendum H&P Addendum Date: 09/26/22 Notified that patient had lunch immediately after HIDA scan. Surgery canceled today due to diet. Patient to be rescheduled with another provider when nothing by mouth
--- NOTE | 2022-09-26 15:38 | P.PN ---
Subjective Progress Note Date: 09/26/22 Patient seen and examined at bedside. Patient just returned from having her HIDA scan. Patient denied chest pain shortness breath nausea vomiting fevers and chills. Patient states that her abdominal pain has improved. Per documentation surgery has been canceled because patient ate after her HIDA scan. Patient will be rescheduled with another provider for surgery. Objective - Vital Signs Vital signs: Vital Signs Temp 97.9 F 09/26/22 10:39 Pulse 67 09/26/22 10:39 Resp 16 09/26/22 10:39 BP 131/72 09/26/22 10:39 Pulse Ox 98 09/26/22 10:39 FiO2 Intake & Output 09/25/22 09/26/22 09/26/22 18:59 06:59 18:59 Intake Total 240 480 Balance 240 480 Weight 102.058 kg Intake: Oral 240 480 Other: Voiding Method Toilet # Voids 2 1 - Exam General: [non toxic], [no distress], [appears at stated age] Derm: [warm], [dry] Head: [atraumatic], [normocephalic], [symmetric] Eyes: [EOMI], [no lid lag], [anicteric sclera] Mouth: [no lip lesion], [mucus membranes moist] Cardiovascular: [S1S2 reg], [no murmur], [positive posterior tibial pulse bilateral], Lungs: [CTA bilateral], [no rhonchi, no rales] , [no accessory muscle use] Abdominal: [soft], [ tender to palpation], [no guarding], [no appreciable organomegaly] Ext: [no gross muscle atrophy], [no edema], [no contractures] Neuro: [ CN II-XI grossly intact], [no focal neuro deficits] Psych: [Alert], [oriented], [appropriate affect] - Labs CBC & Chem 7: 09/26/22 07:08 09/26/22 07:08 Labs: Abnormal Lab Results - Last 24 Hours (Table) 09/25/22 09/25/22 09/26/22 Range/Units 17:32 21:06 06:31 RBC (3.80-5.40) m/uL Hgb (11.4-16.0) gm/dL Hct (34.0-46.0) % MCV (80.0-100.0) fL MCH (25.0-35.0) pg MCHC (31.0-37.0) g/dL RDW (11.5-15.5) % Lymphocytes # (1.0-4.8) k/uL Chloride (98-107) mmol/L BUN (7-17) mg/dL Creatinine (0.52-1.04) mg/dL Glucose (74-99) mg/dL POC Glucose (mg/dL) 186 H 209 H 181 H (70-110) mg/dL Calcium (8.4-10.2) mg/dL AST (14-36) U/L ALT (4-34) U/L Alkaline Phosphatase (38-126) U/L Total Protein (6.3-8.2) g/dL Albumin (3.5-5.0) g/dL 09/26/22 09/26/22 09/26/22 Range/Units 07:08 07:08 10:32 RBC 3.70 L (3.80-5.40) m/uL Hgb 8.3 L (11.4-16.0) gm/dL Hct 29.1 L (34.0-46.0) % MCV 78.8 L (80.0-100.0) fL MCH 22.4 L (25.0-35.0) pg MCHC 28.4 L (31.0-37.0) g/dL RDW 15.9 H (11.5-15.5) % Lymphocytes # 0.7 L (1.0-4.8) k/uL Chloride 112 H (98-107) mmol/L BUN 25 H (7-17) mg/dL Creatinine 1.43 H (0.52-1.04) mg/dL Glucose 169 H (74-99) mg/dL POC Glucose (mg/dL) 126 H (70-110) mg/dL Calcium 8.1 L (8.4-10.2) mg/dL AST 349 H (14-36) U/L ALT 99 H (4-34) U/L Alkaline Phosphatase 350 H (38-126) U/L Total Protein 5.3 L (6.3-8.2) g/dL Albumin 2.8 L (3.5-5.0) g/dL 09/26/22 Range/Units 12:23 RBC (3.80-5.40) m/uL Hgb (11.4-16.0) gm/dL Hct (34.0-46.0) % MCV (80.0-100.0) fL MCH (25.0-35.0) pg MCHC (31.0-37.0) g/dL RDW (11.5-15.5) % Lymphocytes # (1.0-4.8) k/uL Chloride (98-107) mmol/L BUN (7-17) mg/dL Creatinine (0.52-1.04) mg/dL Glucose (74-99) mg/dL POC Glucose (mg/dL) 126 H (70-110) mg/dL Calcium (8.4-10.2) mg/dL AST (14-36) U/L ALT (4-34) U/L Alkaline Phosphatase (38-126) U/L Total Protein (6.3-8.2) g/dL Albumin (3.5-5.0) g/dL Microbiology - Last 24 Hours (Table) 09/24/22 16:56 Blood Culture - Preliminary Blood No Growth after 24 hours 09/24/22 16:56 Blood Culture - Preliminary Blood No Growth after 24 hours Assessment and Plan Assessment: 1. Abdominal pain secondary to cholecystitis Patient will be scheduled for robotic cholecystectomy General surgery recommendations appreciated HIDA scan showed absence of gallbladder filling at 4 hours suggesting cholecystitis with a heterogeneous pattern of the liver Continue IV fluids Continue IV antibiotics Levaquin and Flagyl Pain control morphine when necessary Vitals every 4 hours antiemetic Zofran when necessary admit to telemetry 2. History of DVT due to Covid with questionable history of A. fib due to Covid Cardiology recommendations appreciated Eliquis held Resume beta driss with parameters 3. History of renal transplant due to ESRD From diabetes Resume home medications 4. Insulin-dependent diabetes mellitus Check blood sugars every 4 hours since patient is nothing by mouth Insulin sliding scale Resume home insulin 5. Hypertension, hyperlipidemia, and hypothyroid Resume home medications 6. Debility Fall precautions 7. GI DVT prophylaxis 8. A.m. labs Disposition: Patient needs rehab versus home with home care Patient will require greater than 2 midnight hospital stay Patient is a full code
--- NOTE | 2022-09-26 16:02 | P.CONS ---
History of Present Illness - Reason for Consult Consult date: 09/26/22 Possible choledocholithiasis Requesting physician: Lorraine Herbert - Chief Complaint Abdominal pain - History of Present Illness This a pleasant 57-year-old female with a past medical history of ABDs mellitus, hyperlipidemia, hypertension and thyroid disorder as well as kidney transplant in 2011 who was a transfer from [facility] for right upper quadrant pain on 09/24/2022. She was admitted for acute cholecystitis. Patient had imaging done at [facility] including a abdominal ultrasound and CT of the abdomen and pelvis. CT abdomen and pelvis without contrast reported a distended gallbladder containing calculi in the neck or proximal cystic duct. Mild stranding of pericholecystic fat. Acute cholecystitis suspected. Gallbladder ultrasound reported as a limited exam with a distended gallbladder without other specific signs of acute cholecystitis. Steatosis. He is currently reporting no pain. States the pain was only for 1 day when she initially went into the emergency department at [facility] but by the time she was transferred here she was starting to feel better. She states she has not had similar pain in the past but has had some upper abdominal discomfort which she felt was just acid reflux. She was started on Levaquin and Flagyl. Gastroenterology was consulted for possible choledochal lithiasis as her LFTs have been rising. HIDA scan performed today reporting cholecystitis, heterogeneous pattern of the liver correlate with liver function studies. Current labs WBC 5.8 hemoglobin 8.3 hematocrit 29 platelet count 158,000 sodium 139 potassium 4.5 BUN 25 creatinine 1.4 glucose 169 total bilirubin 1.0 AST 349 ALT 99 a lkaline phosphatase 350 Review of Systems REVIEW OF SYSTEMS: CARDIOPULMONARY: No chest pain or shortness of breath. Gastrointestinal: patient had reported right upper quadrant pain 2-3 days ago now resolved. No nausea or vomiting. No hematemesis, coffee-ground emesis. No rectal bleeding, or melena. GENITOURINARY: No dysuria or hematuria. MUSCULOSKELETAL: Reports normal range of motion. SKIN: No rashes. No jaundice. ENDOCRINE: No chills, fevers. No excessive weight gain or loss. No polydipsia or polyuria. PSYCHIATRIC: Unremarkable. NEUROLOGY: No change in mental status. Denies dizziness, headache. ENT: Vision unremarkable. CONSTITUTIONAL: No recent weight loss. No fever, chills, night sweats. Past Medical History Past Medical History: Diabetes Mellitus, Hyperlipidemia, Hypertension, Thyroid Disorder History of Any Multi-Drug Resistant Organisms: None Reported Additional Past Surgical History / Comment(s): kidney transplant in 2011 Past Anesthesia/Blood Transfusion Reactions: No Reported Reaction Past Psychological History: No Psychological Hx Reported Smoking Status: Never smoker Past Alcohol Use History: None Reported Past Drug Use History: None Reported Medications and Allergies Home Medications Medication Instructions Recorded Confirmed Type Atorvastatin [Lipitor] 20 mg PO DAILY 05/02/21 09/24/22 History Furosemide [Lasix] 20 mg PO DAILY 05/02/21 09/24/22 History Insulin Aspart [NovoLOG Flexpen] See Protocol SQ AC-TID 05/02/21 09/24/22 History Levothyroxine Sodium [Synthroid] 75 mcg PO DAILY 05/02/21 09/24/22 History Magnesium Oxide 400 mg PO DAILY 05/02/21 09/24/22 History Potassium Chloride [Potassium 10 meq PO DAILY 05/02/21 09/24/22 History Chloride ER] Albuterol Sulfate [Albuterol 2 puff PO RT-Q6H PRN 09/24/22 09/24/22 History Sulfate Hfa] Apixaban [Eliquis] 5 mg PO BID 09/24/22 09/24/22 History Aspirin EC [Ecotrin Low Dose] 81 mg PO DAILY 09/24/22 09/24/22 History Insulin Detemir [Levemir Flextouch 20 units SQ HS 09/24/22 09/24/22 History Pen] Ondansetron [Zofran] 4 mg PO Q8HR PRN 09/24/22 09/24/22 History Tacrolimus [Prograf] 2 mg PO BID 09/24/22 09/24/22 History carvediloL [Coreg] 6.25 mg PO BID 09/24/22 09/24/22 History mycophenolate mofetiL [Cellcept] 1,500 mg PO BID 09/24/22 09/24/22 History predniSONE 5 mg PO DAILY 09/24/22 09/24/22 History Allergies Allergy/AdvReac Type Severity Reaction Status Date / Time clindamycin Allergy Rash/Hives Verified 09/24/22 15:47 Physical Exam Vitals: Vital Signs Temp Pulse Resp BP Pulse Ox 09/26/22 10:39 97.9 F 67 16 131/72 98 09/26/22 00:19 99.0 F 75 17 153/93 95 09/25/22 21:04 98.8 F 79 16 172/76 98 09/25/22 15:00 98.1 F 68 16 148/79 96 Intake and Output 09/25/22 09/26/22 09/26/22 22:59 06:59 14:59 Intake Total 240 480 Balance 240 480 Intake: Oral 240 480 Other: Voiding Method Toilet Toilet # Voids 1 1 General appearance: The patient is alert, oriented, appears in no acute distress. Morbidly obese. HET: Head is normocephalic and atraumatic. Conjunctiva pink. Sclera anicteric. Neck: Supple without lymphadenopathy. Trachea midline. Heart: S1 S2. Regular rate and rhythm. Lungs: Clear to auscultation. Abdomen: Soft, nontender, nondistended with bowel sounds. No guarding or rigidity. Skin: No rashes. No jaundice. Extremities: Normal skin color and turgor. No pedal edema. Neurological: No focal deficits. Alert and oriented x3. Results CBC & Chem 7: 09/26/22 07:08 09/26/22 07:08 Labs: Abnormal Lab Results - Last 24 Hours (Table) 09/25/22 09/25/22 09/26/22 Range/Units 17:32 21:06 06:31 RBC (3.80-5.40) m/uL Hgb (11.4-16.0) gm/dL Hct (34.0-46.0) % MCV (80.0-100.0) fL MCH (25.0-35.0) pg MCHC (31.0-37.0) g/dL RDW (11.5-15.5) % Lymphocytes # (1.0-4.8) k/uL Chloride (98-107) mmol/L BUN (7-17) mg/dL Creatinine (0.52-1.04) mg/dL Glucose (74-99) mg/dL POC Glucose (mg/dL) 186 H 209 H 181 H (70-110) mg/dL Calcium (8.4-10.2) mg/dL AST (14-36) U/L ALT (4-34) U/L Alkaline Phosphatase (38-126) U/L Total Protein (6.3-8.2) g/dL Albumin (3.5-5.0) g/dL 09/26/22 09/26/22 09/26/22 Range/Units 07:08 07:08 10:32 RBC 3.70 L (3.80-5.40) m/uL Hgb 8.3 L (11.4-16.0) gm/dL Hct 29.1 L (34.0-46.0) % MCV 78.8 L (80.0-100.0) fL MCH 22.4 L (25.0-35.0) pg MCHC 28.4 L (31.0-37.0) g/dL RDW 15.9 H (11.5-15.5) % Lymphocytes # 0.7 L (1.0-4.8) k/uL Chloride 112 H (98-107) mmol/L BUN 25 H (7-17) mg/dL Creatinine 1.43 H (0.52-1.04) mg/dL Glucose 169 H (74-99) mg/dL POC Glucose (mg/dL) 126 H (70-110) mg/dL Calcium 8.1 L (8.4-10.2) mg/dL AST 349 H (14-36) U/L ALT 99 H (4-34) U/L Alkaline Phosphatase 350 H (38-126) U/L Total Protein 5.3 L (6.3-8.2) g/dL Albumin 2.8 L (3.5-5.0) g/dL 09/26/22 Range/Units 12:23 RBC (3.80-5.40) m/uL Hgb (11.4-16.0) gm/dL Hct (34.0-46.0) % MCV (80.0-100.0) fL MCH (25.0-35.0) pg MCHC (31.0-37.0) g/dL RDW (11.5-15.5) % Lymphocytes # (1.0-4.8) k/uL Chloride (98-107) mmol/L BUN (7-17) mg/dL Creatinine (0.52-1.04) mg/dL Glucose (74-99) mg/dL POC Glucose (mg/dL) 126 H (70-110) mg/dL Calcium (8.4-10.2) mg/dL AST (14-36) U/L ALT (4-34) U/L Alkaline Phosphatase (38-126) U/L Total Protein (6.3-8.2) g/dL Albumin (3.5-5.0) g/dL Microbiology - Last 24 Hours (Table) 09/24/22 16:56 Blood Culture - Preliminary Blood No Growth after 24 hours 09/24/22 16:56 Blood Culture - Preliminary Blood No Growth after 24 hours Assessment and Plan (1) Elevated LFTs Narrative/Plan: 57-year-old female who is transferred to this hospital from an outside facility concerning for acute cholecystitis. Patient has had trending elevation in her LFTs and a general surgery was concern for possible choledochal lithiasis. Patient's pain has completely resolved. She underwent HIDA scan today that shows acute cholecystitis and underlying hepatic steatosis. Likely elevation in LFTs is reactive to cholecystitis and possible cystic duct stone. No plans on ERCP. Continue with recommendations from general surgery. Current Visit: Yes Status: Acute Code(s): R79.89 - OTHER SPECIFIED ABNORMAL FINDINGS OF BLOOD CHEMISTRY SNOMED Code(s): 314883381 (2) Acute cholecystitis Narrative/Plan: Gen. surgery following closely Current Visit: Yes Status: Acute Code(s): K81.0 - ACUTE CHOLECYSTITIS SNOMED Code(s): 90208077 Plan: 1. Continue symptomatic and supportive care 2. Diet per recommendations from general surgery 3. Repeat CMP in the morning 4. Outside imaging reports reviewed, HIDA scan reviewed 5. Elevated LFTs likely reactive to cholecystitis and possible cystic duct stone. No plans for ERCP Thank you for this consultation, we will sign off at this time. Thank you for allowing us to participate in the care of the patient, the GI service will sign off, gastroenterology will not be available at the hospital this weekend and through next week. If further evaluation by gastroenterology is required the patient will need transfer as per the primary team's discretion. Dr. Oxana Wynn I agree with the dictator's note, documented as a scribe by Elizabeth Rosales.
[2022-09-26 17:44] LABS: Glucose,Whole Blood 292 mg/dL (70-110)
[2022-09-26] MEDS: polyethylene glycoL 3350 17 GM POWD.PACK PO SCH (18:00)
[2022-09-26 20:10] LABS: Glucose,Whole Blood 252 mg/dL (70-110)
[2022-09-26] MEDS: INSULIN DETEMIR (LEVEMIR) 100 UNIT/ML SYR SQ SCH (20:10)
[2022-09-27] MEDS: SODIUM CHLORIDE 0.9% 1,000 ML IV SCH ×2 (00:37→21:34)
[2022-09-27] MEDS: metroNIDAZOLE-NS PMX 500 MG in SALINE 1 100ML.BAG IVPB SCH ×3 (00:37→17:50)
[2022-09-27 05:12] LABS: HCT 30.8 % (34.0-46.0); HGB 8.6 gm/dL (11.4-16.0); Hypochromasia Marked; MCH 22.3 pg (25.0-35.0); MCV 79.9 fL (80.0-100.0); Mean Platelet Volume 8.3; Platelet Count 182 k/uL (150-450); RBC 3.85 m/uL (3.80-5.40); RDW 15.9 % (11.5-15.5); WBC 5.5 k/uL (3.8-10.6)
[2022-09-27 05:26] LABS: ALT 110 U/L (4-34); AST 173 U/L (14-36); African American GFR (CKD) 62 (>60 ml/min/1.73 sqM); Albumin 3.1 g/dL (3.5-5.0); Albumin/Globulin Ratio 1.2; Alkaline Phosphatase 343 U/L (38-126); Anion Gap 6 mmol/L; Blood Urea Nitrogen 22 mg/dL (7-17); Calcium 8.5 mg/dL (8.4-10.2); Carbon Dioxide 20 mmol/L (22-30); Chloride 114 mmol/L (98-107); Globulin 2.6 g/dL; Glucose 158 mg/dL (74-99); Non-African American GFR(CKD) 53 (>60 ml/min/1.73 sqM); Potassium 4.5 mmol/L (3.5-5.1); Sodium 140 mmol/L (137-145); Total Bilirubin 0.8 mg/dL (0.2-1.3); Total Protein 5.7 g/dL (6.3-8.2)
[2022-09-27 06:31] LABS: Glucose,Whole Blood 173 mg/dL (70-110)
[2022-09-27] MEDS: LEVOTHYROXINE 75 MCG TAB PO SCH (06:33)
[2022-09-27] MEDS: ONDANSETRON 4 MG/2 ML VIAL IVP PRN ×2 (06:33→16:56)
[2022-09-27] MEDS: carvediloL 3.125 MG TAB PO SCH ×2 (06:33→17:50)
[2022-09-27] MEDS: INSULIN ASPART (NovoLOG) 100 UNIT/ML VIAL SQ SCH ×4 (06:42→21:28)
[2022-09-27] MEDS: ATORVASTATIN 20 MG TAB PO SCH (08:16)
[2022-09-27] MEDS: PANTOPRAZOLE 40 MG/10 ML VIAL IVP SCH (08:16)
[2022-09-27] MEDS: MAGNESIUM OXIDE 400 MG TAB PO SCH (08:16)
[2022-09-27] MEDS: TACROLIMUS 1 MG CAP PO SCH ×2 (08:17→21:33)
[2022-09-27] MEDS: predniSONE 5 MG TAB PO SCH ×2 (08:18→14:19)
[2022-09-27] MEDS: polyethylene glycoL 3350 17 GM POWD.PACK PO SCH (08:20)
--- NOTE | 2022-09-27 08:50 | P.NPCON ---
History of Present Illness - Reason for Consult acute renal failure, chronic renal failure - History of Present Illness Reason for consultation: Acute allograft dysfunction and renal transplant status History of present illness: Patient is a 57-year-old female seen in renal consultation for acute allograft dysfunction and renal transplant management. Patient received living related renal allograft in 2011 at [facility]. Patient is maintained on tacrolimus, CellCept as well as prednisone outpatient. Patient has chronic kidney disease stage IIIa with baseline creatinine 1.1-1.2. Creatinine on admission was 1.04 and peaked at 1.43. It is down to 1.16 today. She is currently receiving normal saline at 100 mL an hour. Patient presented to the hospital due to abdominal pain. She initially went to [facility] and subsequently transferred here. She was having severe right upper quadrant pain along with nausea. Patient states the pain is currently resolved. She underwent imaging studies which showed dilated gallbladder with evidence of calcification in the neck or proximal duct. She's being followed by surgery and is scheduled for lumbar scopic cholecystectomy today. HIDA scan was also done which was suggestive of cholecystitis. She denies hematuria or dysuria. No vomiting. No chest pain or shortness of breath. Hemodynamically stable. Vital signs are stable. General: No acute distress. HEENT: Head exam is unremarkable. LUNGS: Breath sounds decreased. HEART: Rate and Rhythm are regular. ABDOMEN: Soft, obese. No distention. EXTREMITITES: 1+ edema left lower. Trace edema right lower extremity. Past Medical History Past Medical History: Diabetes Mellitus, Hyperlipidemia, Hypertension, Thyroid Disorder History of Any Multi-Drug Resistant Organisms: None Reported Additional Past Surgical History / Comment(s): kidney transplant in 2011 Past Anesthesia/Blood Transfusion Reactions: No Reported Reaction Past Psychological History: No Psychological Hx Reported Smoking Status: Never smoker Past Alcohol Use History: None Reported Past Drug Use History: None Reported Medications and Allergies Home Medications Medication Instructions Recorded Confirmed Type RX: Atorvastatin [Lipitor] 20 mg PO DAILY 05/02/21 09/24/22 History RX: Furosemide [Lasix] 20 mg PO DAILY 05/02/21 09/24/22 History RX: Insulin Aspart [NovoLOG See Protocol SQ AC-TID 05/02/21 09/24/22 History Flexpen] RX: Levothyroxine Sodium 75 mcg PO DAILY 05/02/21 09/24/22 History [Synthroid] RX: Magnesium Oxide 400 mg PO DAILY 05/02/21 09/24/22 History RX: Potassium Chloride [Potassium 10 meq PO DAILY 05/02/21 09/24/22 History Chloride ER] Albuterol Sulfate [Albuterol 2 puff PO RT-Q6H PRN 09/24/22 09/24/22 History Sulfate Hfa] Apixaban [Eliquis] 5 mg PO BID 09/24/22 09/24/22 History Aspirin EC [Ecotrin Low Dose] 81 mg PO DAILY 09/24/22 09/24/22 History Insulin Detemir [Levemir Flextouch 20 units SQ HS 09/24/22 09/24/22 History Pen] Ondansetron [Zofran] 4 mg PO Q8HR PRN 09/24/22 09/24/22 History RX: Tacrolimus [Prograf] 2 mg PO BID 09/24/22 09/24/22 History RX: predniSONE 5 mg PO DAILY 09/24/22 09/24/22 History carvediloL [Coreg] 6.25 mg PO BID 09/24/22 09/24/22 History mycophenolate mofetiL [Cellcept] 1,500 mg PO BID 09/24/22 09/24/22 History Allergies Allergy/AdvReac Type Severity Reaction Status Date / Time clindamycin Allergy Rash/Hives Verified 09/24/22 15:47 Physical Exam Vitals: Vital Signs Temp Pulse Resp BP Pulse Ox 09/27/22 06:27 98.4 F 76 16 146/73 96 09/27/22 02:22 98.1 F 72 18 169/68 98 09/26/22 20:00 18 09/26/22 19:15 98.3 F 69 18 158/68 98 09/26/22 18:05 98.2 F 68 18 110/73 98 09/26/22 15:00 98.2 F 69 16 117/67 95 09/26/22 10:39 97.9 F 67 16 131/72 98 Intake and Output 09/26/22 09/27/22 09/27/22 22:59 06:59 14:59 Intake Total 0 Balance 0 Intake: Oral 0 Other: Voiding Method Toilet # Voids 1 2 # Bowel Movements 2 Results - Lab Results Most recent lab results Calcium 8.5 mg/dL (8.4-10.2) 09/27/22 04:53 Magnesium 2.0 mg/dL (1.6-2.3) 09/24/22 16:56 09/27/22 04:53 09/27/22 04:53 Assessment and Plan Plan: Assessment: 1. Acute allograft dysfunction most to prerenal improved with IV hydration. Creatinine peaked at 1.4 this admission and is 1.16 today. 2. Status post living related renal allograft in 2011 at [facility]. 3. Chronic kidney disease stage IIIa, baseline creatinine 1.1-1.2. 4. Acute cholecystitis. Scheduled for laparoscopic cholecystectomy today. 5. Anemia. Rule out iron deficiency. 6. Non-gap metabolic acidosis secondary to IV fluids. 7. Hypertension with chronic any disease. Stable. 8. Diabetes mellitus. Plan: Decrease rate of normal saline to 50 mL an hour. Maintain antirejection medications. Check a Prograf level. Avoid nephrotoxins. Check iron studies. Continue to monitor renal function and urine output. Thank you for the consultation. I will continue to follow the patient with you during her hospital stay.
[2022-09-27] MEDS ORDERED: HEPARIN SODIUM,PORCINE/PF 5,000 UNIT/0.5 ML SYRINGE SQ STA (08:55)
[2022-09-27] MEDS ORDERED: polyethylene glycoL 3350 17 GM POWD.PACK PO SCH (09:00)
[2022-09-27] MEDS ORDERED: HEPARIN SODIUM,PORCINE 5,000 UNIT/ML 1 ML VIAL SQ ONE (09:05)
[2022-09-27] MEDS ORDERED: MIDAZOLAM 2 MG/2 ML VIAL IV ONE (09:18)
[2022-09-27] MEDS ORDERED: fentaNYL (PF) 50 MCG/ML 2 ML AMP ONE (09:53)
[2022-09-27] MEDS ORDERED: PROPOFOL 10 MG/ML 20 ML VIAL IV ONE (09:53)
[2022-09-27] MEDS ORDERED: ONDANSETRON 4 MG/2 ML VIAL ONE (09:53)
[2022-09-27] MEDS ORDERED: KETOROLAC 15 MG/ML 1 ML VIAL ONE (09:53)
[2022-09-27] MEDS ORDERED: SODIUM CHLORIDE 0.9% 50 ML with ceFAZolin 2,000 MG IV ONE ×2 (09:53)
[2022-09-27] MEDS ORDERED: LACTATED RINGERS 300 ML IV ONE (09:53)
[2022-09-27] MEDS ORDERED: SUCCINYLCHOLINE CHLORIDE 200 MG/10 ML VIAL IV ONE (09:53)
[2022-09-27] MEDS ORDERED: SUGAMMADEX SODIUM 200 MG/2 ML SDV IV ONE (09:53)
[2022-09-27] MEDS ORDERED: BUPIVACAIN-EPI 0.25%-1:200,000 30 ML VIAL SQ ONE (10:10)
[2022-09-27] MEDS ORDERED: LACTATED RINGERS 1,000 ML IV ONE (10:14)
[2022-09-27] MEDS ORDERED: HYDROcodone/APAP 5-325MG 1 EACH TAB PO PRN (10:52)
[2022-09-27] MEDS ORDERED: HYDROmorphone 1 MG/ML 1 ML SYRINGE IVP PRN (10:52)
--- NOTE | 2022-09-27 10:56 | P.OP ---
Date of Procedure: 09/27/22 Procedure(s) Performed: PREOPERATIVE DIAGNOSIS: Acute cholecystitis POSTOPERATIVE DIAGNOSIS: Same PROCEDURE: Laparoscopic cholecystectomy SURGEON: [place] EBL: Minimal see anesthesia record ANESTHESIA: Gen. COMPLICATIONS: None OPERATIVE PROCEDURE: The patient was brought and placed on the operating room table in the supine position. The patient was placed under general anesthesia at that time. The abdomen was prepped and draped in the usual sterile fashion. A small vertical infraumbilical incision was made. The fascia was grasped with the Ervin forceps. The fascia was retracted anteriorly. The Veress needle was advanced into the peritoneal cavity. The saline drop test was normal. Insufflation took place up to 15 mmHg. A 5 mm optical trocar was advanced and the peritoneal cavity. 2 additional 5 mm trochars were placed in the right upper quadrant under direct visualization. A 12 mm trocar was advanced into the epigastric incision site. The gallbladder was acutely inflamed with edematous erythematous wall. Dissection between the pericolonic fat and the gallbladder was dissected using blunt dissection and LigaSure. The gallbladder was retracted superiorly and laterally. The peritoneum overlying the infundibulum was bluntly dissected. The patient's cystic duct was visualized. The junction between the cystic duct common and hepatic duct was identified. The critical view of safety was achieved after blunt dissection. The cystic duct was then divided after placement of 2-0 Ethibond stitch to ligate the duct on the patient's side. Following that a clip was placed on both the specimen and the patient's side. The cystic duct was divided. The cystic artery was identified and clipped as well. A small vessel was seen along the gallbladder fossa and clipped as well. The gallbladder was then removed from the liver bed using electrocautery and the LigaSure device. The gallbladder was then removed from the epigastric trocar site with an Endo Catch bag. The gallbladder fossa was irrigated with saline. There was no evidence of any bleeding or biliary drainage seen. The fascia at the 12 millimeter site was closed using a Kb- [place]da[place] 0 Vicryl stitch. The trochars were then removed. The skin at all 4 sites was closed using a 4-0 Monocryl stitch. Skin glue was utilized on the incision sites. At the end of this procedure the sponge and needle counts were correct. DISPOSITION: Stable to the recovery room
[2022-09-27 11:19] LABS: Glucose,Whole Blood 107 mg/dL (70-110)
[2022-09-27 12:03] LABS: Glucose,Whole Blood 102 mg/dL (70-110)
--- NOTE | 2022-09-27 14:42 | P.PN ---
Subjective Progress Note Date: 09/27/22 seen and examined at bedside. Patient states that she feels a little loopy after surgery. She tolerated procedure well complications. Patient states that she has some postsurgical abdominal pain. Patient denies chest pain or shortness of breath. Objective - Vital Signs Vital signs: Vital Signs Temp 97 F L 09/27/22 11:05 Pulse 65 09/27/22 11:19 Resp 17 09/27/22 11:19 BP 163/69 09/27/22 11:19 Pulse Ox 95 09/27/22 11:19 FiO2 Intake & Output 09/26/22 09/27/22 09/27/22 18:59 06:59 18:59 Intake Total 480 0 940 Output Total 5 Balance 480 0 935 Intake: IV 850 Oral 480 0 90 Output: Estimated Blood Loss 5 Other: Voiding Method Toilet Toilet # Voids 4 2 0 # Bowel Movements 2 - Exam General: [non toxic], [no distress], [appears at stated age] Derm: [warm], [dry] Head: [atraumatic], [normocephalic], [symmetric] Eyes: [EOMI], [no lid lag], [anicteric sclera] Mouth: [no lip lesion], [mucus membranes moist] Cardiovascular: [S1S2 reg], [no murmur], [positive posterior tibial pulse klever ateral], Lungs: [CTA bilateral], [no rhonchi, no rales] , [no accessory muscle use] Abdominal: [soft], [ tender to palpation], [no guarding], [no appreciable organomegaly] Ext: [no gross muscle atrophy], [no edema], [no contractures] Neuro: [ CN II-XI grossly intact], [no focal neuro deficits] Psych: [Alert], [oriented], [appropriate affect]. - Labs CBC & Chem 7: 09/27/22 04:53 09/27/22 04:53 Labs: Abnormal Lab Results - Last 24 Hours (Table) 09/26/22 09/26/22 09/27/22 Range/Units 17:43 20:09 04:53 Hgb 8.6 L (11.4-16.0) gm/dL Hct 30.8 L (34.0-46.0) % MCV 79.9 L (80.0-100.0) fL MCH 22.3 L (25.0-35.0) pg MCHC 28.0 L (31.0-37.0) g/dL RDW 15.9 H (11.5-15.5) % Chloride (98-107) mmol/L Carbon Dioxide (22-30) mmol/L BUN (7-17) mg/dL Creatinine (0.52-1.04) mg/dL Glucose (74-99) mg/dL POC Glucose (mg/dL) 292 H 252 H (70-110) mg/dL AST (14-36) U/L ALT (4-34) U/L Alkaline Phosphatase (38-126) U/L Total Protein (6.3-8.2) g/dL Albumin (3.5-5.0) g/dL 09/27/22 09/27/22 Range/Units 04:53 06:30 Hgb (11.4-16.0) gm/dL Hct (34.0-46.0) % MCV (80.0-100.0) fL MCH (25.0-35.0) pg MCHC (31.0-37.0) g/dL RDW (11.5-15.5) % Chloride 114 H (98-107) mmol/L Carbon Dioxide 20 L (22-30) mmol/L BUN 22 H (7-17) mg/dL Creatinine 1.16 H (0.52-1.04) mg/dL Glucose 158 H (74-99) mg/dL POC Glucose (mg/dL) 173 H (70-110) mg/dL AST 173 H (14-36) U/L ALT 110 H (4-34) U/L Alkaline Phosphatase 343 H (38-126) U/L Total Protein 5.7 L (6.3-8.2) g/dL Albumin 3.1 L (3.5-5.0) g/dL Microbiology - Last 24 Hours (Table) 09/24/22 16:56 Blood Culture - Preliminary Blood No Growth after 48 hours 09/24/22 16:56 Blood Culture - Preliminary Blood No Growth after 48 hours Assessment and Plan Assessment: 1. Postop day 0 for lap ayad cystectomy Pain control IV fluids Recommendations appreciated Restart Eliquis in 24-48 hours once cleared by surgery 2. Abdominal pain secondary to cholecystitis General surgery recommendations appreciated HIDA scan showed absence of gallbladder filling at 4 hours suggesting cholec ystitis with a heterogeneous pattern of the liver Continue IV fluids Continue IV antibiotics Levaquin and Flagyl Pain control morphine when necessary Vitals every 4 hours antiemetic Zofran when necessary telemetry 2. History of DVT due to Covid with questionable history of A. fib due to Covid Cardiology recommendations appreciated Eliquis held Resume beta driss with parameters Restart Eliquis in 24-48 hours once cleared by surgery 3. History of renal transplant due to ESRD From diabetes Resume home medications 4. Insulin-dependent diabetes mellitus Check blood sugars every 4 hours since patient is nothing by mouth Insulin sliding scale Resume home insulin 5. Hypertension, hyperlipidemia, and hypothyroid Resume home medications 6. Debility Fall precautions 7. GI DVT prophylaxis 8. A.m. labs Disposition: Patient needs rehab versus home with home care Patient will require greater than 2 midnight hospital stay Patient is a full code
[2022-09-27 17:08] LABS: % Iron Saturation 10.99 (12.00-45.00)
[2022-09-27 17:12] LABS: Glucose,Whole Blood 120 mg/dL (70-110)
[2022-09-27] MEDS ORDERED: METOCLOPRAMIDE 5 MG/ML 2 ML VIAL IVP PRN (17:59)
[2022-09-27 21:28] LABS: Glucose,Whole Blood 124 mg/dL (70-110)
[2022-09-27] MEDS: INSULIN DETEMIR (LEVEMIR) 100 UNIT/ML SYR SQ SCH (21:33)
[2022-09-28] MEDS: metroNIDAZOLE-NS PMX 500 MG in SALINE 1 100ML.BAG IVPB SCH ×3 (00:31→17:56)
[2022-09-28] MEDS: INSULIN ASPART (NovoLOG) 100 UNIT/ML VIAL SQ SCH ×4 (06:07→21:42)
[2022-09-28 06:08] LABS: Glucose,Whole Blood 118 mg/dL (70-110)
[2022-09-28] MEDS: carvediloL 3.125 MG TAB PO SCH ×2 (06:08→17:56)
[2022-09-28] MEDS: LEVOTHYROXINE 75 MCG TAB PO SCH (06:08)
[2022-09-28 06:52] LABS: Basophils % (A) 0 %; Eosinophils # (A) 0.1 k/uL (0-0.7); Eosinophils % (A) 1 %; HCT 32.1 % (34.0-46.0); HGB 9.2 gm/dL (11.4-16.0); Hypochromasia Marked; Lymphocytes # (A) 0.8 k/uL (1.0-4.8); Lymphocytes % (A) 15 %; MCH 22.6 pg (25.0-35.0); MCHC 28.6 g/dL (31.0-37.0); MCV 79.2 fL (80.0-100.0); Mean Platelet Volume 8.1; Monocytes # (A) 0.2 k/uL (0-1.0); Monocytes % (A) 4 %; Neutrophils # (A) 4.4 k/uL (1.3-7.7); Neutrophils % (A) 78 %; Platelet Count 221 k/uL (150-450); RBC 4.05 m/uL (3.80-5.40); RDW 15.7 % (11.5-15.5); WBC 5.6 k/uL (3.8-10.6)
[2022-09-28 07:04] LABS: ALT 75 U/L (4-34); AST 79 U/L (14-36); African American GFR (CKD) 59 (>60 ml/min/1.73 sqM); Albumin 3.2 g/dL (3.5-5.0); Albumin/Globulin Ratio 1.2; Alkaline Phosphatase 282 U/L (38-126); Anion Gap 7 mmol/L; Blood Urea Nitrogen 20 mg/dL (7-17); Calcium 8.6 mg/dL (8.4-10.2); Carbon Dioxide 22 mmol/L (22-30); Chloride 112 mmol/L (98-107); Globulin 2.7 g/dL; Glucose 112 mg/dL (74-99); Non-African American GFR(CKD) 51 (>60 ml/min/1.73 sqM); Potassium 4.3 mmol/L (3.5-5.1); Sodium 141 mmol/L (137-145); Total Bilirubin 0.5 mg/dL (0.2-1.3); Total Protein 5.9 g/dL (6.3-8.2)
[2022-09-28] MEDS: predniSONE 5 MG TAB PO SCH (08:34)
[2022-09-28] MEDS: TACROLIMUS 1 MG CAP PO SCH ×2 (08:34→21:43)
[2022-09-28] MEDS: ATORVASTATIN 20 MG TAB PO SCH (08:34)
[2022-09-28] MEDS: MAGNESIUM OXIDE 400 MG TAB PO SCH (08:34)
[2022-09-28] MEDS: PANTOPRAZOLE 40 MG/10 ML VIAL IVP SCH (08:35)
[2022-09-28] MEDS: polyethylene glycoL 3350 17 GM POWD.PACK PO SCH (08:38)
--- NOTE | 2022-09-28 11:23 | P.PN ---
Subjective Patient is seen in follow-up for renal transplant management. Renal allograft function stable. Tolerating oral intake. Has been voiding. Blood pressure stable. No active complaints. Vital signs are stable. General: No acute distress. HEENT: Head exam is unremarkable. LUNGS: Breath sounds decreased. HEART: Rate and Rhythm are regular. ABDOMEN: Soft, no distention. EXTREMITITES: 1+ edema. Objective - Vital Signs Vital signs: Vital Signs Temp 98.5 F 09/28/22 07:00 Pulse 79 09/28/22 07:00 Resp 18 09/28/22 07:00 BP 148/72 09/28/22 07:00 Pulse Ox 95 09/28/22 07:00 FiO2 Intake & Output 09/27/22 09/28/22 09/28/22 18:59 06:59 18:59 Intake Total 940 118 Output Total 6 Balance 934 118 Intake: IV 850 Oral 90 118 Output: Emesis 1 Estimated Blood Loss 5 Other: Voiding Method Toilet Toilet # Voids 1 2 - Labs CBC & Chem 7: 09/28/22 06:34 09/28/22 06:34 Labs: Abnormal Lab Results - Last 24 Hours (Table) 09/27/22 09/27/22 09/27/22 Range/Units 04:53 17:10 21:26 Hgb (11.4-16.0) gm/dL Hct (34.0-46.0) % MCV (80.0-100.0) fL MCH (25.0-35.0) pg MCHC (31.0-37.0) g/dL RDW (11.5-15.5) % Lymphocytes # (1.0-4.8) k/uL Chloride (98-107) mmol/L BUN (7-17) mg/dL Creatinine (0.52-1.04) mg/dL Glucose (74-99) mg/dL POC Glucose (mg/dL) 120 H 124 H (70-110) mg/dL Iron 34 L (50-170) ug/dL % Saturation 10.99 L (12.00-45.00) AST (14-36) U/L ALT (4-34) U/L Alkaline Phosphatase (38-126) U/L Total Protein (6.3-8.2) g/dL Albumin (3.5-5.0) g/dL 09/28/22 09/28/22 09/28/22 Range/Units 06:07 06:34 06:34 Hgb 9.2 L (11.4-16.0) gm/dL Hct 32.1 L (34.0-46.0) % MCV 79.2 L (80.0-100.0) fL MCH 22.6 L (25.0-35.0) pg MCHC 28.6 L (31.0-37.0) g/dL RDW 15.7 H (11.5-15.5) % Lymphocytes # 0.8 L (1.0-4.8) k/uL Chloride 112 H (98-107) mmol/L BUN 20 H (7-17) mg/dL Creatinine 1.20 H (0.52-1.04) mg/dL Glucose 112 H (74-99) mg/dL POC Glucose (mg/dL) 118 H (70-110) mg/dL Iron (50-170) ug/dL % Saturation (12.00-45.00) AST 79 H (14-36) U/L ALT 75 H (4-34) U/L Alkaline Phosphatase 282 H (38-126) U/L Total Protein 5.9 L (6.3-8.2) g/dL Albumin 3.2 L (3.5-5.0) g/dL Microbiology - Last 24 Hours (Table) 09/24/22 16:56 Blood Culture - Preliminary Blood No Growth after 72 hours 09/24/22 16:56 Blood Culture - Preliminary Blood No Growth after 72 hours Assessment and Plan Plan: Assessment: 1. Acute allograft dysfunction most to prerenal improved with IV hydration. Creatinine peaked at 1.4 this admission and is 1.2 today. 2. Status post living related renal allograft in 2011 at [facility]. 3. Chronic kidney disease stage IIIa, baseline creatinine 1.1-1.2. 4. Acute cholecystitis. Scheduled for laparoscopic cholecystectomy 09/27/2022. 5. Anemia. Iron deficiency noted. 6. Non-gap metabolic acidosis secondary to IV fluids. Better. 7. Hypertension with chronic any disease. Stable. 8. Diabetes mellitus. 9. Lower extremity edema. Plan: Hep-Lock IV fluids. Resume oral Lasix 20 mg once daily. Maintain antirejection medications. Follow-up Prograf level. Avoid nephrotoxins. Add IV iron. Continue to monitor renal function and urine output. Follow-up outpatient in 1-2 weeks post discharge.
[2022-09-28 11:37] LABS: Glucose,Whole Blood 152 mg/dL (70-110)
[2022-09-28] MEDS: SODIUM FERRIC GLUCONAT-SUCROSE 125 MG in SODIUM CHLORIDE 0.9% 100 ML IVPB SCH (12:48)
[2022-09-28] MEDS: LEVOFLOXACIN 750MG-D5W PMX 750 MG in DEXTROSE/WATER 1 150ML.BAG IVPB SCH (12:49)
[2022-09-28] MEDS: FUROSEMIDE 20 MG TAB PO SCH (12:49)
--- NOTE | 2022-09-28 14:15 | P.PN ---
Subjective Progress Note Date: 09/28/22 Patient seen and examined at bedside. Diet has been advanced. Patient's Eliquis will be started tomorrow. Post surgical abdominal pain has improved. Patient denies chest pain or shortness breath. Objective - Vital Signs Vital signs: Vital Signs Temp 98.5 F 09/28/22 07:00 Pulse 79 09/28/22 07:00 Resp 18 09/28/22 07:00 BP 148/72 09/28/22 07:00 Pulse Ox 95 09/28/22 07:00 FiO2 Intake & Output 09/27/22 09/28/22 09/28/22 18:59 06:59 18:59 Intake Total 940 118 Output Total 6 Balance 934 118 Intake: IV 850 Oral 90 118 Output: Emesis 1 Estimated Blood Loss 5 Other: Voiding Method Toilet Toilet # Voids 1 2 - Exam General: [non toxic], [no distress], [appears at stated age] Derm: [warm], [dry] Head: [atraumatic], [normocephalic], [symmetric] Eyes: [EOMI], [no lid lag], [anicteric sclera] Mouth: [no lip lesion], [mucus membranes moist] Cardiovascular: [S1S2 reg], [no murmur], [positive posterior tibial pulse bilateral], Lungs: [CTA bilateral], [no rhonchi, no rales] , [no accessory muscle use] Abdominal: [soft], [ tender to palpation], [no guarding], [no appreciable organomegaly] Ext: [no gross muscle atrophy], [no edema], [no contractures] Neuro: [ CN II-XI grossly intact], [no focal neuro deficits] Psych: [Alert], [oriented], [appropriate affect] - Labs CBC & Chem 7: 09/28/22 06:34 09/28/22 06:34 Labs: Abnormal Lab Results - Last 24 Hours (Table) 09/27/22 09/27/22 09/27/22 Range/Units 04:53 17:10 21:26 Hgb (11.4-16.0) gm/dL Hct (34.0-46.0) % MCV (80.0-100.0) fL MCH (25.0-35.0) pg MCHC (31.0-37.0) g/dL RDW (11.5-15.5) % Lymphocytes # (1.0-4.8) k/uL Chloride (98-107) mmol/L BUN (7-17) mg/dL Creatinine (0.52-1.04) mg/dL Glucose (74-99) mg/dL POC Glucose (mg/dL) 120 H 124 H (70-110) mg/dL Iron 34 L (50-170) ug/dL % Saturation 10.99 L (12.00-45.00) AST (14-36) U/L ALT (4-34) U/L Alkaline Phosphatase (38-126) U/L Total Protein (6.3-8.2) g/dL Albumin (3.5-5.0) g/dL 09/28/22 09/28/22 09/28/22 Range/Units 06:07 06:34 06:34 Hgb 9.2 L (11.4-16.0) gm/dL Hct 32.1 L (34.0-46.0) % MCV 79.2 L (80.0-100.0) fL MCH 22.6 L (25.0-35.0) pg MCHC 28.6 L (31.0-37.0) g/dL RDW 15.7 H (11.5-15.5) % Lymphocytes # 0.8 L (1.0-4.8) k/uL Chloride 112 H (98-107) mmol/L BUN 20 H (7-17) mg/dL Creatinine 1.20 H (0.52-1.04) mg/dL Glucose 112 H (74-99) mg/dL POC Glucose (mg/dL) 118 H (70-110) mg/dL Iron (50-170) ug/dL % Saturation (12.00-45.00) AST 79 H (14-36) U/L ALT 75 H (4-34) U/L Alkaline Phosphatase 282 H (38-126) U/L Total Protein 5.9 L (6.3-8.2) g/dL Albumin 3.2 L (3.5-5.0) g/dL 09/28/22 Range/Units 11:26 Hgb (11.4-16.0) gm/dL Hct (34.0-46.0) % MCV (80.0-100.0) fL MCH (25.0-35.0) pg MCHC (31.0-37.0) g/dL RDW (11.5-15.5) % Lymphocytes # (1.0-4.8) k/uL Chloride (98-107) mmol/L BUN (7-17) mg/dL Creatinine (0.52-1.04) mg/dL Glucose (74-99) mg/dL POC Glucose (mg/dL) 152 H (70-110) mg/dL Iron (50-170) ug/dL % Saturation (12.00-45.00) AST (14-36) U/L ALT (4-34) U/L Alkaline Phosphatase (38-126) U/L Total Protein (6.3-8.2) g/dL Albumin (3.5-5.0) g/dL Microbiology - Last 24 Hours (Table) 09/24/22 16:56 Blood Culture - Preliminary Blood No Growth after 72 hours 09/24/22 16:56 Blood Culture - Preliminary Blood No Growth after 72 hours Assessment and Plan Assessment: 1. Postop day one for lap ayad cystectomy Pain control IV fluids Recommendations appreciated Restart Eliquis in 24 once cleared by surgery 2. Abdominal pain secondary to cholecystitis improved POD #1 lap cholecystectomy General surgery recommendations appreciated HIDA scan showed absence of gallbladder filling at 4 hours suggesting c holecystitis with a heterogeneous pattern of the liver Continue IV fluids Continue IV antibiotics Levaquin and Flagyl Pain control morphine when necessary Vitals every 4 hours antiemetic Zofran when necessary telemetry 2. History of DVT due to Covid with questionable history of A. fib due to Covid Cardiology recommendations appreciated Eliquis held Resume beta driss with parameters Restart Eliquis in 24-48 hours once cleared by surgery 3. History of renal transplant due to ESRD From diabetes Resume home medications 4. Insulin-dependent diabetes mellitus Check blood sugars every 4 hours since patient is nothing by mouth Insulin sliding scale Resume home insulin 5. Hypertension, hyperlipidemia, and hypothyroid Resume home medications 6. Debility Fall precautions 7. GI DVT prophylaxis 8. A.m. labs Disposition: Patient needs rehab versus home with home care DC in the AM Patient will require greater than 2 midnight hospital stay Patient is a full code
--- NOTE | 2022-09-28 15:01 | P.PN ---
Subjective Progress Note Date: 09/28/22 Principal diagnosis: Acute cholecystitis Patient feels better today. The pain she was having preoperatively as improved. No nausea or vomiting. She is not taking any pain medications. Tolerating full liquids. Labs noted. Objective - Vital Signs Vital signs: Vital Signs Temp 98.5 F 09/28/22 07:00 Pulse 79 09/28/22 07:00 Resp 18 09/28/22 07:00 BP 148/72 09/28/22 07:00 Pulse Ox 95 09/28/22 07:00 FiO2 Intake & Output 09/27/22 09/28/22 09/28/22 18:59 06:59 18:59 Intake Total 940 118 Output Total 6 Balance 934 118 Intake: IV 850 Oral 90 118 Output: Emesis 1 Estimated Blood Loss 5 Other: Voiding Method Toilet Toilet # Voids 1 2 - Exam Abdomen: Soft, nondistended, incisions clean and dry, mild tenderness - Labs CBC & Chem 7: 09/28/22 06:34 09/28/22 06:34 Labs: Abnormal Lab Results - Last 24 Hours (Table) 09/27/22 09/27/22 09/27/22 Range/Units 04:53 17:10 21:26 Hgb (11.4-16.0) gm/dL Hct (34.0-46.0) % MCV (80.0-100.0) fL MCH (25.0-35.0) pg MCHC (31.0-37.0) g/dL RDW (11.5-15.5) % Lymphocytes # (1.0-4.8) k/uL Chloride (98-107) mmol/L BUN (7-17) mg/dL Creatinine (0.52-1.04) mg/dL Glucose (74-99) mg/dL POC Glucose (mg/dL) 120 H 124 H (70-110) mg/dL Iron 34 L (50-170) ug/dL % Saturation 10.99 L (12.00-45.00) AST (14-36) U/L ALT (4-34) U/L Alkaline Phosphatase (38-126) U/L Total Protein (6.3-8.2) g/dL Albumin (3.5-5.0) g/dL 09/28/22 09/28/22 09/28/22 Range/Units 06:07 06:34 06:34 Hgb 9.2 L (11.4-16.0) gm/dL Hct 32.1 L (34.0-46.0) % MCV 79.2 L (80.0-100.0) fL MCH 22.6 L (25.0-35.0) pg MCHC 28.6 L (31.0-37.0) g/dL RDW 15.7 H (11.5-15.5) % Lymphocytes # 0.8 L (1.0-4.8) k/uL Chloride 112 H (98-107) mmol/L BUN 20 H (7-17) mg/dL Creatinine 1.20 H (0.52-1.04) mg/dL Glucose 112 H (74-99) mg/dL POC Glucose (mg/dL) 118 H (70-110) mg/dL Iron (50-170) ug/dL % Saturation (12.00-45.00) AST 79 H (14-36) U/L ALT 75 H (4-34) U/L Alkaline Phosphatase 282 H (38-126) U/L Total Protein 5.9 L (6.3-8.2) g/dL Albumin 3.2 L (3.5-5.0) g/dL 09/28/22 Range/Units 11:26 Hgb (11.4-16.0) gm/dL Hct (34.0-46.0) % MCV (80.0-100.0) fL MCH (25.0-35.0) pg MCHC (31.0-37.0) g/dL RDW (11.5-15.5) % Lymphocytes # (1.0-4.8) k/uL Chloride (98-107) mmol/L BUN (7-17) mg/dL Creatinine (0.52-1.04) mg/dL Glucose (74-99) mg/dL POC Glucose (mg/dL) 152 H (70-110) mg/dL Iron (50-170) ug/dL % Saturation (12.00-45.00) AST (14-36) U/L ALT (4-34) U/L Alkaline Phosphatase (38-126) U/L Total Protein (6.3-8.2) g/dL Albumin (3.5-5.0) g/dL Microbiology - Last 24 Hours (Table) 09/24/22 16:56 Blood Culture - Preliminary Blood No Growth after 72 hours 09/24/22 16:56 Blood Culture - Preliminary Blood No Growth after 72 hours Assessment and Plan (1) Acute cholecystitis Narrative/Plan: Patient doing well after cholecystectomy yesterday. Continue advancing diet. Hold anticoagulation until tomorrow. If doing well tomorrow would be stable for discharge from our point of view. Current Visit: Yes Status: Acute Code(s): K81.0 - ACUTE CHOLECYSTITIS SNOMED Code(s): 87484536
[2022-09-28] MEDS: APIXABAN 5 MG TAB PO SCH ×2 (15:11→21:45)
[2022-09-28 17:18] LABS: Glucose,Whole Blood 190 mg/dL (70-110)
[2022-09-28 20:12] LABS: Glucose,Whole Blood 174 mg/dL (70-110)
[2022-09-28] MEDS: INSULIN DETEMIR (LEVEMIR) 100 UNIT/ML SYR SQ SCH (21:42)
[2022-09-29] MEDS: metroNIDAZOLE-NS PMX 500 MG in SALINE 1 100ML.BAG IVPB SCH ×2 (00:29→08:06)
[2022-09-29 00:47] VITALS: TEMP 98.3
[2022-09-29] MEDS: INSULIN ASPART (NovoLOG) 100 UNIT/ML VIAL SQ SCH ×2 (06:12→12:46)
[2022-09-29 06:13] LABS: Glucose,Whole Blood 137 mg/dL (70-110)
[2022-09-29] MEDS: carvediloL 3.125 MG TAB PO SCH (06:15)
[2022-09-29] MEDS: LEVOTHYROXINE 75 MCG TAB PO SCH (06:15)
[2022-09-29] MEDS: SODIUM FERRIC GLUCONAT-SUCROSE 125 MG in SODIUM CHLORIDE 0.9% 100 ML IVPB SCH (08:06)
[2022-09-29] MEDS: APIXABAN 5 MG TAB PO SCH (08:07)
[2022-09-29] MEDS: PANTOPRAZOLE 40 MG/10 ML VIAL IVP SCH (08:07)
[2022-09-29] MEDS: ATORVASTATIN 20 MG TAB PO SCH (08:07)
[2022-09-29] MEDS: MAGNESIUM OXIDE 400 MG TAB PO SCH (08:07)
[2022-09-29] MEDS: FUROSEMIDE 20 MG TAB PO SCH (08:08)
[2022-09-29] MEDS: predniSONE 5 MG TAB PO SCH (08:08)
[2022-09-29] MEDS: TACROLIMUS 1 MG CAP PO SCH (08:08)
[2022-09-29] MEDS: polyethylene glycoL 3350 17 GM POWD.PACK PO SCH (08:24)
[2022-09-29 08:38] VITALS: BP 137/68; PULSE 71; RESP 16
[2022-09-29 09:03] LABS: African American GFR (CKD) 65.5 (60.0-200.0); Anion Gap 4.2 mmol/L (10.00-18.00); Blood Urea Nitrogen 16.5 mg/dL (9.0-27.0); Calcium 8.7 mg/dL (8.7-10.3); Carbon Dioxide 24.8 mmol/L (20.0-27.5); Magnesium 1.5 mg/dL (1.5-2.4); Non-African American GFR(CKD) 56.5 (60.0-200.0)
--- NOTE | 2022-09-29 11:20 | P.DS ---
Providers Date of admission: 09/24/22 17:27 Expected date of discharge: 09/29/22 Attending physician: Mira Russell MD Consults: 09/24/22 16:50 Consult Physician Routine Consulting Provider: Natalia Foreman Consult Reason/Comments: cholecystitis Do you want consulting provider notified?: Yes 09/25/22 15:22 Consult Physician Routine Consulting Provider: Renetta Koenig Consult Reason/Comments: history of kidney transplant Do you want consulting provider notified?: Yes 09/26/22 09:50 Consult Physician Routine Consulting Provider: Sofi Wynn Consult Reason/Comments: elevated LFTs, possible choledocholithiasis Do you want consulting provider notified?: Yes Primary care physician: Stated None Hospital Course: Admitting diagnoses: Abdominal pain Cholecystitis Discharge diagnoses: Status post cholecystectomy Cholecystitis resolved Abdominal pain resolved History of DVT History of renal transplant due to ESRD from diabetes Insulin-dependent diabetes mellitus Hypertension Hyperlipidemia Hypothyroid Debility Hospital course: This is a pleasant 57-year-old female presents to [facility] with abdominal pain. Patient was transferred from the [facility] area. Patient states that she woke up this morning, around 4 AM, with intractable epigastric and right upper quadrant pain. Patient states that she felt very bloated and nauseated. Patient tried to have a bowel movement so it would improve her pain however it did not. After an hour so of unresolving pain, patient decided to go to the hospital for further assessment. At the hospital patient had a CT of the abdomen ordered and revealed cholecystitis. Patient was transferred to [facility] for surgery assessment. 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 At this time, patient continues to have abdominal pain and nausea. Patient describes the abdominal pain as a strong pressure 8 out of 10. Pain does not radiate. Patient denies chest pain shortness of breath. Patient further denies fever or chills. Physical exam: General: [non toxic], [no distress], [appears at stated age] Derm: [warm], [dry] Head: [atraumatic], [normocephalic], [symmetric] Eyes: [EOMI], [no lid lag], [anicteric sclera] Mouth: [no lip lesion], [mucus membranes moist] Cardiovascular: [S1S2 reg], [no murmur], [positive posterior tibial pulse bilateral], Lungs: [CTA bilateral], [no rhonchi, no rales] , [no accessory muscle use] Abdominal: [soft], [ nontender to palpation], [no guarding], [no appreciable organomegaly] Ext: [no gross muscle atrophy], [no edema], [no contractures] Neuro: [ CN II-XI grossly intact], [no focal neuro deficits] Psych: [Alert], [oriented], [appropriate affect] Assessment and plan: 1. Postop day two for lap ayad cystectomy HIDA scan showed absence of gallbladder filling at 4 hours suggesting cholecystitis with a heterogeneous pattern of the liver hemce juan j need for surgery Patient is doing well and is ready for discharge Patient will have a 5 day course of Augmentin due to hx of immunosupression Restart Eliquis 2. Abdominal pain secondary to cholecystitis improved POD #2 lap cholecystectomy Follow-up with general surgery in 1-2 weeks 2. History of DVT due to Covid with questionable history of A. fib due to Covid Cardiology followed during hospital stay Eliquis held Resume beta driss with parameters Restart Eliquis 3. History of renal transplant due to ESRD From diabetes Resume home medications CR improved to 1.1 today 4. Insulin-dependent diabetes mellitus Check blood sugars every 4 hours since patient is nothing by mouth Insulin sliding scale Resume home insulin 5. Hypertension, hyperlipidemia, and hypothyroid Resume home medications 6. Debility Fall precautions Disposition: Home with home care Condition: Stable Activity: As tolerated Diet: Diabetic Follow-up with PCP in 2-7 days Follow-up with surgery in 1-2 weeks Patient Condition at Discharge: Fair Plan - Discharge Summary Discharge Rx Participant: Yes New Discharge Prescriptions: New INSULIN ASPART (NovoLOG) [NovoLOG (formulary)] 0 unit SQ ACHS each Furosemide [Lasix] 20 mg PO DAILY tab Continue Levothyroxine Sodium [Synthroid] 75 mcg PO DAILY Magnesium Oxide 400 mg PO DAILY predniSONE 5 mg PO DAILY Tacrolimus [Prograf] 2 mg PO BID Aspirin EC [Ecotrin Low Dose] 81 mg PO DAILY mycophenolate mofetiL [Cellcept] 1,500 mg PO BID Ondansetron [Zofran] 4 mg PO Q8HR PRN PRN Reason: Nausea And Vomiting carvediloL [Coreg] 6.25 mg PO BID Atorvastatin [Lipitor] 20 mg PO DAILY Potassium Chloride [Potassium Chloride ER] 10 meq PO DAILY Furosemide [Lasix] 20 mg PO DAILY Insulin Aspart [NovoLOG Flexpen] See Protocol SQ AC-TID Insulin Detemir [Levemir Flextouch Pen] 20 units SQ HS Apixaban [Eliquis] 5 mg PO BID Albuterol Sulfate [Albuterol Sulfate Hfa] 2 puff PO RT-Q6H PRN PRN Reason: Shortness Of Breath Discharge Medication List Atorvastatin [Lipitor] 20 mg PO DAILY 05/02/21 [History] Furosemide [Lasix] 20 mg PO DAILY 05/02/21 [History] Insulin Aspart [NovoLOG Flexpen] See Protocol SQ AC-TID 05/02/21 [History] Levothyroxine Sodium [Synthroid] 75 mcg PO DAILY 05/02/21 [History] Magnesium Oxide 400 mg PO DAILY 05/02/21 [History] Potassium Chloride [Potassium Chloride ER] 10 meq PO DAILY 05/02/21 [History] Albuterol Sulfate [Albuterol Sulfate Hfa] 2 puff PO RT-Q6H PRN 09/24/22 [History] Apixaban [Eliquis] 5 mg PO BID 09/24/22 [History] Aspirin EC [Ecotrin Low Dose] 81 mg PO DAILY 09/24/22 [History] Insulin Detemir [Levemir Flextouch Pen] 20 units SQ HS 09/24/22 [History] Ondansetron [Zofran] 4 mg PO Q8HR PRN 09/24/22 [History] Tacrolimus [Prograf] 2 mg PO BID 09/24/22 [History] carvediloL [Coreg] 6.25 mg PO BID 09/24/22 [History] mycophenolate mofetiL [Cellcept] 1,500 mg PO BID 09/24/22 [History] predniSONE 5 mg PO DAILY 09/24/22 [History] Furosemide [Lasix] 20 mg PO DAILY tab 09/29/22 [Rx] INSULIN ASPART (NovoLOG) [NovoLOG (formulary)] 0 unit SQ ACHS each 09/29/22 [Rx] Follow up Appointment(s)/Referral(s): Nonstaff,Physician [REFERRING] - 1-2 days Pedro Fragoso MD [Medical Doctor] - 1 Week Discharge Disposition: HOME WITH HOME HEALTH SERVICES
--- NOTE | 2022-09-29 11:28 | P.PN ---
Subjective Patient is seen in follow-up for renal transplant management. Renal allograft function better. Tolerating oral intake. Has been voiding. Blood pressure stable. No active complaints. Good urine output. Vital signs are stable. General: No acute distress. HEENT: Head exam is unremarkable. LUNGS: Breath sounds decreased. HEART: Rate and Rhythm are regular. ABDOMEN: Soft, no distention. EXTREMITITES: 1+ edema. Objective - Vital Signs Vital signs: Vital Signs Temp 98.3 F 09/29/22 07:00 Pulse 71 09/29/22 07:00 Resp 16 09/29/22 07:00 BP 137/68 09/29/22 07:00 Pulse Ox 97 09/29/22 07:00 FiO2 Intake & Output 09/28/22 09/29/22 09/29/22 18:59 06:59 18:59 Intake Total 358 Balance 358 Intake: Oral 358 Other: Voiding Method Toilet # Voids 1 2 - Labs CBC & Chem 7: 09/28/22 06:34 09/29/22 05:53 Labs: Abnormal Lab Results - Last 24 Hours (Table) 09/28/22 09/28/22 09/28/22 Range/Units 11:26 17:11 20:11 Chloride (96-109) mmol/L Anion Gap (10.00-18.00) mmol/L Est GFR (CKD-EPI)NonAf (60.0-200.0) Glucose (70-110) mg/dL POC Glucose (mg/dL) 152 H 190 H 174 H (70-110) mg/dL 09/29/22 09/29/22 Range/Units 05:53 06:10 Chloride 111 H (96-109) mmol/L Anion Gap 4.20 L (10.00-18.00) mmol/L Est GFR (CKD-EPI)NonAf 56.5 L (60.0-200.0) Glucose 128 H (70-110) mg/dL POC Glucose (mg/dL) 137 H (70-110) mg/dL Microbiology - Last 24 Hours (Table) 09/24/22 16:56 Blood Culture - Preliminary Blood No Growth after 96 hours 09/24/22 16:56 Blood Culture - Preliminary Blood No Growth after 96 hours Assessment and Plan Plan: Assessment: 1. Acute allograft dysfunction most to prerenal improved with IV hydration. Creatinine peaked at 1.4 this admission and is 1.1 today. 2. Status post living related renal allograft in 2011 at [facility]. 3. Chronic kidney disease stage IIIa, baseline creatinine 1.1-1.2. 4. Acute cholecystitis. Scheduled for laparoscopic cholecystectomy 09/27/2022. 5. Anemia. Iron deficiency noted. 6. Non-gap metabolic acidosis secondary to IV fluids. Better. 7. Hypertension with chronic any disease. Stable. 8. Diabetes mellitus. 9. Lower extremity edema. 10. Hypomagnesemia from diuresis and Prograf induced renal losses. Plan: Maintain oral Lasix 20 mg once daily. Additional 20 mg IV Lasix once today. Maintain antirejection medications. Follow-up Prograf level. Avoid nephrotoxins. Maintain IV iron. Replace magnesium. Continue to monitor renal function and urine output. Follow-up outpatient in 1-2 weeks post discharge.
--- NOTE | 2022-09-29 11:52 | P.PN ---
Subjective Progress Note Date: 09/30/22 CHIEF COMPLAINT: Abdominal pain HISTORY OF PRESENT ILLNESS: Patient is postop day 2 status post laparoscopic cholecystectomy. Her pain is controlled. She denies any nausea vomiting. Tolerating Diet. She is having flatus. And loose bowel movements. She had multiple loose bowel movements last night. They seemed to have slowed down this morning. Afebrile. PHYSICAL EXAM: VITAL SIGNS: Reviewed GENERAL: Well-developed in no acute distress. HEENT: No sclera icterus. Extraocular movements grossly intact. Moist buccal mucosa. Head is atraumatic, normocephalic. Hears conversational speech. No nasal drainage. NECK: Supple without lymphadenopathy. CHEST: Non-labored respirations and equal bilateral excursions. CARDIOVASCULAR: Palpable 2+ radial pulses. ABDOMEN: Soft. Nondistended. Nontender. Incision sites clean dry and intact MUSCULOSKELETAL: No clubbing or cyanosis. NEUROLOGIC: No focal or lateralizing signs. Cranial nerves II through XII grossly intact. PSYCH: Appropriate affect. Alert and oriented to person, place and time. SKIN: Well perfused. Good skin turgor. ASSESSMENT: 1. Acute cholecystitis status post laparoscopic cholecystectomy 2. History of DVT left leg on Eliquis 3. History of kidney transplant 4. Diabetes mellitus 5. Hyperlipidemia 6. Hypertension 7. Chronic congestive heart failure 8. Hyperkalemia resolved 9. Acute kidney injury PLAN: -Patient can be discharged from surgical standpoint -Okay to resume Eliquis -Recommend low-fat diet Physician Director Of Security note has been reviewed by physician. Signing provider agrees with the documented findings, assessment, and plan of care. Objective - Vital Signs Vital signs: Vital Signs Temp 98.3 F 09/29/22 07:00 Pulse 71 09/29/22 07:00 Resp 16 09/29/22 07:00 BP 137/68 09/29/22 07:00 Pulse Ox 97 09/29/22 07:00 FiO2 Intake & Output 09/28/22 09/29/22 09/29/22 18:59 06:59 18:59 Intake Total 358 Balance 358 Intake: Oral 358 Other: Voiding Method Toilet # Voids 1 2 - Labs CBC & Chem 7: 09/28/22 06:34 09/29/22 05:53 Labs: Abnormal Lab Results - Last 24 Hours (Table) 09/28/22 09/28/22 09/29/22 Range/Units 17:11 20:11 05:53 Chloride 111 H (96-109) mmol/L Anion Gap 4.20 L (10.00-18.00) mmol/L Est GFR (CKD-EPI)NonAf 56.5 L (60.0-200.0) Glucose 128 H (70-110) mg/dL POC Glucose (mg/dL) 190 H 174 H (70-110) mg/dL 09/29/22 Range/Units 06:10 Chloride (96-109) mmol/L Anion Gap (10.00-18.00) mmol/L Est GFR (CKD-EPI)NonAf (60.0-200.0) Glucose (70-110) mg/dL POC Glucose (mg/dL) 137 H (70-110) mg/dL Microbiology - Last 24 Hours (Table) 09/24/22 16:56 Blood Culture - Preliminary Blood No Growth after 96 hours 09/24/22 16:56 Blood Culture - Preliminary Blood No Growth after 96 hours
[2022-09-29 12:25] LABS: Glucose,Whole Blood 194 mg/dL (70-110)
[2022-09-29] MEDS: MAGNESIUM SULFATE-D5W PMX 1 GM in DEXTROSE/WATER 1 100ML.BAG IVPB SCH ×2 (12:45→13:48)
[2022-09-29] MEDS ORDERED: MAGNESIUM OXIDE 400 MG TAB PO STA (13:31)
[2022-09-29] MEDS ORDERED: FUROSEMIDE 10 MG/ML 2 ML VIAL IV ONE (15:00)
[2022-09-29] MEDS ORDERED: MAGNESIUM OXIDE 400 MG TAB PO SCH (21:00)
== END 2022-09-29 16:02 | disposition home health service (06) ==
LOC: EC 12:35 → 6NMEDSUR 17:27
PROVIDERS: ADMIT Family Medicine; ATTEND Family Medicine
DX: K81.2 Acute cholecystitis with chronic cholecystitis (principal); I13.2 Hypertensive heart and chronic kidney disease with heart failure and with stage 5 chronic kidney disease, or end stage renal disease; N18.6 End stage renal disease; I50.9 Heart failure, unspecified; D63.1 Anemia in chronic kidney disease; E78.5 Hyperlipidemia, unspecified; E11.22 Type 2 diabetes mellitus with diabetic chronic kidney disease; E87.5 Hyperkalemia; R79.89 Other specified abnormal findings of blood chemistry; E87.20 Acidosis, unspecified; I48.91 Unspecified atrial fibrillation; E03.9 Hypothyroidism, unspecified; R53.81 Other malaise; Z86.718 Personal history of other venous thrombosis and embolism; Z94.0 Kidney transplant status; Z79.899 Other long term (current) drug therapy; Z79.890 Hormone replacement therapy; Z79.4 Long term (current) use of insulin; Z79.01 Long term (current) use of anticoagulants; Z79.82 Long term (current) use of aspirin; Z79.624 Long term (current) use of inhibitors of nucleotide synthesis; Z79.52 Long term (current) use of systemic steroids; Z88.1 Allergy status to other antibiotic agents
CPT/HCPCS: 96361 ×3; 96366 ×4; 96372 ×3; 96375 ×2; 96376 ×3; 96368; 96365; 99285; 36415; 93005; 93306; 97162; 97166; 88304; 80053 ×5; 80048; 80197; 84443; 82728; 83540; 83550; 83735 ×3; 85025 ×4; 85027; 81001; 87040; 83036; 84145; 78226; 47562; G0378 ×6; A9537; J2250; J0330; J0780; J1644 ×2; J2765; J2405; J0690; J1956 ×4; J7507 ×6; J3010; J7517 ×6; J2916 ×2; J1170; J3475; J1885; J2704; J7512 ×5; C9113 ×6

== ENCOUNTER → 2024-03-17 | Day surgery (SDC) | payer MEDICARE, OTHER ==
[2024-03-14 12:21] VITALS: BMI 37.3
== END ==
LOC: ORWHC2ENDO 06:38
PROVIDERS: ATTEND Internal Medicine Gastroenterology
DX: D50.9 Iron deficiency anemia, unspecified (principal)
CPT/HCPCS: 91110

== ENCOUNTER 2024-05-22 17:12 | Inpatient (IN) | payer MEDICARE, OTHER ==
[2024-05-22] MEDS: ONDANSETRON 4 MG/2 ML VIAL IVP STA (19:04)
[2024-05-22] MEDS: SODIUM CHLORIDE 0.9% 1,000 ML IV STA (19:04)
[2024-05-22] MEDS: MORPHINE SULFATE 4 MG/ML SYRINGE IVP STA (19:04)
[2024-05-22 19:07] LABS: Anisocytosis Slight; Basophils % (A) 0 %; Eosinophils # (A) 0.1 k/uL (0-0.7); Eosinophils % (A) 3 %; HCT 26.8 % (34.0-46.0); Hypochromasia Marked; Lymphocytes # (A) 0.3 k/uL (1.0-4.8); Lymphocytes % (A) 10 %; MCH 25.7 pg (25.0-35.0); MCHC 29.9 g/dL (31.0-37.0); MCV 85.9 fL (80.0-100.0); Mean Platelet Volume 8.7; Monocytes # (A) 0.1 k/uL (0-1.0); Monocytes % (A) 4 %; Neutrophils # (A) 2.8 k/uL (1.3-7.7); Neutrophils % (A) 81 %; Platelet Count 169 k/uL (150-450); RBC 3.12 m/uL (3.80-5.40); RDW 17.4 % (11.5-15.5); WBC 3.5 k/uL (3.8-10.6)
[2024-05-22 19:13] LABS: Appearance,Urine Cloudy (Clear); Bacteria,Urine Rare /hpf; Bilirubin,Urine Negative (Negative); Blood,Urine Trace (Negative); Color,Urine Light Yellow; Glucose,Urine (UA) 4+ (Negative); Hyaline Casts,Urine 1 /lpf (0-2); Ketones,Urine Negative (Negative); Leukocyte Esterase,Urine Large (Negative); Mucus,Urine Rare /hpf; Nitrite,Urine Negative (Negative); Protein,Urine Negative (Negative); RBC,Urine 3 /hpf (0-5); Squamous Epithelial Cell,Urine <1 /hpf (0-4); Urobilinogen,Urine <2.0 mg/dL (<2.0); WBC,Urine >182 /hpf (0-5)
[2024-05-22 19:18] LABS: INR 1.1 (<1.2); Partial Thromboplastin Time 23.8 sec (22.0-30.0); Prothrombin Time 11.9 sec (10.0-12.5)
[2024-05-22 19:30] LABS: ALT 11 U/L (4-34); African American GFR (CKD) 74 (>60 ml/min/1.73 sqM); Amylase 33 U/L (30-110); Anion Gap 7 mmol/L; Blood Urea Nitrogen 25 mg/dL (7-17); Calcium 8.8 mg/dL (8.4-10.2); Carbon Dioxide 20 mmol/L (22-30); Chloride 104 mmol/L (98-107); Glucose 163 mg/dL (74-99); Lipase 43 U/L (23-300); Non-African American GFR(CKD) 64 (>60 ml/min/1.73 sqM); Sodium 131 mmol/L (137-145); Total Bilirubin 0.7 mg/dL (0.2-1.3)
--- NOTE | 2024-05-22 19:48 | ED ---
Female Urogenital HPI - General Chief complaint: Urogenital Stated complaint: lower abd pain,back pain Time Seen by Provider: 05/22/24 17:59 Source: patient Mode of arrival: ambulatory Limitations: no limitations - History of Present Illness Initial comments: Patient is a 58 y/o female, PMH prior kidney transplant, on immunosupressants presenting for bilateral lower abdominal pain x 1 week. Patient feels all of her symptoms began on May 01 when she began having pain along her left hip. She was seen at [facility] where an x-ray was performed and labs were done and she was told everything was okay. That Thursday her legs felt heavy so she w as standing in the emergency department and discharged home. Approximately 1 week ago she was diagnosed with UTI by her primary care provider. She started on Bactrim but then switched to another antibiotic at x-rays to complete. Patient completed antibiotics as prescribed. This evening she began feeling anxious about the abdominal pain so came to the ED. patient endorses associated left flank pain. No midline back pain. No numbness or lower extremities. No saddle anesthesia. No IV drug use. No history of cancer. No prior spinal surgeries. No recent trauma. No urinary incontinence or difficulty urinating. No constipation. No black or bloody stools. No diarrhea, nausea or vomiting. No vaginal discharge or bleeding. No hematuria, endorses persistent dysuria. - Related Data Home Medications Medication Instructions Recorded Confirmed Atorvastatin [Lipitor] 20 mg PO DAILY 05/02/21 05/22/24 Insulin Aspart [NovoLOG Flexpen] See Protocol SQ AC-TID 05/02/21 05/22/24 Levothyroxine Sodium [Synthroid] 75 mcg PO DAILY 05/02/21 05/22/24 Magnesium Oxide 400 mg PO DAILY 05/02/21 05/22/24 Apixaban [Eliquis] 5 mg PO BID 09/24/22 05/22/24 Aspirin EC [Ecotrin Low Dose] 81 mg PO Q2D 09/24/22 05/22/24 Tacrolimus [Prograf] 2 mg PO BID 09/24/22 05/22/24 mycophenolate mofetiL [Cellcept] 1,500 mg PO BID 09/24/22 05/22/24 ALPRAZolam [Xanax] 0.25 mg PO DAILY PRN 02/26/24 05/22/24 Dapagliflozin Propanediol [Farxiga] 10 mg PO DAILY 02/26/24 05/22/24 Ergocalciferol [Vitamin D2 (1250 1,250 mcg PO Q14D 02/26/24 05/22/24 Mcg = 74449 Iu)] Ferrous Sulfate [Feosol] 325 mg PO BID 02/26/24 05/22/24 Insulin Glargine/Lixisenatide 28 units SQ DAILY 02/26/24 05/22/24 [Soliqua 100 Unit-33 Mcg/ml Pen] calcitrioL 0.25 mcg PO FR 02/26/24 05/22/24 carvediloL [Coreg] 3.125 mg PO BID 02/26/24 05/22/24 Epoetin Sriram [Procrit] 10,000 unit SQ FR 03/14/24 05/22/24 DULoxetine HCL [Cymbalta] 20 mg PO DAILY 05/22/24 05/22/24 HYDROcodone/APAP 5-325MG [[place] 1 tab PO Q6H PRN 05/22/24 05/22/24 5-325] L.acidoph,Paracasei, B.lactis 1 cap PO DAILY 05/22/24 05/22/24 [Probiotic] Allergies Allergy/AdvReac Type Severity Reaction Status Date / Time clindamycin Allergy Rash/Hives Verified 05/22/24 19:03 sulfamethoxazole AdvReac "too Verified 05/22/24 19:03 [From Bactrim] strong" trimethoprim [From Bactrim] AdvReac "too Verified 05/22/24 19:03 strong" Review of Systems ROS Statement: Those systems with pertinent positive or pertinent negative responses have been documented in the HPI. ROS Other: All systems not noted in ROS Statement are negative. 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 Right shoulder problems. Bloating. Anemia. Hx kidney transplant 2011(unsure which kidney) due to Diabetes. Hx Covid 04/2021, was hospitalized for 1 week, then air lifted to [place], was there for 2 months, had tracheostomy, DVT's in left leg and was in coma for 3 days. History of Any Multi-Drug Resistant Organisms: None Reported Past Surgical History: Cholecystectomy Additional Past Surgical History / Comment(s): Kidney transplant 2012, hx tracheostomy with reversal, left leg bypass due to DVT's, colonoscopy, EGD, cataract surgery. Past Anesthesia/Blood Transfusion Reactions: No Reported Reaction Past Psychological History: Anxiety Smoking Status: Former smoker Past Alcohol Use History: None Reported Past Drug Use History: None Reported - Past Family History Mother Family Medical History: Cancer Additional Family Medical History / Comment(s): Breast cancer. General Exam - General Exam Comments Initial Comments: PE: CONSTITUTIONAL: No apparent distress, well appearing SKIN: Warm, dry, no jaundice, hives or petechiae EYES: Pupils are equally round, extraocular movements intact without nystagmus, clear conjunctiva, non-icteric sclera HENT: Normocephalic, atraumatic, moist mucus membranes, oropharynx clear without exudates NECK: , Full range of motion, normal appearance PULMONARY: Clear to auscultation without wheezes, rhonchi, or rales, normal excursion, no accessory muscle use and no stridor CARDIOVASCULAR: Regular rate, rhythm, normal S1 and S2. No appreciated murmurs, rubs or gallops. Strong radial pulses with intact distal perfusion. 1+ pitting edema bilaterally, patient states is chronic GASTROINTESTINAL: Soft, mild tenderness to palpation of the suprapubic region non-distended, no palpable masses, no rebound or guarding. No hepatosplenomegaly MUSCULOSKELETAL: Extremities have no gross deformity, no edema, redness, or swelling. No calf swelling, no midline spinal tenderness to palpation, left lumbar paraspinal muscle tenderness NEUROLOGIC:_a/o x 3, GCS 15, normal mentation and speech. Moves all extremities x 4 without motor or sensory deficit PSYCHIATRIC:_normal mood and affect, thought process is clear and linear Limitations: no limitations Course Vital Signs 05/22/24 05/22/24 05/22/24 17:23 19:55 21:53 Temperature 98.2 F Pulse Rate 66 68 72 Respiratory 16 18 18 Rate Blood Pressure 125/50 101/46 138/61 O2 Sat by Pulse 95 96 98 Oximetry Medical Decision Making - Medical Decision Making Was pt. sent in by a medical professional or institution (, PA, DIRECT SUPPORT STAFF MEMBER, urgent care, hospital, or fci...) When possible be specific @ -No Did you speak to anyone other than the patient for history (EMS, parent, family, police, friend...)? What history was obtained from this source @ -Patient's assisted in providing history Did you review nursing and triage notes (agree or disagree)? Why? @ -I reviewed triage notes, I disagree, patient currently complains of lower abdominal pain but not bilateral leg pain, endorses left flank pain Differential Diagnosis (chest pain, altered mental status, abdominal pain women, abdominal pain men, vaginal bleeding, weakness, fever, dyspnea, syncope, headache, dizziness, GI bleed, back pain, seizure, CVA, palpatations, mental health, musculoskeletal)? @ -Differential diagnosis remains broad however top considerations include cystitis, ureterolithiasis, diverticulitis, gastroenteritis, musculoskeletal etiology, this is not restless X-rays interpreted by me (1pt min.). @ -None done CT interpreted by me (1pt min.). @ -Reviewed CT, no evidence of obstruction, perforation or hydronephrosis U/S interpreted by me (1pt. min.). @ -None done What testing was considered but not performed or refused? (CT, X-rays, U/S, labs)? Why? @ -Considered CT abdomen pelvis with contrast however patient has single kidney What meds were considered but not given or refused? Why? @ -None Did you discuss the management of the patient with other professionals (professionals i.e. , PA, DIRECT SUPPORT STAFF MEMBER, lab, RT, psych nurse, sexual assault social worker, dance coach, teacher, chief strategy officer, shoe caser)? Give summary @ -No Was smoking cessation discussed for >3mins.? @ -No Was critical care preformed (if so, how long)? @ -No Were there social determinants of health that impacted care today? How? (Homelessness, low income, unemployed, alcoholism, drug addiction, transportation, low edu. Level, literacy, decrease access to med. care, usp, rehab)? @ -No Was there de-escalation of care discussed even if they declined (Discuss DNR or withdrawal of care, Hospice)? @ -No What co-morbidities impacted this encounter? (DM, HTN, Smoking, COPD, CAD, Cancer, CVA, ARF, Chemo, Hep., AIDS, mental health diagnosis, sleep apnea, morbid obesity)? @ -Kidney transplant recipient Was patient admitted / discharged? Hospital course, mention meds given and route, prescriptions, significant lab abnormalities, going to OR and other pertinent info. @ -Hospital course admitted- Patient is a pleasant 58-year-old female past medical history prior renal transplant presenting today for lower abdominal pain. Diagnosed with UTI 1 week ago. Has since completed course of antibiotics with persistent dysuria. +lower abdominal pain with left flank pain. No nausea, vomiting, diarrhea, black or bloody stools or fevers. Also notes that she has been having chronic left hip pain that has had multiple negative x-rays. Patient afebrile here. Diff erential diagnosis as above. CT ab pelvis without contrast ordered, urinalysis CBC CMP, fluids and pain control. Urine shows current persistent signs of infection, ordered cefepime, anticipate admission for failed outpatient treatment antibiotics. Patient's pain controlled on my reassessment. Given patient's persistent left hip pain and sciatica I will also place a consult for orthopedics to assess patient while she is admitted. She is agreeable with plan for admission. Discussed with Dr. Reed who accepts patient for admission Undiagnosed new problem with uncertain prognosis? @ -No Drug Therapy requiring intensive monitoring for toxicity (Heparin, Nitro, Insulin, Cardizem)? @ -No Were any procedures done? @ -No Diagnosis/symptom? @ -Acute cystitis Acute, or Chronic, or Acute on Chronic? @Acute Uncomplicated (without systemic symptoms) or Complicated (systemic symptoms)? @ -Complicated Side effects of treatment? @ -No Exacerbation, Progression, or Severe Exacerbation? @ -No Poses a threat to life or bodily function? How? (Chest pain, [place], [place], pneumonia, PE, COPD, DKA, ARF, appy, cholecystitis, CVA, Diverticulitis, Homicidal, Suicidal, threat to staff... and all critical care pts) @Unlikely - Lab Data Result diagrams: 05/22/24 18:50 05/22/24 18:50 Lab Results 05/22/24 05/22/24 05/22/24 Range/Units 18:50 18:50 18:50 WBC 3.5 L (3.8-10.6) k/uL RBC 3.12 L (3.80-5.40) m/uL Hgb 8.0 L (11.4-16.0) gm/dL Hct 26.8 L (34.0-46.0) % MCV 85.9 (80.0-100.0) fL MCH 25.7 (25.0-35.0) pg MCHC 29.9 L (31.0-37.0) g/dL RDW 17.4 H (11.5-15.5) % Plt Count 169 (150-450) k/uL MPV 8.7 Neutrophils % 81 % Lymphocytes % 10 % Monocytes % 4 % Eosinophils % 3 % Basophils % 0 % Neutrophils # 2.8 (1.3-7.7) k/uL Lymphocytes # 0.3 L (1.0-4.8) k/uL Monocytes # 0.1 (0-1.0) k/uL Eosinophils # 0.1 (0-0.7) k/uL Basophils # 0.0 (0-0.2) k/uL Hypochromasia Marked Anisocytosis Slight PT 11.9 (10.0-12.5) sec INR 1.1 (<1.2) APTT 23.8 (22.0-30.0) sec Sodium (137-145) mmol/L Potassium (3.5-5.1) mmol/L Chloride (98-107) mmol/L Carbon Dioxide (22-30) mmol/L Anion Gap mmol/L BUN (7-17) mg/dL Creatinine (0.52-1.04) mg/dL Est GFR (CKD-EPI)AfAm (>60 ml/min/1.73 sqM) Est GFR (CKD-EPI)NonAf (>60 ml/min/1.73 sqM) Glucose (74-99) mg/dL Plasma Lactic Acid [place] (0.7-2.0) mmol/L Calcium (8.4-10.2) mg/dL Total Bilirubin (0.2-1.3) mg/dL AST (14-36) U/L ALT (4-34) U/L Alkaline Phosphatase (38-126) U/L C-Reactive Protein (<1.0) mg/dL Total Protein (6.3-8.2) g/dL Albumin (3.5-5.0) g/dL Amylase (30-110) U/L Lipase (23-300) U/L Urine Color Light Yellow Urine Appearance Cloudy H (Clear) Urine pH 5.0 (5.0-8.0) Ur Specific [place] 1.020 (1.001-1.035) Urine Protein Negative (Negative) Urine Glucose (UA) 4+ H (Negative) Urine Ketones Negative (Negative) Urine Blood Trace H (Negative) Urine Nitrite Negative (Negative) Urine Bilirubin Negative (Negative) Urine Urobilinogen <2.0 (<2.0) mg/dL Ur Leukocyte Esterase Large H (Negative) Urine RBC 3 (0-5) /hpf Urine WBC >182 H (0-5) /hpf Urine WBC Clumps Many H (None) /hpf Ur Squamous Epith Cells <1 (0-4) /hpf Urine Bacteria Rare H (None) /hpf Hyaline Casts 1 (0-2) /lpf Urine Mucus Rare H (None) /hpf 05/22/24 05/22/24 Range/Units 18:50 18:50 WBC (3.8-10.6) k/uL RBC (3.80-5.40) m/uL Hgb (11.4-16.0) gm/dL Hct (34.0-46.0) % MCV (80.0-100.0) fL MCH (25.0-35.0) pg MCHC (31.0-37.0) g/dL RDW (11.5-15.5) % Plt Count (150-450) k/uL MPV Neutrophils % % Lymphocytes % % Monocytes % % Eosinophils % % Basophils % % Neutrophils # (1.3-7.7) k/uL Lymphocytes # (1.0-4.8) k/uL Monocytes # (0-1.0) k/uL Eosinophils # (0-0.7) k/uL Basophils # (0-0.2) k/uL Hypochromasia Anisocytosis PT (10.0-12.5) sec INR (<1.2) APTT (22.0-30.0) sec Sodium 131 L (137-145) mmol/L Potassium 5.4 H (3.5-5.1) mmol/L Chloride 104 (98-107) mmol/L Carbon Dioxide 20 L (22-30) mmol/L Anion Gap 7 mmol/L BUN 25 H (7-17) mg/dL Creatinine 0.99 (0.52-1.04) mg/dL Est GFR (CKD-EPI)AfAm 74 (>60 ml/min/1.73 sqM) Est GFR (CKD-EPI)NonAf 64 (>60 ml/min/1.73 sqM) Glucose 163 H (74-99) mg/dL Plasma Lactic Acid Carr[place] 0.9 (0.7-2.0) mmol/L Calcium 8.8 (8.4-10.2) mg/dL Total Bilirubin 0.7 (0.2-1.3) mg/dL AST 32 (14-36) U/L ALT 11 (4-34) U/L Alkaline Phosphatase 64 (38-126) U/L C-Reactive Protein 2.3 H (<1.0) mg/dL Total Protein 6.5 (6.3-8.2) g/dL Albumin 3.8 (3.5-5.0) g/dL Amylase 33 (30-110) U/L Lipase 43 (23-300) U/L Urine Color Urine Appearance (Clear) Urine pH (5.0-8.0) Ur Specific [place] (1.001-1.035) Urine Protein (Negative) Urine Glucose (UA) (Negative) Urine Ketones (Negative) Urine Blood (Negative) Urine Nitrite (Negative) Urine Bilirubin (Negative) Urine Urobilinogen (<2.0) mg/dL Ur Leukocyte Esterase (Negative) Urine RBC (0-5) /hpf Urine WBC (0-5) /hpf Urine WBC Clumps (None) /hpf Ur Squamous Epith Cells (0-4) /hpf Urine Bacteria (None) /hpf Hyaline Casts (0-2) /lpf Urine Mucus (None) /hpf Disposition Clinical Impression: Urinary tract infection Disposition: ADMITTED IP TO THIS HOSP
[2024-05-22 19:56] LABS: AST 32 U/L (14-36); Albumin 3.8 g/dL (3.5-5.0); Alkaline Phosphatase 64 U/L (38-126); Potassium 5.4 mmol/L (3.5-5.1); Total Protein 6.5 g/dL (6.3-8.2)
[2024-05-22 20:09] LABS: C Reactive Protein 2.3 mg/dL (<1.0)
--- NOTE | 2024-05-22 20:10 | CT ---
EXAMINATION TYPE: CT abdomen pelvis wo con, CT lumbar spine wo con CT DLP: 1728.4 mGycm, Automated exposure control for dose reduction was used. DATE OF EXAM: 05/22/2024 7:51 PM COMPARISON: None CLINICAL INDICATION: Female, 58 years old with history of bilateral lower ab. pain, left flank pain; bilateral lower ab. pain, left flank pain TECHNIQUE: Axial CT abdomen pelvis wo con, CT lumbar spine wo con;Sagittal and coronal reformats wer e created on a separate workstation. Axial imaging of the lumbar spine was performed with sagittal coronal reformats. Contrast used: mL of , (none if empty) Oral contrast used: without Oral Contrast (none if empty) FINDINGS: LOWER CHEST: Atherosclerosis of the coronary arteries. ABDOMEN LIVER: Unremarkable GALLBLADDER AND BILE DUCTS: Gallbladder surgically absent. PANCREAS: Unremarkable. SPLEEN: Unremarkable. ADRENAL GLANDS: Unremarkable. KIDNEYS AND URETERS: Atrophic kidneys bilaterally. No evidence of hydronephrosis or renal calculus. T he ureters are unremarkable. Pelvic transplant kidney without evidence for obstructive uropathy or r enal calculus. PELVIS BLADDER: Mild haziness around the urinary bladder [place]. The bladder is incompletely distended. REPRODUCTIVE: Unremarkable. ABDOMEN & PELVIS STOMACH AND BOWEL: No evidence of bowel obstruction. The appendix is normal. PERITONEUM/RETROPERITONEUM: No evidence of pneumoperitoneum or free fluid. VASCULATURE: No evidence of aortic aneurysm. Large severe atherosclerosis of the arterial vasculature . MUSCULOSKELETAL: No acute osseous abnormalities. Multilevel degeneration changes of the lumbar spine with disc space narrowing, osteophytes and facet joint arthropathy. Complete disc height loss at L3-L 4 is present. There is moderate bilateral L3-L4 and L4-L5 neural foraminal stenosis. No evidence for spinal fractur e. Spinal canal stenosis worse at L3-L4 and L4-L5 with severe spinal canal stenosis secondary to disc bulge and facet joint arthropathy. LYMPH NODES: No gross evidence for lymphadenopathy. SOFT TISSUE/ABDOMINAL WALL: Unremarkable IMPRESSION: 1. Atrophic [place] kidneys with right pelvic kidney without evidence for hydronephrosis or obstructi ve calculus. 2. Mild haziness around the bladder lumen correlate with urinalysis for cystitis. 3. Normal appendix. 4. Severe L4-L5 and L3-L4 spinal canal stenosis. Further evaluation with MRI may be of benefit. 5. Multilevel degeneration changes throughout the spine without evidence of fracture. There is moder ate L3-L4 and L4-L5 neural foraminal stenosis bilaterally.
[2024-05-22] MEDS ORDERED: MAG HYDROX/AL HYDROX/SIMETH 30 ML CUP PO PRN (21:10)
[2024-05-22] MEDS ORDERED: NALOXONE 0.4 MG/ML 1 ML VIAL IV PRN (21:10)
[2024-05-22] MEDS ORDERED: ACETAMINOPHEN TAB 325 MG TAB PO PRN (21:10)
[2024-05-22] MEDS: CEFEPIME 2 GM in SODIUM CHLORIDE 0.9% 100 ML IVPB STA (21:29)
[2024-05-22] MEDS: ASPIRIN 81 MG PO SCH (21:46)
[2024-05-22] MEDS: ERGOCALCIFEROL 1,250 MCG (50,000 IU) CAPSULE PO SCH (21:46)
[2024-05-22] MEDS: APIXABAN 5 MG TAB PO SCH (22:09)
[2024-05-22] MEDS: carvediloL 3.125 MG TAB PO SCH (22:09)
[2024-05-22] MEDS: TACROLIMUS 1 MG CAP PO SCH (22:10)
[2024-05-22] MEDS: HYDROcodone/APAP 5-325MG 1 EACH TAB PO PRN (22:18)
[2024-05-22] MEDS: ALPRAZolam 0.25 MG TAB PO PRN (23:59)
[2024-05-23 05:42] LABS: Glucose,Whole Blood 122 mg/dL (70-110)
[2024-05-23] MEDS: LEVOTHYROXINE 75 MCG TAB PO SCH (06:38)
[2024-05-23] MEDS ORDERED: MIDODRINE 5 MG TAB PO PRN (06:50)
[2024-05-23 07:17] LABS: Glucose,Whole Blood 133 mg/dL (70-110)
[2024-05-23] MEDS: SODIUM CHLORIDE 0.9% 500 ML 500 ML IV ONE ×2 (07:48→14:21)
[2024-05-23] MEDS: FERROUS SULFATE 325 MG TAB PO SCH (08:54)
[2024-05-23] MEDS: FAMOTIDINE 20 MG TAB PO SCH (08:54)
[2024-05-23] MEDS: LACTOBACILLUS ACIDOPHILUS/PECT 1 EACH CAPSULE PO SCH (08:54)
[2024-05-23] MEDS: ATORVASTATIN 20 MG TAB PO SCH (08:55)
[2024-05-23] MEDS: MAGNESIUM OXIDE 400 MG TAB PO SCH (08:55)
[2024-05-23] MEDS: DULoxetine HCL 20 MG CAPSULE.DR PO SCH (08:56)
[2024-05-23] MEDS: NON FORMULARY DRUG (Insulin Glargine/Lixisenatide [Soliqua 100 Unit-33 Mcg/Ml Pen] 3 ML In SQ SCH (08:56)
[2024-05-23] MEDS: DAPAGLIFLOZIN PROPANEDIOL 10 MG TABLET PO SCH (09:01)
[2024-05-23] MEDS ORDERED: PROMETHAZINE 25 MG TAB PO STA (12:01)
[2024-05-23] MEDS ORDERED: PROMETHAZINE 25 MG TAB PO PRN (12:01)
[2024-05-23 12:05] LABS: Glucose,Whole Blood 189 mg/dL (70-110)
[2024-05-23] MEDS: PROMETHAZINE HCL 6.25 MG/5 ML CUP PO STA (12:52)
[2024-05-23] MEDS: MORPHINE SULFATE 4 MG/ML SYRINGE IVP PRN (13:47)
[2024-05-23] MEDS: DEXAMETHASONE SOD PHOSPHATE 10 MG/ML 1 ML VIAL IVP STA (13:47)
[2024-05-23] MEDS: PROMETHAZINE HCL 6.25 MG/5 ML CUP PO PRN (14:21)
--- NOTE | 2024-05-23 14:24 | P.CNOR ---
History of Present Illness - [facility] Consult date: 05/23/24 Consult reason: other (Spinal stenosis) History of present illness: Patient is a 58-year-old female who presented to [facility] for evaluation of low back pain/flank pain/concerns for UTI. Patient was admitted to [facility] for further evaluation. A lumbar CT scan was ordered which demonstrated significant spondylosis with varying degrees of stenosis, orthopedic team was then consulted. Patient was evaluated today at bedside, she is resting in her hospital bed. Patient states since May 01 she has been dealing with the symptoms. She has been to [facility] on multiple occasions, she has been tried on a couple different oral antibiotics for possible UTI. Patient has a relatively detailed medical history, this to include a kidney transplant, insulin-dependent diabetic. 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 Patient denies any previous surgery to her lumbar spine. She has had a pretty significant vascular surgery to her left lower extremity which a recent follow- up demonstrated adequate flow in that extremity. Patient states that the left lateral thigh has been the most involved with a radiating type pain, it is started to affect the right lateral thigh. She gets occasional pain into the groin on both sides. She does admit to some centralized low back pain also. She denies any martin weakness that she has noticed in the bilateral lower extremities. Patient states that she is not very active, she does utilize a cane. She denies any obvious numbness or tingling to the extremities. She denies any loss of bowel or bladder function at this time. She denies any numbness or tingling to the genital or perineal region. 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 Right shoulder problems. Bloating. Anemia. Hx kidney transplant 2011(unsure which kidney) due to Diabetes. Hx Covid 04/2021, was hospitalized for 1 week, then air lifted to [place], was there for 2 months, had tracheostomy, DVT's in left leg and was in coma for 3 days. History of Any Multi-Drug Resistant Organisms: None Reported Past Surgical History: Cholecystectomy Additional Past Surgical History / Comment(s): Kidney transplant 2012, hx tracheostomy with reversal, left leg bypass due to DVT's, colonoscopy, EGD, cataract surgery. Past Anesthesia/Blood Transfusion Reactions: No Reported Reaction Past Psychological History: Anxiety Smoking Status: Former smoker Past Alcohol Use History: None Reported Past Drug Use History: None Reported - Past Family History Mother Family Medical History: Cancer Additional Family Medical History / Comment(s): Breast cancer. Medications and Allergies Home Medications Medication Instructions Recorded Confirmed Type Atorvastatin [Lipitor] 20 mg PO DAILY 05/02/21 05/22/24 History Insulin Aspart [NovoLOG Flexpen] See Protocol SQ AC-TID 05/02/21 05/22/24 History Levothyroxine Sodium [Synthroid] 75 mcg PO DAILY 05/02/21 05/22/24 History Magnesium Oxide 400 mg PO DAILY 05/02/21 05/22/24 History Apixaban [Eliquis] 5 mg PO BID 09/24/22 05/22/24 History Aspirin EC [Ecotrin Low Dose] 81 mg PO Q2D 09/24/22 05/22/24 History Tacrolimus [Prograf] 2 mg PO BID 09/24/22 05/22/24 History mycophenolate mofetiL [Cellcept] 1,500 mg PO BID 09/24/22 05/22/24 History ALPRAZolam [Xanax] 0.25 mg PO DAILY PRN 02/26/24 05/22/24 History Dapagliflozin Propanediol [Farxiga] 10 mg PO DAILY 02/26/24 05/22/24 History Ergocalciferol [Vitamin D2 (1250 1,250 mcg PO Q14D 02/26/24 05/22/24 History Mcg = 33428 Iu)] Ferrous Sulfate [Feosol] 325 mg PO BID 02/26/24 05/22/24 History Insulin Glargine/Lixisenatide 28 units SQ DAILY 02/26/24 05/22/24 History [Soliqua 100 Unit-33 Mcg/ml Pen] calcitrioL 0.25 mcg PO FR 02/26/24 05/22/24 History carvediloL [Coreg] 3.125 mg PO BID 02/26/24 05/22/24 History Epoetin Sriram [Procrit] 10,000 unit SQ FR 03/14/24 05/22/24 History DULoxetine HCL [Cymbalta] 20 mg PO DAILY 05/22/24 05/22/24 History HYDROcodone/APAP 5-325MG [[place] 1 tab PO Q6H PRN 05/22/24 05/22/24 History 5-325] L.acidoph,Paracasei, B.lactis 1 cap PO DAILY 05/22/24 05/22/24 History [Probiotic] Allergies Allergy/AdvReac Type Severity Reaction Status Date / Time clindamycin Allergy Rash/Hives Verified 05/22/24 19:03 sulfamethoxazole AdvReac "too Verified 05/22/24 19:03 [From Bactrim] strong" trimethoprim [From Bactrim] AdvReac "too Verified 05/22/24 19:03 strong" Physical Examination Gen: AOx3, NAD VSS stable at this time Integument: No open lesions or sores are visualized throughout the cervical, thoracic or lumbar spine Palpation: Mild tenderness in the paraspinal region of the lower lumbar/sacral region ROM: Full range of motion in all major muscle groups of the bilateral upper and lower extremities, no focal deficits appreciated Sensory Exam: Senory exam to light touch is intact C5-T1 Senosry exam to light touch is intact L2-S1 Motor: 5/5 strength appreciated in the bilateral upper extremities with shoulder elevation, shoulder abduction, elbow extension, elbow flexion, wrist extension, wrist flexion, 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 4+/5 strength appreciated in the bilateral lower extremities with hip flexion, knee extension, knee flexion, plantarflexion, dorsiflexion right, EHL, FHL 4-/5 strength appreciate the left lower extremity with dorsiflexion Reflexes: 2/4 in all UE and LE Negative Tulio's bilaterally Babinski bilaterally Negative clonus bilaterally Special Test: Negative straight leg raise Logroll maneuver reproduces no groin pain bilaterally Results - Labs Labs: Abnormal Lab Results - Last 24 Hours (Table) 05/22/24 05/22/24 05/22/24 Range/Units 18:50 18:50 18:50 WBC 3.5 L (3.8-10.6) k/uL RBC 3.12 L (3.80-5.40) m/uL Hgb 8.0 L (11.4-16.0) gm/dL Hct 26.8 L (34.0-46.0) % MCHC 29.9 L (31.0-37.0) g/dL RDW 17.4 H (11.5-15.5) % Lymphocytes # 0.3 L (1.0-4.8) k/uL Sodium 131 L (137-145) mmol/L Potassium 5.4 H (3.5-5.1) mmol/L Carbon Dioxide 20 L (22-30) mmol/L BUN 25 H (7-17) mg/dL Glucose 163 H (74-99) mg/dL POC Glucose (mg/dL) (70-110) mg/dL C-Reactive Protein 2.3 H (<1.0) mg/dL Urine Appearance Cloudy H (Clear) Urine Glucose (UA) 4+ H (Negative) Urine Blood Trace H (Negative) Ur Leukocyte Esterase Large H (Negative) Urine WBC >182 H (0-5) /hpf Urine WBC Clumps Many H (None) /hpf Urine Bacteria Rare H (None) /hpf Urine Mucus Rare H (None) /hpf 05/23/24 05/23/24 05/23/24 Range/Units 05:39 07:07 12:03 WBC (3.8-10.6) k/uL RBC (3.80-5.40) m/uL Hgb (11.4-16.0) gm/dL Hct (34.0-46.0) % MCHC (31.0-37.0) g/dL RDW (11.5-15.5) % Lymphocytes # (1.0-4.8) k/uL Sodium (137-145) mmol/L Potassium (3.5-5.1) mmol/L Carbon Dioxide (22-30) mmol/L BUN (7-17) mg/dL Glucose (74-99) mg/dL POC Glucose (mg/dL) 122 H 133 H 189 H (70-110) mg/dL C-Reactive Protein (<1.0) mg/dL Urine Appearance (Clear) Urine Glucose (UA) (Negative) Urine Blood (Negative) Ur Leukocyte Esterase (Negative) Urine WBC (0-5) /hpf Urine WBC Clumps (None) /hpf Urine Bacteria (None) /hpf Urine Mucus (None) /hpf H & H 05/22/24 Range/Units 18:50 Hgb 8.0 L (11.4-16.0) gm/dL Hct 26.8 L (34.0-46.0) % Coagulation 05/22/24 Range/Units 18:50 INR 1.1 (<1.2) Result Diagrams: 05/22/24 18:50 05/22/24 18:50 - Diagnostic results CT Scan - lumbar: report reviewed, image reviewed (Images and reports reviewed of the lumbar spine. No acute fractures or dislocations. Multilevel lumbar spondylosis, worse at L3-L4 and L4-L5, there is varying degrees of neuroforaminal stenosis and central canal stenosis in this region) Assessment and Plan Assessment: Low back pain Bilateral lower extremity radiculopathy Left lower extremity weakness, history of previous vascular surgery to the lower leg Multilevel lumbar spondylosis Severe bilateral neuroforaminal stenosis L3-L4, L4-L5 Central canal stenosis L3-L4, L4-L5 Multiple medical comorbidities Plan: I was able to discuss the case, this to include both physical exam findings and imaging studies my attending Dr. Jackson sent. No emergent orthopedic surgical intervention recommended at this time Internal medicine did place an order for a high-dose burst of IV steroids followed by a scheduled dose every 6 hours of Decadron Consult has been placed for pain management for possible SINDY Conservative measures also to include possible use of gabapentin, muscle relaxers, PT/OT evaluation We discussed the possibility of an MRI, patient is very claustrophobic and would like to hold off on this time. She is not interested in surgical intervention currently GI and DVT prophylaxis per primary medical service Other medical specialty recommendations Will continue to follow patient during hospital stay Time with Patient: Less than 30
--- NOTE | 2024-05-23 14:55 | P.HPIM ---
History of Present Illness This is a pleasant 58 years old female with past medical history of multiple medical problems including Blood Disorder, Diabetes Mellitus, Deep Vein Thrombosis (DVT), Eye Disorder, Hearing Disorder / Deafness, Hyperlipidemia, Hypertension, hypothyroidism, extremely hard of hearing in left ear. Right shoulder problems. Bloating. Anemia. Hx kidney transplant 2011(unsure which kidney) due to Diabetes. Hx Covid 04/2021, was hospitalized for 1 week, then air lifted to [place], was there for 2 months, had tracheostomy, DVT's in left leg and was in coma for 3 days. Patient was in this facility about 1 month earlier and she was diagnosed with UTI, she has lower abdominal pain. She comes because of worsening lower abdominal pain about 6/10 in severity in the left lower area, nonspecific in character, actually radiating to the back w ith partial relief with topical measures like cold/ice packages. Pain could be referred from her lower back, patient at baseline uses a cane and she has history of degenerative disc disease, she works for various distances, over the last 2 months she has to stop because of her pain. She denies weakness or tingling in her lower extremities, and actually once her pain was controlled with that she was able to walk to the bathroom using her cane, gait is at normal pace She is also complaining from little dysuria and some decreased frequency thinking she has UTI However there is no suprapubic or flank tenderness She vomited bile once this morning, she tried Zofran and Phenergan with no much help Bowel movement is normal She has dizziness earlier when she stood up currently she does not feel dizzy, no headache, no new weakness or tingling in both upper and lower extremities She has history of kidney transplant and follow-up with Dr. Farias. 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 And she follow-up with deck officer. Her PCP is Dr. Heard She denies smoking alcohol or illicit drugs. She is afebrile and rest of vitals look stable, blood pressure was on the low side earlier 84/43 currently better 105/60 2:04 boluses of 500 mL of normal saline. Labs reviewed showing WBC 3.5, hemoglobin 8.0, platelet normal Sodium slightly low 131, potassium 5.4 Urinalysis suspicious of UTI Lumbar CT showing right pelvic kidney with no hydronephrosis or stone, also shares has mild haziness around the urinary bladder suspicious for cystitis. Patient has severe L4-L5 and L3-L4 spinal canal stenosis, no fracture but there is severe degenerative disc disease Patient currently is on Eliquis which is continued Patient was requesting pain medication morphine, however she states once dexamethasone 10 mg was given to her she has drastic improvement in her relief of pain and her pain is currently minimal. And again with no weakness or tingling in the lower extremity and gait is normal Patient already evaluated by orthopedic team and they recommended no surgical treatment. Patient also not interested in an MRI per their recommendation as she is severely claustrophobic Review of Systems Review of systems CONSTITUTIONAL: No fever, no malaise, no fatigue. HEENT: No recent visual problems or hearing problems. Denied any sore throat. CARDIOVASCULAR: No orthopnea, PND, no palpitations, no syncope. PULMONARY: No shortness of breath, no cough, no hemoptysis. GASTROINTESTINAL: No diarrhea, no nausea, no vomiting, no abdominal pain. Normoactive bowel sounds. NEUROLOGICAL: No headaches, no weakness, no numbness. HEMATOLOGICAL: Denies any bleeding or petechiae. GENITOURINARY: Denies any burning micturition, frequency, or urgency. MUSCULOSKELETAL/RHEUMATOLOGICAL: Denies any joint pain, swelling, or any muscle pain. ENDOCRINE: Denies any polyuria or polydipsia. 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 Right shoulder problems. Bloating. Anemia. Hx kidney transplant 2011(unsure which kidney) due to Diabetes. Hx Covid 04/2021, was hospitalized for 1 week, then air lifted to [place], was there for 2 months, had tracheostomy, DVT's in left leg and was in coma for 3 days. History of Any Multi-Drug Resistant Organisms: None Reported Past Surgical History: Cholecystectomy Additional Past Surgical History / Comment(s): Kidney transplant 2011, hx tracheostomy with reversal, left leg bypass due to DVT's, colonoscopy, EGD, cataract surgery. Past Anesthesia/Blood Transfusion Reactions: No Reported Reaction Past Psychological History: Anxiety Smoking Status: Former smoker Past Alcohol Use History: None Reported Past Drug Use History: None Reported - Past Family History Mother Family Medical History: Cancer Additional Family Medical History / Comment(s): Breast cancer. Medications and Allergies Home Medications Medication Instructions Recorded Confirmed Type Atorvastatin [Lipitor] 20 mg PO DAILY 05/02/21 05/22/24 History Insulin Aspart [NovoLOG Flexpen] See Protocol SQ AC-TID 05/02/21 05/22/24 History Levothyroxine Sodium [Synthroid] 75 mcg PO DAILY 05/02/21 05/22/24 History Magnesium Oxide 400 mg PO DAILY 05/02/21 05/22/24 History Apixaban [Eliquis] 5 mg PO BID 09/24/22 05/22/24 History Aspirin EC [Ecotrin Low Dose] 81 mg PO Q2D 09/24/22 05/22/24 History Tacrolimus [Prograf] 2 mg PO BID 09/24/22 05/22/24 History mycophenolate mofetiL [Cellcept] 1,500 mg PO BID 09/24/22 05/22/24 History ALPRAZolam [Xanax] 0.25 mg PO DAILY PRN 02/26/24 05/22/24 History Dapagliflozin Propanediol [Farxiga] 10 mg PO DAILY 02/26/24 05/22/24 History Ergocalciferol [Vitamin D2 (1250 1,250 mcg PO Q14D 02/26/24 05/22/24 History Mcg = 34417 Iu)] Ferrous Sulfate [Feosol] 325 mg PO BID 02/26/24 05/22/24 History Insulin Glargine/Lixisenatide 28 units SQ DAILY 02/26/24 05/22/24 History [Soliqua 100 Unit-33 Mcg/ml Pen] calcitrioL 0.25 mcg PO FR 02/26/24 05/22/24 History carvediloL [Coreg] 3.125 mg PO BID 02/26/24 05/22/24 History Epoetin Sriram [Procrit] 10,000 unit SQ FR 03/14/24 05/22/24 History DULoxetine HCL [Cymbalta] 20 mg PO DAILY 05/22/24 05/22/24 History HYDROcodone/APAP 5-325MG [[place] 1 tab PO Q6H PRN 05/22/24 05/22/24 History 5-325] L.acidoph,Paracasei, B.lactis 1 cap PO DAILY 05/22/24 05/22/24 History [Probiotic] Allergies Allergy/AdvReac Type Severity Reaction Status Date / Time clindamycin Allergy Rash/Hives Verified 05/22/24 19:03 sulfamethoxazole AdvReac "too Verified 05/22/24 19:03 [From Bactrim] strong" trimethoprim [From Bactrim] AdvReac "too Verified 05/22/24 19:03 strong" Physical Exam Vitals: Vital Signs Temp Pulse Pulse Pulse Pulse Pulse Resp 05/23/24 07:44 98.4 F 65 65 64 17 05/23/24 06:00 05/23/24 05:45 05/23/24 02:00 97.7 F 58 L 15 05/22/24 23:03 98.1 F 71 18 05/22/24 21:53 72 18 05/22/24 19:55 68 18 05/22/24 17:23 98.2 F 66 16 BP BP BP BP Pulse Ox 05/23/24 07:44 90/45 83/42 84/43 05/23/24 06:00 105/64 05/23/24 05:45 63/35 05/23/24 02:00 84/47 96 05/22/24 23:03 135/61 95 05/22/24 21:53 138/61 98 05/22/24 19:55 101/46 96 05/22/24 17:23 125/50 95 Intake and Output 05/22/24 05/23/24 05/23/24 22:59 06:59 14:59 Other: Voiding Method Toilet Toilet # Voids 1 Weight 92.986 kg GENERAL: The patient is alert and oriented x3, not in any acute distress. Well developed, well nourished. HEENT: Pupils are round and equally reacting to light. EOMI. No scleral icterus. No conjunctival pallor. Normocephalic, atraumatic. No pharyngeal erythema. No thyromegaly. CARDIOVASCULAR: S1 and S2 present. No murmurs, rubs, or gallops. PULMONARY: Chest is clear to auscultation, no wheezing , no crackles. ABDOMEN: Soft, nontender, nondistended, normoactive bowel sounds. No palpable organomegaly. MUSCULOSKELETAL: No joint swelling or deformity. EXTREMITIES: No cyanosis, clubbing, or pedal edema. NEUROLOGICAL: Gross neurological examination did not reveal any focal deficits. SKIN: No rashes. no petechiae. -Gait: Normal (she uses her cane at bedside), no ataxia Results CBC & Chem 7: 05/22/24 18:50 05/22/24 18:50 Labs: Abnormal Lab Results - Last 24 Hours (Table) 05/22/24 05/22/24 05/22/24 Range/Units 18:50 18:50 18:50 WBC 3.5 L (3.8-10.6) k/uL RBC 3.12 L (3.80-5.40) m/uL Hgb 8.0 L (11.4-16.0) gm/dL Hct 26.8 L (34.0-46.0) % MCHC 29.9 L (31.0-37.0) g/dL RDW 17.4 H (11.5-15.5) % Lymphocytes # 0.3 L (1.0-4.8) k/uL Sodium 131 L (137-145) mmol/L Potassium 5.4 H (3.5-5.1) mmol/L Carbon Dioxide 20 L (22-30) mmol/L BUN 25 H (7-17) mg/dL Glucose 163 H (74-99) mg/dL POC Glucose (mg/dL) (70-110) mg/dL C-Reactive Protein 2.3 H (<1.0) mg/dL Urine Appearance Cloudy H (Clear) Urine Glucose (UA) 4+ H (Negative) Urine Blood Trace H (Negative) Ur Leukocyte Esterase Large H (Negative) Urine WBC >182 H (0-5) /hpf Urine WBC Clumps Many H (None) /hpf Urine Bacteria Rare H (None) /hpf Urine Mucus Rare H (None) /hpf 05/23/24 05/23/24 05/23/24 Range/Units 05:39 07:07 12:03 WBC (3.8-10.6) k/uL RBC (3.80-5.40) m/uL Hgb (11.4-16.0) gm/dL Hct (34.0-46.0) % MCHC (31.0-37.0) g/dL RDW (11.5-15.5) % Lymphocytes # (1.0-4.8) k/uL Sodium (137-145) mmol/L Potassium (3.5-5.1) mmol/L Carbon Dioxide (22-30) mmol/L BUN (7-17) mg/dL Glucose (74-99) mg/dL POC Glucose (mg/dL) 122 H 133 H 189 H (70-110) mg/dL C-Reactive Protein (<1.0) mg/dL Urine Appearance (Clear) Urine Glucose (UA) (Negative) Urine Blood (Negative) Ur Leukocyte Esterase (Negative) Urine WBC (0-5) /hpf Urine WBC Clumps (None) /hpf Urine Bacteria (None) /hpf Urine Mucus (None) /hpf Thrombosis Risk Factor Assmnt - Choose All That Apply Any of the Below Risk Factors Present?: Yes Each Factor Represents 1 point: Age 41-60 years, Obesity (BMI >25) Other Risk Factors: Yes Each Risk Factor Represents 3 Points: History of DVT/PE Other congenital or acquired thrombophilia - If yes, enter type in comment: No Thrombosis Risk Factor Assessment Total Risk Factor Score: 5 Thrombosis Risk Factor Assessment Level: High Risk Assessment and Plan Assessment: Severe lower abdominal pain could be combination of UTI and spinal disease Severe spinal canal stenosis of L3-L4 and L4-L5 with no lower extremity weakness or tingling Acute urinary tract infection History of kidney transplant, 1 right pelvic kidney, she is on Prograf and follow-up with Dr. Farias Left leg DVT on Eliquis at home Right eye blindness Severe hearing difficulty in the left ear Chronic kidney disease stage III Obesity with BMI of 37.5 Plan: Continue with dexamethasone and can be switched to oral dose tomorrow Continue with pain management Orthopedic team evaluated the patient and they recommend to continue with conservative management per their recommendation Continue with ceftriaxone and follow-up urine culture Will consult nephrology service as she is followed for kidney transplant Labs and medication were reviewed.. Continue same treatment. Continue with symptomatic treatment. Resume home medication. Monitor labs and vitals. DVT and GI prophylaxis. Further recommendations as per clinical course of the patient DVT prophylaxis: Eliquis GI Prophylaxis: Pepcid PT/OT: Pending Prognosis is guarded
[2024-05-23 17:03] LABS: Glucose,Whole Blood 259 mg/dL (70-110)
[2024-05-23] MEDS: INSULIN ASPART (NovoLOG) 100 UNIT/ML VIAL SQ SCH (17:53)
[2024-05-23] MEDS: DEXAMETHASONE SOD PHOSPHATE 4 MG/ML 1 ML VIAL IVP SCH (17:53)
[2024-05-23 20:28] LABS: Glucose,Whole Blood 330 mg/dL (70-110)
[2024-05-23] MEDS: INSULIN DETEMIR (LEVEMIR) 100 UNIT/ML SYR SQ SCH (21:17)
[2024-05-24 07:02] LABS: Glucose,Whole Blood 310 mg/dL (70-110)
[2024-05-24] MEDS: dexAMETHasone 4 MG TAB PO SCH (08:22)
[2024-05-24] MEDS: CALCIUM CARBONATE 500 MG CHEWABLE PO PRN (11:52)
[2024-05-24 12:14] LABS: Glucose,Whole Blood 302 mg/dL (70-110)
[2024-05-24 12:43] VITALS: RESP 16
--- NOTE | 2024-05-24 13:38 | P.PN ---
Subjective Progress Note Date: 05/24/24 Principal diagnosis: low back pain Patient was examined today at bedside, she is sitting up in her hospital bed. Patient is feeling a lot better today, she did receive IV steroids yesterday. She was able to ambulate with minimal assistance and minimal pain. Consult was placed for pain management to evaluate for future workup, this to include the possibility of SINDY. Objective - Vital Signs Vital signs: Vital Signs Temp 97.7 F 05/24/24 12:42 Pulse 76 05/24/24 12:42 Resp 16 05/24/24 12:42 BP 95/57 05/24/24 12:42 Pulse Ox 94 L 05/24/24 12:42 FiO2 Intake & Output 05/23/24 05/24/24 05/24/24 18:59 06:59 18:59 Intake Total 780 240 Balance 780 240 Intake: Oral 780 240 Other: Voiding Method Toilet Toilet Toilet # Voids 3 3 - Exam Gen: AOx3, NAD VSS stable at this time Integument: No open lesions or sores are visualized throughout the cervical, thoracic or lumbar spine Palpation: Mild tenderness in the paraspinal region of the lower lumbar/sacral region ROM: Full range of motion in all major muscle groups of the bilateral upper and lower extremities, no focal deficits appreciated Sensory Exam: Senory exam to light touch is intact C5-T1 Senosry exam to light touch is intact L2-S1 Motor: 5/5 strength appreciated in the bilateral upper extremities with shoulder elevation, shoulder abduction, elbow extension, elbow flexion, wrist extension, wrist flexion, 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 4+/5 strength appreciated in the bilateral lower extremities with hip flexion, knee extension, knee flexion, plantarflexion, dorsiflexion right, EHL, FHL 4-/5 strength appreciate the left lower extremity with dorsiflexion Reflexes: 2/4 in all UE and LE Negative Tulio's bilaterally Babinski bilaterally Negative clonus bilaterally Special Test: Negative straight leg raise Logroll maneuver reproduces no groin pain bilaterally - Labs CBC & Chem 7: 05/22/24 18:50 05/22/24 18:50 Labs: Abnormal Lab Results - Last 24 Hours (Table) 05/23/24 05/23/24 05/24/24 Range/Units 16:59 20:27 07:00 POC Glucose (mg/dL) 259 H 330 H 310 H (70-110) mg/dL 05/24/24 Range/Units 12:13 POC Glucose (mg/dL) 302 H (70-110) mg/dL Microbiology - Last 24 Hours (Table) 05/22/24 18:50 Urine Culture - Preliminary Urine,Clean Catch Gram Neg Bacilli Assessment and Plan Assessment: Low back pain Bilateral lower extremity radiculopathy Left lower extremity weakness, history of previous vascular surgery to the lower leg Multilevel lumbar spondylosis Severe bilateral neuroforaminal stenosis L3-L4, L4-L5 Central canal stenosis L3-L4, L4-L5 Multiple medical comorbidities Plan: Conservative measures also to include possible use of gabapentin, muscle relaxers, PT/OT evaluation Pain management recommendations appreciate No further imaging studies recommended at this time GI and DVT prophylaxis per primary medical service Other medical specialty recommendations Discharge planning: On an orthopedic standpoint patient remained stable. Pending pain management's recommendations and possible follow-up, I feel patient is stable for discharge to home. Recommending patient follow-up in our office setting in the next 2 to 3 weeks for recheck of symptoms. Please contact our service with any further questions regarding this patient.
--- NOTE | 2024-05-24 14:32 | P.PN ---
Subjective This is a pleasant 58 years old female with past medical history of multiple medical problems including Blood Disorder, Diabetes Mellitus, Deep Vein Thrombosis (DVT), Eye Disorder, Hearing Disorder / Deafness, Hyperlipidemia, Hypertension, hypothyroidism, extremely hard of hearing in left ear. Right shoulder problems. Bloating. Anemia. Hx kidney transplant 2011(unsure which kidney) due to Diabetes. Hx Covid 04/2021, was hospitalized for 1 week, then air lifted to [place], was there for 2 months, had tracheostomy, DVT's in left leg and was in coma for 3 days. Patient was in this facility about 1 month earlier and she was diagnosed with UTI, she has lower abdominal pain. She comes because of worsening lower abdominal pain about 6/10 in severity in the left lower area, nonspecific in character, actually radiating to the back with partial relief with topical measures like cold/ice packages. Pain could be referred from her lower back, patient at baseline uses a cane and she has history of degenerative disc disease, she works for various distances, over the last 2 months she has to stop because of her pain. She denies weakness or tingling in her lower extremities, and actually once her pain was controlled with that she was able to walk to the bathroom using her cane, gait is at normal pace She is also complaining from little dysuria and some decreased frequency thinking she has UTI However there is no suprapubic or flank tenderness She vomited bile once this morning, she tried Zofran and Phenergan with no much help Bowel movement is normal She has dizziness earlier when she stood up currently she does not feel dizzy, no headache, no new weakness or tingling in both upper and lower extremities She has history of kidney transplant and follow-up with Dr. Farias. 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 Her PCP is Dr. Heard She denies smoking alcohol or illicit drugs. She is afebrile and rest of vitals look stable, blood pressure was on the low side earlier 84/43 currently better 105/60 2:04 boluses of 500 mL of normal saline. Labs reviewed showing WBC 3.5, hemoglobin 8.0, platelet normal Sodium slightly low 131, potassium 5.4 Urinalysis suspicious of UTI Lumbar CT showing right pelvic kidney with no hydronephrosis or stone, also shares has mild haziness around the urinary bladder suspicious for cystitis. Patient has severe L4-L5 and L3-L4 spinal canal stenosis, no fracture but there is severe degenerative disc disease Patient currently is on Eliquis which is continued Patient was requesting pain medication morphine, however she states once dexamethasone 10 mg was given to her she has drastic improvement in her relief of pain and her pain is currently minimal. And again with no weakness or tingling in the lower extremity and gait is normal Patient already evaluated by orthopedic team and they recommended no surgical treatment. Patient also not interested in an MRI per their recommendation as she is severely claustrophobic 05/24 Patient back pain is improved today, 0/10. Orthopedic team already evaluated the patient, no surgical intervention for now Gait is tested and at baseline currently She is placed on tapered dexamethasone She has some urinary symptoms related to her UTI secondary to gram-negative bacilli Continue with ceftriaxone Discussed with staff Review of systems CONSTITUTIONAL: No fever, no malaise, no fatigue. HEENT: No recent visual problems or hearing problems. Denied any sore throat. CARDIOVASCULAR: No orthopnea, PND, no palpitations, no syncope. PULMONARY: No shortness of breath, no cough, no hemoptysis. GASTROINTESTINAL: No diarrhea, no nausea, no vomiting, no abdominal pain. Normoactive bowel sounds. NEUROLOGICAL: No headaches, no weakness, no numbness. Active Medications Generic Name Dose Route Start Last Admin Trade Name Freq PRN Reason Stop Dose Admin Acetaminophen 650 mg 05/22/24 21:10 Acetaminophen Tab 325 Mg Tab PO Q6HR PRN Mild Pain or Fever > 100.5 Hydrocodone Bitart/Acetaminophen 1 each 05/22/24 21:10 05/23/24 08:52 Hydrocodone/Apap 5-325mg 1 Each Tab PO 1 each Q6HR PRN Administration Moderate Pain (Scale 4 to 6) Al Hydroxide/Mg Hydroxide 15 ml 05/22/24 21:10 Mag Hydrox/Al Hydrox/Simeth 30 Ml Cup PO Q6HR PRN Indigestion Alprazolam 0.25 mg 05/22/24 21:13 05/22/24 23:59 Alprazolam 0.25 Mg Tab PO 0.25 mg DAILY PRN Administration Anxiety Apixaban 5 mg 05/22/24 21:15 05/24/24 08:21 Apixaban 5 Mg Tab PO 5 mg BID WILLIAM Administration Protocol Aspirin 81 mg 05/22/24 21:15 05/24/24 08:21 Aspirin 81 Mg PO 81 mg Q2D@0900 WILLIAM Administration Atorvastatin Calcium 20 mg 05/23/24 09:00 05/24/24 08:21 Atorvastatin 20 Mg Tab PO 20 mg DAILY WILLIAM Administration Calcitriol 0.25 mcg 05/27/24 09:00 Calcitriol 0.25 Mcg Cap PO FR WILLIAM Calcium Carbonate/Glycine 1,000 mg 05/22/24 21:10 05/24/24 11:52 Calcium Carbonate 500 Mg Chewable PO 1,000 mg Q4HR PRN Administration Dyspepsia Carvedilol 3.125 mg 05/22/24 21:15 05/24/24 08:22 Carvedilol 3.125 Mg Tab PO 3.125 mg BID WILLIAM Administration Dapagliflozin 10 mg 05/23/24 09:00 05/24/24 08:23 Dapagliflozin Propanediol 10 Mg Tablet PO 10 mg DAILY WILLIAM Administration Dexamethasone 6 mg 05/25/24 09:00 Dexamethasone 2 Mg Tab PO 05/25/24 09:01 DAILY [facility] Dexamethasone 4 mg 05/26/24 09:00 Dexamethasone 4 Mg Tab PO 05/26/24 09:01 DAILY [facility] Dexamethasone 2 mg 05/27/24 09:00 Dexamethasone 2 Mg Tab PO 05/27/24 09:01 DAILY [facility] Dexamethasone 1 mg 05/28/24 09:00 Dexamethasone 0.5 Mg Tab PO DAILY [facility] Duloxetine HCl 20 mg 05/23/24 09:00 05/24/24 08:23 Duloxetine Hcl 20 Mg Capsule.Dr PO 20 mg DAILY WILLIAM Administration Ergocalciferol 1,250 mcg 05/22/24 21:15 05/22/24 21:46 Ergocalciferol 1,250 Mcg (50,000 Iu) Capsule PO Not Given Q14D [facility] Famotidine 20 mg 05/23/24 09:00 05/24/24 08:21 Famotidine 20 Mg Tab PO 20 mg DAILY WILLIAM Administration Ferrous Sulfate 325 mg 05/23/24 09:00 05/24/24 08:22 Ferrous Sulfate 325 Mg Tab PO 325 mg BID WILLIAM Administration Ceftriaxone Sodium 1 gm/ 50 mls @ 100 mls/hr 05/24/24 13:30 05/24/24 13:43 Sodium Chloride IVPB 100 mls/hr Q24HR WILLIAM Administration Protocol Insulin Aspart 0 unit 05/23/24 17:30 05/24/24 13:03 Insulin Aspart (Novolog) 100 Unit/Ml Vial SQ 8 unit ACHS WILLIAM Administration Protocol Insulin Detemir 15 unit 05/23/24 21:00 05/23/24 21:17 Insulin Detemir (Levemir) 100 Unit/Ml Syr SQ 15 unit HS WILLIAM Administration Lactobacillus Acidophilus 1 each 05/23/24 09:00 05/24/24 08:20 Lactobacillus Acidophilus/Pect 1 Each Capsule PO 1 each DAILY WILLIAM Administration Levothyroxine Sodium 75 mcg 05/23/24 06:00 05/24/24 06:31 Levothyroxine 75 Mcg Tab PO 75 mcg DAILY@0600 [facility] Administration Magnesium Oxide 400 mg 05/23/24 09:00 05/24/24 08:23 Magnesium Oxide 400 Mg Tab PO 400 mg DAILY [facility] Administration Midodrine 5 mg 05/23/24 06:50 Midodrine 5 Mg Tab PO AC-BID PRN Blood Pressure - Low Morphine Sulfate 4 mg 05/23/24 13:01 05/23/24 13:47 Morphine Sulfate 4 Mg/Ml Syringe IVP 4 mg Q4HR PRN Administration Pain Mycophenolate Mofetil 1,500 mg 05/22/24 21:15 05/24/24 08:24 Mycophenolate Mofetil 500 Mg Tab PO 1,500 mg BID [facility] Administration Naloxone HCl 0.2 mg 05/22/24 21:10 Naloxone 0.4 Mg/Ml 1 Ml Vial IV Q2M PRN Opioid Reversal Non-Formulary Medication 28 units 05/23/24 09:00 05/24/24 08:26 Insulin Glargine/Lixisenatide [Soliqua 100 Unit-33 Mcg/Ml Pen] SQ Not Given DAILY [facility] Promethazine HCl 12.5 mg 05/23/24 14:14 05/24/24 03:36 Promethazine Hcl 6.25 Mg/5 Ml Cup PO 12.5 mg Q6HR PRN Administration Nausea And Vomiting Tacrolimus 2 mg 05/22/24 21:15 05/24/24 08:23 Tacrolimus 1 Mg Cap PO 2 mg BID WILLIAM Administration Objective - Vital Signs Vital signs: Vital Signs Temp 97.7 F 05/24/24 12:42 Pulse 76 05/24/24 12:42 Resp 16 05/24/24 12:42 BP 95/57 05/24/24 12:42 Pulse Ox 94 L 05/24/24 12:42 FiO2 Intake & Output 05/23/24 05/24/24 05/24/24 18:59 06:59 18:59 Intake Total 780 480 Balance 780 480 Intake: Oral 780 480 Other: Voiding Method Toilet Toilet Toilet # Voids 3 3 - Exam GENERAL: The patient is alert and oriented x3, not in any acute distress. Well developed, well nourished. HEENT: Pupils are round and equally reacting to light. EOMI. No scleral icterus. No conjunctival pallor. Normocephalic, atraumatic. No pharyngeal erythema. No thyromegaly. CARDIOVASCULAR: S1 and S2 present. No murmurs, rubs, or gallops. PULMONARY: Chest is clear to auscultation, no wheezing , no crackles. ABDOMEN: Soft, nontender, nondistended, normoactive bowel sounds. No palpable organomegaly. MUSCULOSKELETAL: No joint swelling or deformity. EXTREMITIES: No cyanosis, clubbing, or pedal edema. NEUROLOGICAL: Gross neurological examination did not reveal any focal deficits. SKIN: No rashes. no petechiae. Gait: At baseline normal - Labs CBC & Chem 7: 05/22/24 18:50 05/22/24 18:50 Labs: Abnormal Lab Results - Last 24 Hours (Table) 05/23/24 05/23/24 05/24/24 Range/Units 16:59 20:27 07:00 POC Glucose (mg/dL) 259 H 330 H 310 H (70-110) mg/dL 05/24/24 Range/Units 12:13 POC Glucose (mg/dL) 302 H (70-110) mg/dL Microbiology - Last 24 Hours (Table) 05/22/24 18:50 Urine Culture - Preliminary Urine,Clean Catch Gram Neg Bacilli Assessment and Plan Assessment: Severe lower abdominal pain could be combination of UTI and spinal disease Severe spinal canal stenosis of L3-L4 and L4-L5 with no lower extremity weakness or tingling Acute urinary tract infection History of kidney transplant, 1 right pelvic kidney, she is on Prograf and follow-up with Dr. Farias Left leg DVT on Eliquis at home Right eye blindness Severe hearing difficulty in the left ear Chronic kidney disease stage III Obesity with BMI of 37.5 Plan: Continue with dexamethasone taper regiment Continue with pain management. Currently patient with no pain Orthopedic team evaluated the patient and they recommend to continue with conservative management per their recommendation Continue with ceftriaxone and follow-up urine culture Will consult nephrology service as she is followed for kidney transplant Labs and medication were reviewed.. Continue same treatment. Continue with symptomatic treatment. Resume home medication. Monitor labs and vitals. DVT and GI prophylaxis. Further recommendations as per clinical course of the patient DVT prophylaxis: Eliquis GI Prophylaxis: Pepcid PT/OT: Pending Prognosis is guarded
[2024-05-24 17:13] LABS: Glucose,Whole Blood 304 mg/dL (70-110)
[2024-05-24 20:25] LABS: Glucose,Whole Blood 314 mg/dL (70-110)
[2024-05-24] MEDS: polyethylene glycoL 3350 17 GM POWD.PACK PO SCH (22:49)
[2024-05-25 07:23] LABS: Glucose,Whole Blood 198 mg/dL (70-110)
[2024-05-25] MEDS: dexAMETHasone 2 MG TAB PO SCH (09:10)
[2024-05-25 11:49] LABS: Anisocytosis Slight; Basophils % (A) 0 %; Eosinophils % (A) 0 %; HCT 24.9 % (34.0-46.0); HGB 7.3 gm/dL (11.4-16.0); Hypochromasia Marked; Lymphocytes # (A) 0.3 k/uL (1.0-4.8); Lymphocytes % (A) 4 %; MCH 25.4 pg (25.0-35.0); MCHC 29.3 g/dL (31.0-37.0); MCV 86.9 fL (80.0-100.0); Mean Platelet Volume 8.3; Monocytes # (A) 0.1 k/uL (0-1.0); Monocytes % (A) 2 %; Neutrophils # (A) 5.5 k/uL (1.3-7.7); Neutrophils % (A) 93 %; Platelet Count 189 k/uL (150-450); RBC 2.87 m/uL (3.80-5.40); RDW 17.9 % (11.5-15.5); WBC 5.9 k/uL (3.8-10.6)
[2024-05-25 12:07] LABS: Glucose,Whole Blood 233 mg/dL (70-110)
[2024-05-25 12:12] LABS: African American GFR (CKD) 80 (>60 ml/min/1.73 sqM); Anion Gap 8 mmol/L; Blood Urea Nitrogen 38 mg/dL (7-17); Calcium 9.3 mg/dL (8.4-10.2); Carbon Dioxide 18 mmol/L (22-30); Chloride 109 mmol/L (98-107); Glucose 218 mg/dL (74-99); Magnesium 2.1 mg/dL (1.6-2.3); Non-African American GFR(CKD) 69 (>60 ml/min/1.73 sqM); Potassium 5.3 mmol/L (3.5-5.1); Sodium 135 mmol/L (137-145)
[2024-05-25 12:24] VITALS: BP 149/81; PULSE 69; TEMP 98.5
--- NOTE | 2024-05-25 13:03 | P.PAINPG ---
Objective - Vital Signs Vital signs: Vital Signs Temp 98.8 F 05/25/24 07:18 Pulse 71 05/25/24 07:18 Resp 16 05/25/24 07:18 BP 137/71 05/25/24 07:18 Pulse Ox 99 05/25/24 07:18 FiO2 Intake & Output 05/24/24 05/25/24 05/25/24 18:59 06:59 18:59 Intake Total 1800 Balance 1800 Intake: Oral 1800 Other: Voiding Method Toilet Toilet # Voids 6 3 # Bowel Movements 1 - Labs CBC & Chem 7: 05/25/24 11:34 05/25/24 11:34 Labs: Abnormal Lab Results - Last 24 Hours (Table) 05/24/24 05/24/24 05/24/24 Range/Units 12:13 17:11 20:24 POC Glucose (mg/dL) 302 H 304 H 314 H (70-110) mg/dL 05/25/24 Range/Units 07:22 POC Glucose (mg/dL) 198 H (70-110) mg/dL Microbiology - Last 24 Hours (Table) 05/22/24 18:50 Urine Culture - Preliminary Urine,Clean Catch Klebsiella pneumoniae PQRS Measure Charge Sheet Comment: HISTORY OF PRESENT ILLNESS: A 58 yr old inpatient female as a referral from [facility] presents today w severe and chronic secondary to radiculopathy, spondylosis and facet arthropathy without myelopathy for evaluation. Pt states pain level is provoked at 5 /10 in intensity, constant, localized in the center lumbar spine, predominantly axial, sharp in character w occasional shooting pain towards the R thigh. Pain is provoked by bending, lifting, twisting. Pain is alleviated by medications (Independence 5/325mg q6h prn, Tyl 650mg q6h prn, ASA 81mg QD), repositioning and rest . PMH: OA, NIDDM II, DVT, R Visual Loss, HoF, Hyperlipidemia, HTN, Hypothyroidism, Anxiety PSH: Renal Transplant (2011), Cholecystectomy, Hx Tracheostomy w Reversal, LLE Bypass due to DVTs, Colonoscopy/ EGD, Cataract Surgery SH: Former tobacco user, No ETOH abuse, No illicit drug use FH: Mo- Breast CA All: See list Meds: See list REVIEW OF ORGAN SYSTEMS: CONSTITUTIONAL: No fevers or chills. No recent weight loss. NEUROLOGICAL: + numbness and tingling along the distal extremities. No seizure disorders or headaches. MUSCULOSKELETAL: + pain PSYCHIATRIC: Denies current depression or suicidal thoughts. Physical Examinations : Constitutional : Cooperative , not in acute distress . Neurologic : Cranial nerve II to XII intact. No focal neurological deficits. Psychiatric : alert & oriented x 3. Matching mood & appropriate affect. Judgment & insight intact. Musculoskeletal : Cervical Spine Motor strength in the deltoid and biceps: Normal right side. Normal Left side Motor strength biceps and the wrist extensors: Normal right side . Normal left side Motor strength in the triceps muscle: Normal right side. Normal left side Deep tendon reflexes: Normal at the biceps. Normal at Brachioradialis. Normal at triceps Vertebral body tenderness to deep palpation over Cervical facet loading test: positive bilaterally Spurling test: positive bilaterally Neck distraction test: positive b ilaterally Tulio sign: positive bilaterally Lumbar spine Motor strength lower extremities ,thigh and legs 5/5 Right side , 5/5 Left side Deep tendon reflexes : Normal Knee Jerk. Normal Ankle Jerk Vertebral body tenderness over L3 Canas Test positive R> L L3-L4 Lumbar facet Loading Test: positive Right / positive Left Range of motion of the lumbar spine Flexion 30 degrees, extension 10 degrees Straight Leg Raise test: Left/ Right positive at degrees Ad test: positive right / positive left. Severe tenderness over the Sacroiliac joint on the Right / Left sides Gaenslen test: positive bilaterally Seated flexion test: positive bilaterally. Sacral spine : Severe tenderness over the Sacroiliac joint: right side / left side Range of motion: Flexion of the lumbar spine <60 degrees Range of motion: Extension of the lumbar spine <20 degrees Gaenslen's Test positive Ad test: positive right side / left side Thigh Thrust Test Sacral Thrust Test Imaging: CT lumbar spine reviewed Assessment/ Plan : Lumbar spondylosis Recommendation of medication management, PT x 6 wks and follow up at [facility] for possible ESIs. Independence 5/325mg #12 NR Use, side effects, adverse reactions, safe storage discussed. Pt is still on Eliquis and ASA at this time. All questio ns answered. I have spent greater than 30 minutes on patient care today. Dr Sun was available by phone for the evaluation of this patient. The time was used to review the medical records including relevant urine studies and Prescription history (MAPs), review of the available imaging, evaluation and examination of the patient, coordination of care with the medical staff and if applicable refe rring physicians, as well as creation of the medical record - Pain Location Lower Abdomen Non-Pharmacological Interventions: Position/Reposition Pharmacological Interventions: PRN Medication PQRS Narrative: Blood Pressure [Right Arm 83/42 Standing] Blood Pressure [Right Arm 136/73 Sitting] Blood Pressure [Right Arm] 137/71 Blood Pressure 138/61 Pain Intensity [Lower Abdomen] 0 Pain Intensity 10 Pain Scale Used Non Verbal Pain Indicator Scale Used Numeric (1 - 10) Home Medications: Ambulatory Orders Atorvastatin [Lipitor] 20 mg PO DAILY 05/02/21 Insulin Aspart [NovoLOG Flexpen] See Protocol SQ AC-TID 05/02/21 Levothyroxine Sodium [Synthroid] 75 mcg PO DAILY 05/02/21 Magnesium Oxide 400 mg PO DAILY 05/02/21 Apixaban [Eliquis] 5 mg PO BID 09/24/22 Aspirin EC [Ecotrin Low Dose] 81 mg PO Q2D 09/24/22 Tacrolimus [Prograf] 2 mg PO BID 09/24/22 mycophenolate mofetiL [Cellcept] 1,500 mg PO BID 09/24/22 ALPRAZolam [Xanax] 0.25 mg PO DAILY PRN 02/26/24 Dapagliflozin Propanediol [Farxiga] 10 mg PO DAILY 02/26/24 Ergocalciferol [Vitamin D2 (1250 Mcg = 65469 Iu)] 1,250 mcg PO Q14D 02/26/24 Ferrous Sulfate [Feosol] 325 mg PO BID 02/26/24 Insulin Glargine/Lixisenatide [Soliqua 100 Unit-33 Mcg/ml Pen] 28 units SQ DAILY 02/26/24 calcitrioL 0.25 mcg PO FR 02/26/24 carvediloL [Coreg] 3.125 mg PO BID 02/26/24 Epoetin Sriram [Procrit] 10,000 unit SQ FR 03/14/24 DULoxetine HCL [Cymbalta] 20 mg PO DAILY 05/22/24 HYDROcodone/APAP 5-325MG [Independence 5-325] 1 tab PO Q6H PRN 05/22/24 L.acidoph,Paracasei, B.lactis [Probiotic] 1 cap PO DAILY 05/22/24 HYDROcodone/APAP 5-325MG [Independence 5-325] 1 each PO Q6HR PRN 3 Days #12 tab 05/25/24 Controlled Substance Measures - Controlled Substance Measures Is patient prescribed a controlled substance at discharge?: Yes When asked, does pt state using other controlled substances?: Yes If prescribed controlled substance>3 days was MAPS reviewed?: Prescribed <3 Days
[2024-05-26] MEDS ORDERED: dexAMETHasone 4 MG TAB PO SCH (09:00)
--- NOTE | 2024-05-26 13:54 | P.DS ---
Providers Date of admission: 05/22/24 21:13 Attending physician: Magnolia Larson MD Consults: 05/22/24 21:10 Consult Physician Routine Consulting Provider: Misael Tovar Consult Reason/Comments: Lumbar Spinal stenosis Do you want consulting provider notified?: Yes, Notify in am 05/24/24 11:53 Consult Physician Routine Consulting Provider: Crystal Sun Consult Reason/Comments: Pain management Do you want consulting provider notified?: Yes Primary care physician: Physician Nonstaff Hospital Course: Final Diagnosis Severe lower abdominal pain could be combination of UTI and spinal disease Severe spinal canal stenosis of L3-L4 and L4-L5 with no lower extremity weakness or tingling Acute urinary tract infection History of kidney transplant, 1 right pelvic kidney, she is on Prograf and f ollow-up with Dr. Da Silva Left leg DVT on Eliquis at home Right eye blindness Severe hearing difficulty in the left ear Chronic kidney disease stage III Obesity with BMI of 37.5 Discharge Disposition Stable for discharge home. Patient to continue a short course of oral Ceftin as well as a short dexamethasone taper. Patient needs to follow-up with her PCP Dr. Espinosa has an appointment made for May 30 as well as orthopedics in the pain clinic. Hospital Course This is a pleasant 58-year-old female with medical history of diabetes mellitus, DVT, hypertension, hypothyroidism. Patient comes in for worsening lower abdominal pain about 7 out of 10 severity in the suprapubic area as well as mid back pain. Patient does use a cane at baseline and states that she has a history of degenerative disc disease patient denies any weakness or tingling in her lower extremities she has been able to barely ambulate up to the bathroom. Also patient is complaining of some dysuria and decreased urinary frequency and was concern for urinary tract infection. Patient was brought in for evaluation by orthopedics secondary to the lower back pain. Lumbar CT showed right pelvic kidney with no hydronephrosis or stone there is mild haziness around the urinary bladder suspicious for cystitis. Patient has severe L4-L5 and L3-L4 spinal canal stenosis with no fracture but there is severe degenerative disc disease. Patient is continued on Eliquis for history of DVT. Orthopedics eval the patient recommending no surgical treatment patient did not want an MRI for further evaluation as she is claustrophobic. She was given a course of oral dexamethasone with significant improvement and states that her lower back pain is almost at a 0 now. She was evaluated by pain management recommending a course of Lu[place] and outpatient physical therapy over the next 6 weeks and to follow-up in the office with pain management services for possible steroid injection if her pain is not all the way improved. Patient additionally had a culture positive for Klebsiella responded well to the IV ceftriaxone while hospitalized and will continue a course of oral Ceftin on discharge. Pain or shortness of breath no nausea vomiting or diarrhea she is not having any reports of abdominal pain and is urinating without difficulty. She will be discharged home. Please see medication reconciliation for a list of current medications. Thank you for allowing us to participate in the care of this patient. The impression and plan of care has been dictated by Lesa Sanchez Nurse Practitioner as directed. Dr. Kristina MD I have performed a history and physical examination and medical decision making of this patient, discussed the same with the dictator, and agree with the dictators assessment and plan as written, documented as a scribe. Based on total visit time, I have performed more than 50% of this visit. Patient Condition at Discharge: Stable Plan - Discharge Summary New Discharge Prescriptions: New HYDROcodone/APAP 5-325MG [Lu[place] 5-325] 1 each PO Q6HR PRN 3 Days #12 tab PRN Reason: Moderate Pain (Scale 4 To 6) cefUROXime axetiL [Ceftin] 500 mg PO BID 3 Days #6 tab dexAMETHasone ORAL [Hexadrol] 2 mg PO DAILY 3 Days #3.5 tab Continue Levothyroxine Sodium [Synthroid] 75 mcg PO DAILY Magnesium Oxide 400 mg PO DAILY Tacrolimus [Prograf] 2 mg PO BID Aspirin EC [Ecotrin Low Dose] 81 mg PO Q2D mycophenolate mofetiL [Cellcept] 1,500 mg PO BID carvediloL [Coreg] 3.125 mg PO BID Ferrous Sulfate [Iron (65 MG Elemental)] 325 mg PO BID L.acidoph,Paracasei, B.lactis [Probiotic] 1 cap PO DAILY Atorvastatin [Lipitor] 20 mg PO DAILY Insulin Aspart [NovoLOG Flexpen] See Protocol SQ AC-TID Apixaban [Eliquis] 5 mg PO BID Ergocalciferol [Vitamin D2 (1250 Mcg = 94511 Iu)] 1,250 mcg PO Q14D calcitrioL 0.25 mcg PO FR Dapagliflozin Propanediol [Farxiga] 10 mg PO DAILY ALPRAZolam [Xanax] 0.25 mg PO DAILY PRN PRN Reason: Anxiety Insulin Glargine/Lixisenatide [Soliqua 100 Unit-33 Mcg/ml Pen] 28 units SQ DAILY Epoetin Sriram [Procrit] 10,000 unit SQ FR HYDROcodone/APAP 5-325MG [[place] 5-325] 1 tab PO Q6H PRN PRN Reason: Pain DULoxetine HCL [Cymbalta] 20 mg PO DAILY Discharge Medication List Atorvastatin [Lipitor] 20 mg PO DAILY 05/02/21 [History] Insulin Aspart [NovoLOG Flexpen] See Protocol SQ AC-TID 05/02/21 [History] Levothyroxine Sodium [Synthroid] 75 mcg PO DAILY 05/02/21 [History] Magnesium Oxide 400 mg PO DAILY 05/02/21 [History] Apixaban [Eliquis] 5 mg PO BID 09/24/22 [History] Aspirin EC [Ecotrin Low Dose] 81 mg PO Q2D 09/24/22 [History] Tacrolimus [Prograf] 2 mg PO BID 09/24/22 [History] mycophenolate mofetiL [Cellcept] 1,500 mg PO BID 09/24/22 [History] ALPRAZolam [Xanax] 0.25 mg PO DAILY PRN 02/26/24 [History] Dapagliflozin Propanediol [Farxiga] 10 mg PO DAILY 02/26/24 [History] Ergocalciferol [Vitamin D2 (1250 Mcg = 15321 Iu)] 1,250 mcg PO Q14D 02/26/24 [History] Ferrous Sulfate [Iron (65 MG Elemental)] 325 mg PO BID 02/26/24 [History] Insulin Glargine/Lixisenatide [Soliqua 100 Unit-33 Mcg/ml Pen] 28 units SQ DAILY 02/26/24 [History] calcitrioL 0.25 mcg PO FR 02/26/24 [History] carvediloL [Coreg] 3.125 mg PO BID 02/26/24 [History] Epoetin Sriram [Procrit] 10,000 unit SQ FR 03/14/24 [History] DULoxetine HCL [Cymbalta] 20 mg PO DAILY 05/22/24 [History] HYDROcodone/APAP 5-325MG [[place] 5-325] 1 tab PO Q6H PRN 05/22/24 [History] L.acidoph,Paracasei, B.lactis [Probiotic] 1 cap PO DAILY 05/22/24 [History] HYDROcodone/APAP 5-325MG [[place] 5-325] 1 each PO Q6HR PRN 3 Days #12 tab 05/25/24 [Rx] cefUROXime axetiL [Ceftin] 500 mg PO BID 3 Days #6 tab 05/25/24 [Rx] dexAMETHasone ORAL [Hexadrol] 2 mg PO DAILY 3 Days #3.5 tab 05/25/24 [Rx] Follow up Appointment(s)/Referral(s): Deborah Espinosa FNPBC [REFERRING] - 05/30/24 1:30 pm [facility] [NON-STAFF] - 2 Weeks (Patient to contact pain clinic after completion of physical therapy. Epidural Steroid injection outpatient may be arranged for pain control if therapy is not effective. ) Misael Tovar DO [Doctor of Osteopathic Medicine] - 06/16/24 10:30 am Patient Instructions/Handouts: Cefuroxime (By mouth), Hydrocodone/Acetaminophen (By mouth), Dexamethasone (By mouth), Urinary Tract Infection in Women (DC) Activity/Diet/Wound Care/Special Instructions: Pain management recommending 6 weeks of outpatient physical therapy this prescription will need to be obtained by your family doctor. Continue oral prednisone taper for 3 days. Continue all same home medications. Discharge Disposition: HOME SELF-CARE
[2024-05-27] MEDS ORDERED: dexAMETHasone 2 MG TAB PO SCH (09:00)
== END 2024-05-25 16:22 | disposition home or self-care (01) | DRG 690 ==
LOC: EC 17:12 → 5NMEDONC 21:13
PROVIDERS: ADMIT Internal Medicine; ATTEND Internal Medicine
DX: N39.0 Urinary tract infection, site not specified (principal); Z94.0 Kidney transplant status; N18.30 Chronic kidney disease, stage 3 unspecified; I12.9 Hypertensive chronic kidney disease with stage 1 through stage 4 chronic kidney disease, or unspecified chronic kidney disease; Z68.37 Body mass index [BMI] 37.0-37.9, adult; E11.22 Type 2 diabetes mellitus with diabetic chronic kidney disease; M51.16 Intervertebral disc disorders with radiculopathy, lumbar region; E78.5 Hyperlipidemia, unspecified; E66.9 Obesity, unspecified; H54.61 Unqualified visual loss, right eye, normal vision left eye; M47.26 Other spondylosis with radiculopathy, lumbar region; F41.9 Anxiety disorder, unspecified; Z79.4 Long term (current) use of insulin; Z86.16 Personal history of COVID-19; Z87.891 Personal history of nicotine dependence; E03.9 Hypothyroidism, unspecified; Z79.890 Hormone replacement therapy; Z86.718 Personal history of other venous thrombosis and embolism; Z79.01 Long term (current) use of anticoagulants; Z88.1 Allergy status to other antibiotic agents; Z88.2 Allergy status to sulfonamides; B96.1 Klebsiella pneumoniae [K. pneumoniae] as the cause of diseases classified elsewhere; D64.9 Anemia, unspecified; H91.90 Unspecified hearing loss, unspecified ear; M48.061 Spinal stenosis, lumbar region without neurogenic claudication; Z79.624 Long term (current) use of inhibitors of nucleotide synthesis; Z79.84 Long term (current) use of oral hypoglycemic drugs; Z79.899 Other long term (current) drug therapy; Z80.3 Family history of malignant neoplasm of breast; Z98.49 Cataract extraction status, unspecified eye; B96.89 Other specified bacterial agents as the cause of diseases classified elsewhere
CPT/HCPCS: 36415; 72131; 74176; 80048; 80053; 81001; 82150; 83605; 83690; 83735; 85025; 85610; 85730; 86140; 87077; 87086; 87186; 96361; 96374; 96375; 99285

== ENCOUNTER 2024-05-28 10:38 | Emergency (ER) | payer MEDICARE, OTHER ==
[2024-05-28 10:43] VITALS: TEMP 97.6
--- NOTE | 2024-05-28 11:00 | ED ---
General Adult HPI - General Chief complaint: Back Pain/Injury Stated complaint: Lower back pain Time Seen by Provider: 05/28/24 10:57 Source: patient, RN notes reviewed Mode of arrival: wheelchair Limitations: no limitations - History of Present Illness Initial comments: 58 [id number] presents with lower back pain rated 10/10 on a 10 point scale radiating to hips bilaterally. Pain started this morining after reportedly not taking her steroid medications. She denies urinary retention, bowel incontinence, paresthesias, impaired coordination. Denies abdominal pain. She was previously seen and treated for cystitis and discharged earlier this week on oral Ceftin and a dexamethasone taper. Significant to her previous admission and current complaint, Imaging did show severe L4-L5 spinal canal stenosis. - Related Data Home Medications Medication Instructions Recorded Confirmed Atorvastatin [Lipitor] 20 mg PO DAILY 05/02/21 05/22/24 Insulin Aspart [NovoLOG Flexpen] See Protocol SQ AC-TID 05/02/21 05/22/24 Levothyroxine Sodium [Synthroid] 75 mcg PO DAILY 05/02/21 05/22/24 Magnesium Oxide 400 mg PO DAILY 05/02/21 05/22/24 Apixaban [Eliquis] 5 mg PO BID 09/24/22 05/22/24 Aspirin EC [Ecotrin Low Dose] 81 mg PO Q2D 09/24/22 05/22/24 Tacrolimus [Prograf] 2 mg PO BID 09/24/22 05/22/24 mycophenolate mofetiL [Cellcept] 1,500 mg PO BID 09/24/22 05/22/24 ALPRAZolam [Xanax] 0.25 mg PO DAILY PRN 02/26/24 05/22/24 Dapagliflozin Propanediol [Farxiga] 10 mg PO DAILY 02/26/24 05/22/24 Ergocalciferol [Vitamin D2 (1250 1,250 mcg PO Q14D 02/26/24 05/22/24 Mcg = 07302 Iu)] Ferrous Sulfate [Iron (65 MG 325 mg PO BID 02/26/24 05/22/24 Elemental)] Insulin Glargine/Lixisenatide 28 units SQ DAILY 02/26/24 05/22/24 [Soliqua 100 Unit-33 Mcg/ml Pen] calcitrioL 0.25 mcg PO FR 02/26/24 05/22/24 carvediloL [Coreg] 3.125 mg PO BID 02/26/24 05/22/24 Epoetin Sriram [Procrit] 10,000 unit SQ FR 03/14/24 05/22/24 DULoxetine HCL [Cymbalta] 20 mg PO DAILY 05/22/24 05/22/24 HYDROcodone/APAP 5-325MG [[place] 1 tab PO Q6H PRN 05/22/24 05/22/24 5-325] L.acidoph,Paracasei, B.lactis 1 cap PO DAILY 05/22/24 05/22/24 [Probiotic] Previous Rx's Medication Instructions Recorded HYDROcodone/APAP 5-325MG [[place] 1 each PO Q6HR PRN 3 Days #12 tab 05/25/24 5-325] cefUROXime axetiL [Ceftin] 500 mg PO BID 3 Days #6 tab 05/25/24 dexAMETHasone ORAL [Hexadrol] 2 mg PO DAILY 3 Days #3.5 tab 05/25/24 HYDROcodone/APAP 10-325MG [[place] 1 tab PO Q6HR PRN 3 Days #12 tab 05/28/24 10-325] Lidocaine 5% Patch [Lidoderm 5% 1 patch TOPICAL DAILY #7 patch 05/28/24 Patch] Lidocaine 5% Patch [Lidoderm] 1 patch TOPICAL DAILY #7 patch 05/28/24 Allergies Allergy/AdvReac Type Severity Reaction Status Date / Time clindamycin Allergy Rash/Hives Verified 05/28/24 10:43 sulfamethoxazole AdvReac "too Verified 05/28/24 10:43 [From Bactrim] strong" trimethoprim [From Bactrim] AdvReac "too Verified 05/28/24 10:43 strong" Review of Systems ROS Statement: Those systems with pertinent positive or pertinent negative responses have been documented in the HPI. ROS Other: All systems not noted in ROS Statement are negative. 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 Right shoulder problems. Bloating. Anemia. Hx kidney transplant 2011(unsure which kidney) due to Diabetes. Hx Covid 04/2021, was hospitalized for 1 week, then air lifted to [place], was there for 2 months, had tracheostomy, DVT's in left leg and was in coma for 3 days. History of Any Multi-Drug Resistant Organisms: None Reported Past Surgical History: Cholecystectomy Additional Past Surgical History / Comment(s): Kidney transplant 2011, hx tracheostomy with reversal, left leg bypass due to DVT's, colonoscopy, EGD, cataract surgery. Past Anesthesia/Blood Transfusion Reactions: No Reported Reaction Past Psychological History: Anxiety Smoking Status: Former smoker Past Alcohol Use History: None Reported Past Drug Use History: None Reported - Past Family History Mother Family Medical History: Cancer Additional Family Medical History / Comment(s): Breast cancer. General Exam Limitations: no limitations General appearance: alert Head exam: Present: atraumatic, normocephalic, normal inspection Eye exam: Present: normal appearance, PERRL, EOMI. Absent: scleral icterus, conjunctival injection, periorbital swelling ENT exam: Present: normal exam, mucous membranes moist Neck exam: Present: normal inspection. Absent: tenderness, meningismus, lymphadenopathy Respiratory exam: Present: normal lung sounds bilaterally. Absent: respiratory distress, wheezes, rales, rhonchi, stridor Cardiovascular Exam: Present: regular rate, normal rhythm, normal heart sounds. Absent: systolic murmur, diastolic murmur, rubs, gallop, clicks GI/Abdominal exam: Present: soft, normal bowel sounds. Absent: distended, tenderness, guarding, rebound, rigid Extremities exam: Present: normal inspection, full ROM, normal capillary refill. Absent: tenderness, pedal edema, joint swelling, calf tenderness Back exam: Present: normal inspection, tenderness Neurological exam: Present: alert, oriented X3, CN II-XII intact Psychiatric exam: Present: normal affect, normal mood Skin exam: Present: warm, dry, intact, normal color. Absent: rash Course Vital Signs 05/28/24 10:41 Temperature 97.6 F Pulse Rate 77 Respiratory 20 Rate Blood Pressure 155/67 O2 Sat by Pulse 99 Oximetry Medical Decision Making - Medical Decision Making Was pt. sent in by a medical professional or institution (, PA, VISUAL EFFECTS EDITOR, urgent care, hospital, or shelter...) When possible be specific @ -No Did you speak to anyone other than the patient for history (EMS, parent, family, police, friend...)? What history was obtained from this source @ -No Did you review nursing and triage notes (agree or disagree)? Why? @ -I reviewed and agree with nursing and triage notes Were old charts reviewed (outside hosp., previous admission, EMS record, old EKG, old radiological studies, urgent care reports/EKG's, shelter records)? Report findings @ -Viewed recent inpatient records CBC comp urine culture orthopedics evaluation Differential Diagnosis (chest pain, altered mental status, abdominal pain women, abdominal pain men, vaginal bleeding, weakness, fever, dyspnea, syncope, headache, dizziness, GI bleed, back pain, seizure, CVA, palpatations, mental health, musculoskeletal)? @ -Differential Back Pain: Strain, zoster, cauda equina syndrome, epidural abscess, vertebral osteomyelitis, discitis, fracture, subluxation, disc herniation, DJD, spinal stenosis, dissection, AAA, pancreatitis, peptic ulcer disease, pyelonephritis, kidney stone, this is not meant to be an all-inclusive list. EKG interpreted by me (3pts min.). @ -None X-rays interpreted by me (1pt min.). @ -None done CT interpreted by me (1pt min.). @ -None done U/S interpreted by me (1pt. min.). @ -None done What testing was considered but not performed or refused? (CT, X-rays, U/S, labs)? Why? @ -None What meds were considered but not given or refused? Why? @ -None Did you discuss the management of the patient with other professionals (professionals i.e. , PA, VISUAL EFFECTS EDITOR, lab, RT, psych nurse, social services counselor, aircraft manager, teacher, real estate utilization officer, case checker)? Give summary @ -No Was smoking cessation discussed for >3mins.? @ -No Was critical care preformed (if so, how long)? @ -No Were there social determinants of health that impacted care today? How? (Homelessness, low income, unemployed, alcoholism, drug addiction, transportation, low edu. Level, literacy, decrease access to med. care, detention, rehab)? @ -No Was there de-escalation of care discussed even if they declined (Discuss DNR or withdrawal of care, Hospice)? DNR status @ -No What co-morbidities impacted this encounter? (DM, HTN, Smoking, COPD, CAD, Cancer, CVA, ARF, Chemo, Hep., AIDS, mental health diagnosis, sleep apnea, morbid obesity)? @ -None Was patient admitted / discharged? Hospital course, mention meds given and route, prescriptions, significant lab abnormalities, going to OR and other pertinent info. @ -Discharge patient pain is improved patient has reproducible lumbar back pain. Patient has no red flag symptoms. Patient agrees with plan will follow-up with the PCP for pain control and at her scheduled pain management appointment. Undiagnosed new problem with uncertain prognosis? @ -No Drug Therapy requiring intensive monitoring for toxicity (Heparin, Nitro, Insulin, Cardizem)? @ -No Were any procedures done? @ -No Diagnosis/symptom? @ -Lumbar back pain Acute, or Chronic, or Acute on Chronic? @ -Acute Uncomplicated (without systemic symptoms) or Complicated (systemic symptoms)? @ -Uncomplicated Side effects of treatment? @ -No Exacerbation, Progression, or Severe Exacerbation? @ -No Poses a threat to life or bodily function? How? (Chest pain, USA, VT, pneumonia, PE, COPD, DKA, ARF, appy, cholecystitis, CVA, Diverticulitis, Homicidal, Suicida l, threat to staff... and all critical care pts) @ -No - Lab Data Result diagrams: 05/28/24 11:48 05/28/24 11:48 Lab Results 05/28/24 05/28/24 05/28/24 Range/Units 11:17 11:48 11:48 WBC 6.5 (3.8-10.6) k/uL RBC 3.36 L (3.80-5.40) m/uL Hgb 8.6 L (11.4-16.0) gm/dL Hct 28.8 L (34.0-46.0) % MCV 85.8 (80.0-100.0) fL MCH 25.6 (25.0-35.0) pg MCHC 29.8 L (31.0-37.0) g/dL RDW 17.8 H (11.5-15.5) % Plt Count 224 (150-450) k/uL MPV 8.9 Neutrophils % 87 % Lymphocytes % 6 % Monocytes % 6 % Eosinophils % 0 % Basophils % 0 % Neutrophils # 5.6 (1.3-7.7) k/uL Lymphocytes # 0.4 L (1.0-4.8) k/uL Monocytes # 0.4 (0-1.0) k/uL Eosinophils # 0.0 (0-0.7) k/uL Basophils # 0.0 (0-0.2) k/uL Hypochromasia Marked Anisocytosis Slight Sodium (137-145) mmol/L Potassium (3.5-5.1) mmol/L Chloride (98-107) mmol/L Carbon Dioxide (22-30) mmol/L Anion Gap mmol/L BUN (7-17) mg/dL Creatinine (0.52-1.04) mg/dL Est GFR (CKD-EPI)AfAm (>60 ml/min/1.73 sqM) Est GFR (CKD-EPI)NonAf (>60 ml/min/1.73 sqM) Glucose (74-99) mg/dL Plasma Lactic Acid Carrillo 1.5 (0.7-2.0) mmol/L Calcium (8.4-10.2) mg/dL Total Bilirubin (0.2-1.3) mg/dL AST (14-36) U/L ALT (4-34) U/L Alkaline Phosphatase (38-126) U/L Total Protein (6.3-8.2) g/dL Albumin (3.5-5.0) g/dL Urine Color Colorless Urine Appearance Clear (Clear) Urine pH 6.0 (5.0-8.0) Ur Specific [place] 1.018 (1.001-1.035) Urine Protein Negative (Negative) Urine Glucose (UA) 4+ H (Negative) Urine Ketones Negative (Negative) Urine Blood Trace H (Negative) Urine Nitrite Negative (Negative) Urine Bilirubin Negative (Negative) Urine Urobilinogen <2.0 (<2.0) mg/dL Ur Leukocyte Esterase Negative (Negative) Urine RBC 1 (0-5) /hpf Urine WBC <1 (0-5) /hpf 05/28/24 Range/Units 11:48 WBC (3.8-10.6) k/uL RBC (3.80-5.40) m/uL Hgb (11.4-16.0) gm/dL Hct (34.0-46.0) % MCV (80.0-100.0) fL MCH (25.0-35.0) pg MCHC (31.0-37.0) g/dL RDW (11.5-15.5) % Plt Count (150-450) k/uL MPV Neutrophils % % Lymphocytes % % Monocytes % % Eosinophils % % Basophils % % Neutrophils # (1.3-7.7) k/uL Lymphocytes # (1.0-4.8) k/uL Monocytes # (0-1.0) k/uL Eosinophils # (0-0.7) k/uL Basophils # (0-0.2) k/uL Hypochromasia Anisocytosis Sodium 132 L (137-145) mmol/L Potassium 3.8 (3.5-5.1) mmol/L Chloride 104 (98-107) mmol/L Carbon Dioxide 25 (22-30) mmol/L Anion Gap 3 mmol/L BUN 26 H (7-17) mg/dL Creatinine 0.69 (0.52-1.04) mg/dL Est GFR (CKD-EPI)AfAm >90 (>60 ml/min/1.73 sqM) Est GFR (CKD-EPI)NonAf >90 (>60 ml/min/1.73 sqM) Glucose 115 H (74-99) mg/dL Plasma Lactic Acid Carrillo (0.7-2.0) mmol/L Calcium 9.1 (8.4-10.2) mg/dL Total Bilirubin 0.6 (0.2-1.3) mg/dL AST 21 (14-36) U/L ALT 18 (4-34) U/L Alkaline Phosphatase 75 (38-126) U/L Total Protein 6.0 L (6.3-8.2) g/dL Albumin 3.7 (3.5-5.0) g/dL Urine Color Urine Appearance (Clear) Urine pH (5.0-8.0) Ur Specific [place] (1.001-1.035) Urine Protein (Negative) Urine Glucose (UA) (Negative) Urine Ketones (Negative) Urine Blood (Negative) Urine Nitrite (Negative) Urine Bilirubin (Negative) Urine Urobilinogen (<2.0) mg/dL Ur Leukocyte Esterase (Negative) Urine RBC (0-5) /hpf Urine WBC (0-5) /hpf Disposition Clinical Impression: Lumbar back pain Disposition: HOME SELF-CARE Condition: Stable Instructions (If sedation given, give patient instructions): Acute Low Back Pain (ED) Additional Instructions: Please return to the Emergency Department if symptoms worsen or any other concerns. Prescriptions: Lidocaine 5% Patch [Lidoderm] 1 patch TOPICAL DAILY #7 patch Lidocaine 5% Patch [Lidoderm 5% Patch] 1 patch TOPICAL DAILY #7 patch HYDROcodone/APAP 10-325MG [[place] 10-325] 1 tab PO Q6HR PRN 3 Days #12 tab PRN Reason: Pain Is patient prescribed a controlled substance at d/c from ED?: Yes When asked, does pt state using other controlled substances?: No If prescribed controlled substance>3 days was MAPS reviewed?: Prescribed <3 Days If opioid is for acute pain is fill amount 7 days or less?: Yes If Rx opioid, was Start Talking consent form obtained?: Yes Referrals: Nonstaff,Physician [Primary Care Provider] - 1-2 days Time of Disposition: 12:55
[2024-05-28 11:28] LABS: Appearance,Urine Clear (Clear); Bilirubin,Urine Negative (Negative); Blood,Urine Trace (Negative); Color,Urine Colorless; Glucose,Urine (UA) 4+ (Negative); Ketones,Urine Negative (Negative); Leukocyte Esterase,Urine Negative (Negative); Nitrite,Urine Negative (Negative); Protein,Urine Negative (Negative); RBC,Urine 1 /hpf (0-5); Specific Gravity,Urine 1.018 (1.001-1.035); Urobilinogen,Urine <2.0 mg/dL (<2.0); WBC,Urine <1 /hpf (0-5)
[2024-05-28] MEDS: HYDROmorphone 0.5 MG/0.5 ML SYRINGE IVP STA ×2 (11:51→13:24)
[2024-05-28 12:03] LABS: Anisocytosis Slight; Basophils % (A) 0 %; Eosinophils % (A) 0 %; HCT 28.8 % (34.0-46.0); HGB 8.6 gm/dL (11.4-16.0); Hypochromasia Marked; Lymphocytes # (A) 0.4 k/uL (1.0-4.8); Lymphocytes % (A) 6 %; MCH 25.6 pg (25.0-35.0); MCHC 29.8 g/dL (31.0-37.0); MCV 85.8 fL (80.0-100.0); Mean Platelet Volume 8.9; Monocytes # (A) 0.4 k/uL (0-1.0); Monocytes % (A) 6 %; Neutrophils # (A) 5.6 k/uL (1.3-7.7); Neutrophils % (A) 87 %; Platelet Count 224 k/uL (150-450); RBC 3.36 m/uL (3.80-5.40); RDW 17.8 % (11.5-15.5); WBC 6.5 k/uL (3.8-10.6)
[2024-05-28 12:16] LABS: ALT 18 U/L (4-34); AST 21 U/L (14-36); African American GFR (CKD) >90 (>60 ml/min/1.73 sqM); Albumin 3.7 g/dL (3.5-5.0); Alkaline Phosphatase 75 U/L (38-126); Blood Urea Nitrogen 26 mg/dL (7-17); Calcium 9.1 mg/dL (8.4-10.2); Carbon Dioxide 25 mmol/L (22-30); Glucose 115 mg/dL (74-99); Non-African American GFR(CKD) >90 (>60 ml/min/1.73 sqM); Total Bilirubin 0.6 mg/dL (0.2-1.3)
[2024-05-28 12:33] LABS: Anion Gap 3 mmol/L; Chloride 104 mmol/L (98-107); Potassium 3.8 mmol/L (3.5-5.1); Sodium 132 mmol/L (137-145)
[2024-05-28 13:23] VITALS: BP 152/68; PULSE 76; RESP 18
[2024-05-28] MEDS: LIDOCAINE 4% PATCH TOPICAL ONE (13:23)
== END 2024-05-28 13:40 | disposition home or self-care (01) ==
LOC: EC 10:38
CPT/HCPCS: 36415; 80053; 81001; 83605; 85025; 96374; 96376; 99283